=== PATIENT | male | born 1950 | race Two or more races ===

== ENCOUNTER 2022-11-14 22:21 | Emergency (ER) | payer MEDICARE, OTHER ==
[~2022-11-14] VITALS: Ht 177.8 cm; Wt 86.3 kg
[2022-11-15] MEDS ORDERED: LIDOCAINE 1% HCL (LOCAL ANESTH.) INJ 20ML MDV ONE (04:14)
[2022-11-15 04:20] VITALS: PULSE 100; RESP 16; O2SAT 97
[2022-11-15] MEDS ORDERED: MUPI2OIN2 EX (04:42)
[2022-11-15] MEDS ORDERED: CEPH500C PO (04:42)
[2022-11-15] MEDS ORDERED: NEOMYCIN-BACITRACIN-POLYM UNITDOSE PKG TOP OINT TOP ONE (04:45)
[2022-11-15] MEDS ORDERED: HYDROcodone-ACET 5/325MG TAB PO ONE (04:45)
[2022-11-15] MEDS ORDERED: ceFAZolin IM 1GM/2.5ML STERILE WATER IM ONE (04:45)
[2022-11-15] MEDS ORDERED: ceFAZolin 1GM VL ONE (04:58)
[2022-11-15 08:10] VITALS: PULSE 88; RESP 18; TEMP 98.9; O2SAT 98
[2022-11-15 08:23] VITALS: BP 156/84
== END 2022-11-15 08:22 | disposition home or self-care (01) ==
LOC: EDBD 22:21 → ER 22:21
DX: S91.115A Laceration without foreign body of left lesser toe(s) without damage to nail, initial encounter (principal); I10 Essential (primary) hypertension; E11.9 Type 2 diabetes mellitus without complications; Z79.899 Other long term (current) drug therapy; W26.8XXA Contact with other sharp object(s), not elsewhere classified, initial encounter; Y93.89 Activity, other specified; Y92.89 Other specified places as the place of occurrence of the external cause; Y99.8 Other external cause status
CPT/HCPCS: 12004; 96372; 99285; J0690; J2001

== ENCOUNTER 2024-01-06 10:53 | Inpatient (IN) | payer MEDICARE, OTHER ==
[~2024-01-06] VITALS: Ht 177.8 cm; Wt 68.3 kg
[~2024-01-06 10:53] MED LIST: CEPH500C PO; HYDR25TA4 PO; MELO15TA29 PO; MUPI2OIN2 EX; SEMA4INJ SC
[2024-01-06 11:15] VITALS: PULSE 113; RESP 25; O2SAT 97
[2024-01-06] MEDS: ONDANSETRON HCL 4 MG/2 ML VIAL IV ONE (11:30)
[2024-01-06] MEDS: SODIUM CHLORIDE 0.9% 1,000 ML IV ONE (11:30)
[2024-01-06] MEDS: SODIUM CHLORIDE 0.9% 500 ML IV ONE (11:30)
[2024-01-06] MEDS: InsuLIN REG 1unit/0.01ml Soln (100units/ml) IV ONE (11:31)
[2024-01-06 11:33] LABS: Basophils # (auto) 0 10 ^3/uL (0-0.2); Eosinophils # (auto) 0 10 ^3/uL (0-0.8); Lymphocytes # (auto) 0.6 10 ^3/uL (0.4-5.4); Mean Corpuscular Hemoglobin 36.4 pg (28.0-32.0)
[2024-01-06 11:35] LABS: Basophils % (auto) 0.2 % (0.0-2.0); Hematocrit 49.5 % (41.0-53.0); Hemoglobin 16.1 g/dL (13.5-17.5); Lymphocytes % (auto) 3.8 % (10.0-50.0); Mean Corpuscular Hgb Conc. 32.4 g/dL (32.0-36.0); Mean Corpuscular Volume 112.2 fL (80.0-100.0); Monocytes # (auto) 1.2 10 ^3/uL (0-1.3); Monocytes % (auto) 7.4 % (0.0-12.0); Neutrophils # (auto) 14.1 10 ^3/uL (1.6-8.6); Neutrophils % (auto) 88.6 % (37.0-80.0); Nucleated Red Blood Cells % 0.1 %; Platelet Count (auto) 286 10^3/uL (140-450); Red Blood Cells 4.41 10^6/uL (4.5-5.90); Red Cell Distribution Width 13.5 % (11.8-14.3); White Blood Cell 15.9 10^3/uL (4.4-10.8)
[2024-01-06 11:44] LABS: Chloride 97 mmol/L (98-107); Sodium 139 mmol/L (136-145)
[2024-01-06 11:45] LABS: Anion Gap 32.00001 (5-15); Calcium 9.5 mg/dL (8.7-10.4)
[2024-01-06 11:50] LABS: BUN/Creatinine Ratio 12.3 (10.0-20.0); Blood Urea Nitrogen 31 mg/dL (9-23)
[2024-01-06 11:56] LABS: Carbon Dioxide < 10 mmol/L (20-31); Glucose 503 mg/dL (74-106); Potassium 5.8 mmol/L (3.5-5.1)
[2024-01-06] MEDS ORDERED: DEXTROSE (50%) 50ML SYRG IV PRN (12:00)
[2024-01-06] MEDS: SODIUM BICARB 8.4% 50Meq/50ml SYR Vial IV ONE (12:09)
[2024-01-06] MEDS: ACCU-CHEK COMFORT CURVE STRIP VI SCH (12:14)
[2024-01-06] MEDS: INSULIN DRIP 100 UNIT/100ML 100 ML IV SCH (12:15)
[2024-01-06] MEDS: INSULIN LANTUS (GLARGINE) 1 /0.01ml (100units/ml) SC ONE (12:15)
[2024-01-06 13:21] LABS: Macrocytosis Moderate; Platelet Estimate Adequate
[2024-01-06] MEDS ORDERED: AMLO1TAB22 PO (15:04)
[2024-01-06] MEDS ORDERED: CARV3.1240 PO (15:04)
[2024-01-06] MEDS ORDERED: GABA-1250 PO (15:04)
[2024-01-06] MEDS ORDERED: ATOR10TA52 PO (15:04)
[2024-01-06 15:08] LABS: Urine Bacteria None Seen /hpf (None Seen)
[2024-01-06] MEDS ORDERED: ONDANSETRON HCL 4 MG/2 ML VIAL IV PRN (15:15)
[2024-01-06 15:16] LABS: Urine Blood Negative /uL (Negative); Urine Clarity Clear (Clear); Urine Color Light-Yellow (Yellow); Urine Hyaline Cast FEW /lpf (0 - 2); Urine Mucus FEW (None Seen); Urine Protein, UAD 1+ (Negative); Urine Specific Gravity 1.017 (1.001-1.035); Urine Urobilinogen Normal (Negative); Urine WBC 1 /hpf (0 - 3)
[2024-01-06] MEDS: SODIUM CHLORIDE 0.9% 1,000 ML IV SCH (15:25)
[2024-01-06 15:30] LABS: Triglycerides 198 mg/dL (< 150)
[2024-01-06] MEDS ORDERED: hydrALAZINE HCL 20 MG/ML VL IV PRN (15:30)
[2024-01-06 15:31] LABS: LDL Cholesterol 200 mg/dL (< 100)
[2024-01-06 15:32] LABS: Cholesterol 276 mg/dL (< 200); HDL Cholesterol 72 mg/dL (40-59)
[2024-01-06 15:48] LABS: Amphetamine Screen, Urine Neg (NEGATIVE); Barbiturate Scree,Urine Neg (NEGATIVE); Benzodiazephine Screen, Urine Neg (NEGATIVE); Cocaine Screen, Urine Neg (NEGATIVE); Opiate Scree,Urine Neg (NEGATIVE)
[2024-01-06 15:49] LABS: Cannabinoid Screen, Urine Neg (NEGATIVE); Phencyclidine Screen, Urine Neg (NEGATIVE)
[2024-01-06 19:46] LABS: Chloride 106 mmol/L (98-107); Potassium 4.6 mmol/L (3.5-5.1); Sodium 143 mmol/L (136-145)
[2024-01-06 19:47] LABS: Anion Gap 19 (5-15); Carbon Dioxide 18 mmol/L (20-31)
[2024-01-06 19:53] LABS: BUN/Creatinine Ratio 16.2 (10.0-20.0); Blood Urea Nitrogen 33 mg/dL (9-23)
[2024-01-06 19:54] LABS: Glucose 219 mg/dL (74-106)
[2024-01-06] MEDS: CARVEDILOL 3.125 MG TAB PO SCH (22:00)
[2024-01-06] MEDS: GABAPENTIN 300 MG CAP PO SCH (22:09)
[2024-01-07 01:23] LABS: Chloride 107 mmol/L (98-107); Potassium 4.3 mmol/L (3.5-5.1); Sodium 141 mmol/L (136-145)
[2024-01-07 01:24] LABS: Anion Gap 12 (5-15); Carbon Dioxide 22 mmol/L (20-31)
[2024-01-07 01:29] LABS: BUN/Creatinine Ratio 16.7 (10.0-20.0); Blood Urea Nitrogen 31 mg/dL (9-23); Glucose 206 mg/dL (74-106)
[2024-01-07] MEDS ORDERED: DEXTROSE (50%) 50ML SYRG IV PRN (05:15)
[2024-01-07 07:04] LABS: Basophils # (auto) 0 10 ^3/uL (0-0.2); Eosinophils # (auto) 0 10 ^3/uL (0-0.8); Mean Corpuscular Hgb Conc. 35.1 g/dL (32.0-36.0); Neutrophils # (auto) 7.3 10 ^3/uL (1.6-8.6)
[2024-01-07 07:06] LABS: Basophils % (auto) 0.2 % (0.0-2.0); Hematocrit 41.5 % (41.0-53.0); Hemoglobin 14.6 g/dL (13.5-17.5); Lymphocytes % (auto) 11.3 % (10.0-50.0); Mean Corpuscular Hemoglobin 37.3 pg (28.0-32.0); Mean Corpuscular Volume 106.3 fL (80.0-100.0); Monocytes # (auto) 0.8 10 ^3/uL (0-1.3); Monocytes % (auto) 9.1 % (0.0-12.0); Neutrophils % (auto) 79.4 % (37.0-80.0); Nucleated Red Blood Cells % 0.2 %; Platelet Count (auto) 211 10^3/uL (140-450); Red Cell Distribution Width 12.8 % (11.8-14.3); White Blood Cell 9.2 10^3/uL (4.4-10.8)
[2024-01-07 07:35] LABS: Alanine Aminotransferase 74 U/L (7-40); Albumin 4.2 g/dL (3.2-4.8); Alkaline Phosphatase 37 U/L (46-116); Anion Gap 13 (5-15); Aspartate Aminotransferase 65 U/L (13-40); BUN/Creatinine Ratio 21.8 (10.0-20.0); Bilirubin, Total 1.2 mg/dL (0.2-1.0); Blood Urea Nitrogen 36 mg/dL (9-23); Calcium 9.1 mg/dL (8.7-10.4); Carbon Dioxide 23 mmol/L (20-31); Chloride 108 mmol/L (98-107); Glucose 133 mg/dL (74-106); Potassium 4.2 mmol/L (3.5-5.1); Sodium 144 mmol/L (136-145)
[2024-01-07 07:36] LABS: Total Protein 6.5 g/dL (5.7-8.2)
[2024-01-07] MEDS: ACCU-CHEK COMFORT CURVE STRIP VI SCH ×2 (08:00→21:49)
[2024-01-07] MEDS: InsuLIN REG 1unit/0.01ml Soln (100units/ml) SC SCH (09:31)
[2024-01-07] MEDS: ENOXAPARIN SOD 30 MG/0.3 ML SYRINGE SC SCH (10:00)
[2024-01-07] MEDS: ATORVASTATIN 20 MG TAB PO SCH (10:00)
[2024-01-07] MEDS: amLODIPine BESYLATE 5 MG TAB PO SCH (10:00)
[2024-01-07] MEDS: INSULIN LANTUS (GLARGINE) 1 /0.01ml (100units/ml) SC SCH (10:00)
[2024-01-07] MEDS ORDERED: SODIUM CHLORIDE 0.9% 1,000 ML IV SCH (15:45)
[2024-01-07] MEDS: THIAMINE 100mg/ml INJ (200mg/2ml VIAL) IV ONE (16:15)
[2024-01-07] MEDS: FOLIC ACID 1 MG in D5W 5% 50 ML INJ ONE (16:15)
[2024-01-07] MEDS: LORazepam 2MG/ML-1ML VIAL IV PRN (16:51)
[2024-01-07 19:05] VITALS: RESP 23; O2SAT 95
[2024-01-07 19:40] LABS: COVID19 ANTIGEN SOFIA FIA NEGATIVE (NEGATIVE); Rapid Influenza A Negative (Negative); Rapid Influenza B Negative (Negative)
[2024-01-07 21:56] LABS: Folate (Folic Acid) 35.81 ng/mL (>5.38)
[2024-01-07 22:53] VITALS: PULSE 113; RESP 20; O2SAT 97
[2024-01-08] VITALS (10 sets, daily range): BP systolic 114–149; BP diastolic 67–80; PULSE 101–113; RESP 18–26; TEMP 81.5–98.7; O2SAT 92–98
[2024-01-08] MEDS ORDERED: ENAL5TAB22 PO (00:22)
[2024-01-08] MEDS ORDERED: METF-370 PO (00:22)
[2024-01-08] MEDS: InsuLIN REG 1unit/0.01ml Soln (100units/ml) SC SCH ×3 (06:31→22:38)
[2024-01-08 06:41] LABS: Hematocrit 42.9 % (41.0-53.0); Red Blood Cells 3.99 10^6/uL (4.5-5.90)
[2024-01-08 06:44] LABS: Hemoglobin 15.2 g/dL (13.5-17.5); Mean Corpuscular Hgb Conc. 35.4 g/dL (32.0-36.0); Mean Corpuscular Volume 107.4 fL (80.0-100.0); Platelet Count (auto) 184 10^3/uL (140-450); Red Cell Distribution Width 13.1 % (11.8-14.3); White Blood Cell 5.3 10^3/uL (4.4-10.8)
[2024-01-08 06:55] LABS: Alanine Aminotransferase 80 U/L (7-40); Albumin 4.1 g/dL (3.2-4.8); Alkaline Phosphatase 40 U/L (46-116); Anion Gap 17 (5-15); Aspartate Aminotransferase 99 U/L (13-40); BUN/Creatinine Ratio 28.1 (10.0-20.0); Blood Urea Nitrogen 41 mg/dL (9-23); Calcium 9.2 mg/dL (8.7-10.4); Carbon Dioxide 20 mmol/L (20-31); Chloride 110 mmol/L (98-107); Magnesium 2.1 mg/dL (1.6-2.6); Potassium 4.6 mmol/L (3.5-5.1); Sodium 147 mmol/L (136-145)
[2024-01-08 06:56] LABS: Phosphorus 2.5 mg/dL (2.4-5.1); Total Protein 6.6 g/dL (5.7-8.2)
[2024-01-08 06:57] LABS: Glucose 289 mg/dL (74-106)
[2024-01-08 07:19] LABS: Basophils % (manual) 0 (0.0-2.0); Blast Cells 0; Eosinophils % (manual) 0 (0-7); Metamyelocytes % 0; Myelocytes % 0; Promyelocytes % 0; Reactive Lymphocytes 0
[2024-01-08] MEDS: FOLIC ACID 1 MG in D5W 5% 50 ML INJ SCH (10:00)
[2024-01-08] MEDS: THIAMINE 100mg/ml INJ (200mg/2ml VIAL) IV SCH (10:41)
[2024-01-08] MEDS: ATORVASTATIN 20 MG TAB PO SCH ×2 (10:46→22:46)
[2024-01-08 10:54] LABS: Band Neutrophils % (manual) 20; Lymphocytes % (manual) 12 (10.0-50.0); Macrocytosis Moderate; Monocytes % (manual) 10 (0-12); Platelet Estimate Adequate
[2024-01-08] MEDS ORDERED: DEXTROSE (50%) 50ML SYRG IV PRN (11:30)
[2024-01-08] MEDS: INSULIN LANTUS (GLARGINE) 1 /0.01ml (100units/ml) SC SCH (11:30)
[2024-01-08] MEDS: ACCU-CHEK COMFORT CURVE STRIP VI SCH (11:30)
[2024-01-08] MEDS ORDERED: SODIUM CHLORIDE 0.9% 1,000 ML IV SCH (12:30)
[2024-01-08] MEDS: ASPirin 81 mg TAB PO ONE (13:00)
[2024-01-08] MEDS: SODIUM CHLORIDE 0.9% 1,000 ML IV SCH (14:45)
[2024-01-08 15:11] LABS: Hematocrit 42.9 % (41.0-53.0); Hemoglobin 14.9 g/dL (13.5-17.5); Mean Corpuscular Hemoglobin 37.3 pg (28.0-32.0); Mean Corpuscular Hgb Conc. 34.8 g/dL (32.0-36.0); Mean Corpuscular Volume 107.4 fL (80.0-100.0); Platelet Count (auto) 196 10^3/uL (140-450); Red Blood Cells 3.99 10^6/uL (4.5-5.90); Red Cell Distribution Width 13.1 % (11.8-14.3); White Blood Cell 4.5 10^3/uL (4.4-10.8)
[2024-01-08 15:24] LABS: Basophils % (manual) 0 (0.0-2.0); Blast Cells 0; Eosinophils % (manual) 0 (0-7); Metamyelocytes % 0; Myelocytes % 0; Promyelocytes % 0; Reactive Lymphocytes 0
[2024-01-08 15:30] LABS: INR 1.04 (0.9-1.15); Partial Thromboplastin Time 24.5 SEC (24.5-34.5)
[2024-01-08 16:09] LABS: Band Neutrophils % (manual) 7; Lymphocytes % (manual) 28 (10.0-50.0); Monocytes % (manual) 9 (0-12)
[2024-01-08 16:10] LABS: Macrocytosis Slight; Platelet Estimate Adequate
[2024-01-08] MEDS: IPRATROPIUM BROM 0.5 MG/2.5ML INH SOL NEB PRN (18:28)
[2024-01-08] MEDS: ALBUTEROL SULF 2.5 MG/0.5ML(0.5%) NEB SOLN NEB PRN (18:28)
[2024-01-08] MEDS: ACETYLCYSTEINE 20%(200MG/ML) SOL 4ML NEB SCH (18:29)
[2024-01-08] MEDS: HEPARIN DRIP/D5W 100UNITS/ML 250 ML IV SCH (19:09)
[2024-01-08] MEDS ORDERED: ATORVASTATIN 20 MG TAB PO SCH (22:00)
[2024-01-08] MEDS: FUROSEMIDE 20 MG/2 ML VIAL IV SCH (22:44)
[2024-01-08 23:25] LABS: INR 1.05 (0.9-1.15); Partial Thromboplastin Time 26.2 SEC (24.5-34.5); Prothrombin Time 11.1 sec (9.3-11.8)
[2024-01-09] VITALS (15 sets, daily range): BP systolic 109–133; BP diastolic 63–78; PULSE 57–114; RESP 14–22; TEMP 97.7–100.4; O2SAT 92–100
[2024-01-09] MEDS: HEPARIN DRIP/D5W 100UNITS/ML 250 ML IV SCH
[2024-01-09] MEDS: HEPARIN SODIUM (PORCINE) 5000 UNITS/ML 1ML VIAL IV ONE (00:01)
[2024-01-09 06:34] LABS: Basophils # (auto) 0 10 ^3/uL (0-0.2); Eosinophils # (auto) 0 10 ^3/uL (0-0.8); Hematocrit 43.5 % (41.0-53.0); Lymphocytes # (auto) 0.5 10 ^3/uL (0.4-5.4); Monocytes # (auto) 0.4 10 ^3/uL (0-1.3); Neutrophils # (auto) 2.3 10 ^3/uL (1.6-8.6); Platelet Count (auto) 198 10^3/uL (140-450)
[2024-01-09 06:58] LABS: Alanine Aminotransferase 69 U/L (7-40); Alkaline Phosphatase 40 U/L (46-116); Anion Gap 15 (5-15); Aspartate Aminotransferase 70 U/L (13-40); BUN/Creatinine Ratio 28.8 (10.0-20.0); Blood Urea Nitrogen 42 mg/dL (9-23); Calcium 9.2 mg/dL (8.7-10.4); Carbon Dioxide 23 mmol/L (20-31); Chloride 111 mmol/L (98-107); Glucose 197 mg/dL (74-106); Hemoglobin 15.2 g/dL (13.5-17.5); Lymphocytes % (auto) 15.4 % (10.0-50.0); Magnesium 1.9 mg/dL (1.6-2.6); Mean Corpuscular Hemoglobin 37.5 pg (28.0-32.0); Monocytes % (auto) 11.9 % (0.0-12.0); Neutrophils % (auto) 72.7 % (37.0-80.0); Nucleated Red Blood Cells % 0.1 %; Red Blood Cells 4.06 10^6/uL (4.5-5.90); Red Cell Distribution Width 13.3 % (11.8-14.3); Sodium 149 mmol/L (136-145); White Blood Cell 3.2 10^3/uL (4.4-10.8)
[2024-01-09 06:59] LABS: Bilirubin, Total 2.9 mg/dL (0.2-1.0); INR 1.09 (0.9-1.15); Partial Thromboplastin Time 46.2 SEC (24.5-34.5); Phosphorus 2.5 mg/dL (2.4-5.1); Prothrombin Time 11.5 sec (9.3-11.8); Total Protein 6.6 g/dL (5.7-8.2)
[2024-01-09] MEDS ORDERED: ASPirin 81 mg TAB PO SCH (10:00)
[2024-01-09] MEDS: ISOSORBIDE MONONITRATE ER 60 MG TAB PO ONE (12:30)
[2024-01-09 12:36] LABS: INR 1.11 (0.9-1.15); Partial Thromboplastin Time 59.9 SEC (24.5-34.5); Prothrombin Time 11.7 sec (9.3-11.8)
[2024-01-09] MEDS: hydrALAZINE HCL 25 MG TAB PO SCH (14:00)
[2024-01-09] MEDS ORDERED: Glucerna 1.2 Cal 1Liter BOTTLE GT SCH (15:45)
[2024-01-09] MEDS: FREE WATER GT SCH (18:00)
[2024-01-09] MEDS: FUROSEMIDE 20 MG/2 ML VIAL IV SCH (21:59)
[2024-01-09] MEDS: SACUBITRIL-VALSARTAN 24mg/26mg TAB PO SCH (22:00)
[2024-01-10] VITALS (17 sets, daily range): BP systolic 122–179; BP diastolic 75–101; PULSE 67–121; RESP 17–36; TEMP 97.5–98.6; O2SAT 6–99
[2024-01-10] MEDS: hydrALAZINE HCL 20 MG/ML VL IV PRN (05:22)
[2024-01-10 07:11] LABS: Basophils # (auto) 0 10 ^3/uL (0-0.2); Basophils % (auto) 0.1 % (0.0-2.0); Eosinophils # (auto) 0 10 ^3/uL (0-0.8); Hematocrit 46.5 % (41.0-53.0); Hemoglobin 16.3 g/dL (13.5-17.5); Lymphocytes % (auto) 15.1 % (10.0-50.0); Mean Corpuscular Volume 108.5 fL (80.0-100.0); Monocytes # (auto) 0.9 10 ^3/uL (0-1.3); Monocytes % (auto) 13.7 % (0.0-12.0); Neutrophils # (auto) 4.6 10 ^3/uL (1.6-8.6); Neutrophils % (auto) 71.1 % (37.0-80.0); Platelet Count (auto) 227 10^3/uL (140-450); Red Blood Cells 4.28 10^6/uL (4.5-5.90); Red Cell Distribution Width 13.1 % (11.8-14.3); White Blood Cell 6.5 10^3/uL (4.4-10.8)
[2024-01-10 07:15] LABS: Alanine Aminotransferase 58 U/L (7-40); Albumin 4.2 g/dL (3.2-4.8); Alkaline Phosphatase 52 U/L (46-116); Anion Gap 19 (5-15); Aspartate Aminotransferase 49 U/L (13-40); BUN/Creatinine Ratio 32.3 (10.0-20.0); Calcium 9.2 mg/dL (8.7-10.4); Carbon Dioxide 20 mmol/L (20-31); Chloride 113 mmol/L (98-107); Glucose 199 mg/dL (74-106); Magnesium 2.3 mg/dL (1.6-2.6); Potassium 3.9 mmol/L (3.5-5.1); Sodium 152 mmol/L (136-145)
[2024-01-10 07:16] LABS: Bilirubin, Total 2.6 mg/dL (0.2-1.0); Phosphorus 3.7 mg/dL (2.4-5.1); Total Protein 7.1 g/dL (5.7-8.2)
[2024-01-10 07:18] LABS: Blood Urea Nitrogen 65 mg/dL (9-23)
[2024-01-10] MEDS: ISOSORBIDE MONONITRATE ER 60 MG TAB PO SCH (10:00)
[2024-01-10 10:37] LABS: Free T3 1.64 pg/mL (2.3-4.2)
[2024-01-10 10:39] LABS: Base Excess -0.7 mmol/L (-2.0-3.0)
[2024-01-10 10:40] LABS: Free T4 (Free Thyroxine) 1.51 ng/dL (0.89-1.76)
[2024-01-10] MEDS ORDERED: DEXTROSE (50%) 50ML SYRG IV PRN (11:00)
[2024-01-10] MEDS: EMPAGLIFLOZIN 10 MG TAB PO SCH (11:58)
[2024-01-10] MEDS: INSULIN LANTUS (GLARGINE) 1 /0.01ml (100units/ml) SC SCH (12:01)
[2024-01-10] MEDS: InsuLIN REG 1unit/0.01ml Soln (100units/ml) SC SCH (12:03)
[2024-01-10] MEDS: ACCU-CHEK COMFORT CURVE STRIP VI SCH (12:05)
[2024-01-10] MEDS: SODIUM CHLORIDE 0.9% 1,000 ML IV ONE (15:30)
[2024-01-10] MEDS: PIPERACILLIN-TAZOB 3.375GM 100 ML IV ONE (17:52)
[2024-01-10] MEDS: SACUBITRIL-VALSARTAN 24mg/26mg TAB PO SCH (22:00)
[2024-01-10] MEDS: PIPERACILLIN-TAZOB 3.375GM 100 ML IV SCH (22:38)
[2024-01-11] VITALS (13 sets, daily range): BP systolic 109–144; BP diastolic 53–96; PULSE 67–118; RESP 20–32; TEMP 98.9–101; O2SAT 94–99
[2024-01-11 08:04] LABS: Base Excess 0.1 mmol/L (-2.0-3.0)
[2024-01-11 08:32] LABS: Basophils # (auto) 0 10 ^3/uL (0-0.2); Eosinophils # (auto) 0 10 ^3/uL (0-0.8)
[2024-01-11 08:43] LABS: Basophils % (auto) 0.1 % (0.0-2.0); Hematocrit 49.8 % (41.0-53.0); Hemoglobin 16.8 g/dL (13.5-17.5); Lymphocytes # (auto) 0.5 10 ^3/uL (0.4-5.4); Lymphocytes % (auto) 9.7 % (10.0-50.0); Mean Corpuscular Hemoglobin 38.6 pg (28.0-32.0); Mean Corpuscular Hgb Conc. 33.6 g/dL (32.0-36.0); Mean Corpuscular Volume 114.8 fL (80.0-100.0); Monocytes # (auto) 0.8 10 ^3/uL (0-1.3); Monocytes % (auto) 13.5 % (0.0-12.0); Neutrophils # (auto) 4.3 10 ^3/uL (1.6-8.6); Neutrophils % (auto) 76.7 % (37.0-80.0); Nucleated Red Blood Cells % 0.1 %; Platelet Count (auto) 126 10^3/uL (140-450); Red Blood Cells 4.34 10^6/uL (4.5-5.90); Red Cell Distribution Width 14.5 % (11.8-14.3); White Blood Cell 5.6 10^3/uL (4.4-10.8)
[2024-01-11 08:46] LABS: Alanine Aminotransferase 53 U/L (7-40); Alkaline Phosphatase 50 U/L (46-116); Anion Gap 16 (5-15); Aspartate Aminotransferase 87 U/L (13-40); BUN/Creatinine Ratio 27.2 (10.0-20.0); Blood Urea Nitrogen 61 mg/dL (9-23); Carbon Dioxide 23 mmol/L (20-31); Chloride 121 mmol/L (98-107); Glucose 138 mg/dL (74-106); Magnesium 2.6 mg/dL (1.6-2.6); Potassium 4.1 mmol/L (3.5-5.1)
[2024-01-11 08:47] LABS: Bilirubin, Total 2.2 mg/dL (0.2-1.0); Total Protein 6.9 g/dL (5.7-8.2)
[2024-01-11 08:51] LABS: Sodium 160 mmol/L (136-145)
[2024-01-11] MEDS ORDERED: FUROSEMIDE 20 MG/2 ML VIAL IV SCH (10:00)
[2024-01-11] MEDS: D5W 5% 1,000 ML IV SCH (11:30)
[2024-01-11] MEDS: ENOXAPARIN SOD 40 MG/0.4 ML SYRINGE SC SCH (12:04)
[2024-01-11 12:59] LABS: Protein, Urine 135.1 mg/dL (1-14)
[2024-01-11 13:02] LABS: Creatinine, Urine 90.19 mg/dL (30.0-125.0); Creatinine, Urine 90.38 mg/dL (30.0-125.0); Urine Protein/Creatinine Ratio 1.5
[2024-01-11 13:30] LABS: Urine Amorphous Crystal FEW /hpf (None Seen); Urine Bacteria FEW /hpf (None Seen); Urine Blood 3+ /uL (Negative); Urine Budding Yeast OCCASIONAL /hpf (None Seen); Urine Color Yellow (Yellow); Urine Hyaline Cast FEW /lpf (0 - 2); Urine Protein, UAD 1+ (Negative); Urine Specific Gravity 1.028 (1.001-1.035); Urine Urobilinogen Normal (Negative); Urine WBC 2 /hpf (0 - 3); Urine pH 5.5 (5.0-9.0)
[2024-01-11 13:44] LABS: Urine Clarity Cloudy (Clear)
[2024-01-12] VITALS (65 sets, daily range): BP systolic 86–137; BP diastolic 45–80; PULSE 85–116; RESP 15–36; TEMP 98.2–99.5; O2SAT 91–99
[2024-01-12 04:38] LABS: COVID19 ANTIGEN SOFIA FIA NEGATIVE (NEGATIVE); Rapid Influenza A Negative (Negative); Rapid Influenza B Negative (Negative)
[2024-01-12] MEDS: NOREPINEPHRINE 8 MG/250ML KIT 250 ML IV ONE (04:51)
[2024-01-12] MEDS: NOREPINEPHRINE 8 MG/250ML KIT 250 ML IV SCH (05:00)
[2024-01-12 05:06] LABS: Alanine Aminotransferase 72 U/L (7-40); Albumin 3.4 g/dL (3.2-4.8); Alkaline Phosphatase 53 U/L (46-116); Anion Gap 12 (5-15); Aspartate Aminotransferase 141 U/L (13-40); BUN/Creatinine Ratio 24.8 (10.0-20.0); Calcium 8.1 mg/dL (8.7-10.4); Carbon Dioxide 24 mmol/L (20-31); Chloride 116 mmol/L (98-107); Magnesium 2.5 mg/dL (1.6-2.6); Potassium 3.3 mmol/L (3.5-5.1)
[2024-01-12 05:07] LABS: Bilirubin, Total 1.3 mg/dL (0.2-1.0); Phosphorus 3.9 mg/dL (2.4-5.1); Total Protein 5.8 g/dL (5.7-8.2)
[2024-01-12 05:24] LABS: Basophils # (auto) 0 10 ^3/uL (0-0.2); Basophils % (auto) 0.1 % (0.0-2.0); Eosinophils # (auto) 0 10 ^3/uL (0-0.8); Lymphocytes # (auto) 0.8 10 ^3/uL (0.4-5.4); Red Cell Distribution Width 13.5 % (11.8-14.3); White Blood Cell 9.4 10^3/uL (4.4-10.8)
[2024-01-12 05:25] LABS: Blood Urea Nitrogen 78 mg/dL (9-23); Glucose 378 mg/dL (74-106); Sodium 152 mmol/L (136-145)
[2024-01-12 05:26] LABS: Hematocrit 41.1 % (41.0-53.0); Hemoglobin 14.1 g/dL (13.5-17.5); Lymphocytes % (auto) 8.7 % (10.0-50.0); Mean Corpuscular Hemoglobin 37.5 pg (28.0-32.0); Mean Corpuscular Hgb Conc. 34.3 g/dL (32.0-36.0); Mean Corpuscular Volume 109.3 fL (80.0-100.0); Monocytes # (auto) 0.8 10 ^3/uL (0-1.3); Monocytes % (auto) 8.8 % (0.0-12.0); Neutrophils # (auto) 7.8 10 ^3/uL (1.6-8.6); Neutrophils % (auto) 82.4 % (37.0-80.0); Platelet Count (auto) 197 10^3/uL (140-450); Red Blood Cells 3.76 10^6/uL (4.5-5.90)
[2024-01-12 07:07] LABS: Base Excess -3.1 mmol/L (-2.0-3.0)
[2024-01-12] MEDS: FUROSEMIDE 20 MG/2 ML VIAL IV ONE (10:40)
[2024-01-12] MEDS: IPRATROPIUM BROM 0.5 MG/2.5ML INH SOL NEB ONE (11:45)
[2024-01-12] MEDS: ALBUTEROL SULF 2.5 MG/0.5ML(0.5%) NEB SOLN NEB ONE (11:45)
[2024-01-12] MEDS ORDERED: methylPREDNISolone SOD SUCC 500 MG in SODIUM CHL 0.9% 100 ML IV ONE (11:45)
[2024-01-12] MEDS ORDERED: IPRATROPIUM BROM 0.5 MG/2.5ML INH SOL NEB SCH (12:00)
[2024-01-12] MEDS: LACTULOSE 20Gm/30ML SOLN PO ONE (12:41)
[2024-01-12] MEDS: methylPREDNISolone SOD SUCC 40 MG/ML VL IV ONE (12:42)
[2024-01-12] MEDS: PIPERACILLIN-TAZOB 3.375GM 100 ML IV ONE (12:49)
[2024-01-12] MEDS ORDERED: ALBUTEROL SULF 2.5 MG/0.5ML(0.5%) NEB SOLN NEB SCH (14:00)
[2024-01-12] MEDS: IPRATROPIUM BROM 0.5 MG/2.5ML INH SOL NEB SCH (14:08)
[2024-01-12] MEDS: ALBUTEROL SULF 2.5 MG/0.5ML(0.5%) NEB SOLN NEB SCH (14:09)
[2024-01-12] MEDS: POTASSIUM CHL 20MEQ/100ML 100 ML IV SCH (16:31)
[2024-01-12] MEDS: methylPREDNISolone SOD SUCC 40 MG/ML VL IV SCH (16:34)
[2024-01-12] MEDS: SOD CHL 0.45% 1,000 ML IV SCH (19:00)
[2024-01-12] MEDS: D5W 5% 1,000 ML IV SCH (19:00)
[2024-01-12] MEDS: LACTULOSE 20Gm/30ML SOLN PO SCH (22:00)
[2024-01-12] MEDS: PIPERACILLIN-TAZOB 3.375GM 100 ML IV SCH (22:29)
[2024-01-13] VITALS (40 sets, daily range): BP systolic 81–133; BP diastolic 51–80; PULSE 85–105; RESP 15–25; TEMP 98.1–99.7; O2SAT 87–99
[2024-01-13 04:24] LABS: Anion Gap 12 (5-15); Carbon Dioxide 22 mmol/L (20-31); Chloride 117 mmol/L (98-107); Potassium 3.7 mmol/L (3.5-5.1); Sodium 151 mmol/L (136-145)
[2024-01-13 04:25] LABS: Calcium 8.1 mg/dL (8.7-10.4)
[2024-01-13 04:29] LABS: Glucose 315 mg/dL (74-106)
[2024-01-13 04:30] LABS: BUN/Creatinine Ratio 22.7 (10.0-20.0)
[2024-01-13 04:34] LABS: Blood Urea Nitrogen 63 mg/dL (9-23)
[2024-01-13 06:38] LABS: Basophils # (auto) 0 10 ^3/uL (0-0.2); Basophils % (auto) 0.1 % (0.0-2.0); Eosinophils # (auto) 0 10 ^3/uL (0-0.8); Monocytes # (auto) 0.4 10 ^3/uL (0-1.3)
[2024-01-13 06:40] LABS: Hematocrit 41.7 % (41.0-53.0); Hemoglobin 14.3 g/dL (13.5-17.5); Lymphocytes # (auto) 0.5 10 ^3/uL (0.4-5.4); Lymphocytes % (auto) 5.7 % (10.0-50.0); Mean Corpuscular Hemoglobin 37.6 pg (28.0-32.0); Mean Corpuscular Hgb Conc. 34.2 g/dL (32.0-36.0); Mean Corpuscular Volume 109.9 fL (80.0-100.0); Monocytes % (auto) 4.4 % (0.0-12.0); Neutrophils # (auto) 8.1 10 ^3/uL (1.6-8.6); Neutrophils % (auto) 89.8 % (37.0-80.0); Platelet Count (auto) 209 10^3/uL (140-450); Red Blood Cells 3.79 10^6/uL (4.5-5.90); Red Cell Distribution Width 13.6 % (11.8-14.3)
[2024-01-13] MEDS: POTASSIUM CHL 20MEQ/100ML 100 ML IV SCH (12:36)
[2024-01-13] MEDS: PANTOPRAZOLE 40 MG/10 ML VIAL INJ IV ONE (16:31)
[2024-01-14] VITALS (24 sets, daily range): BP systolic 117–145; BP diastolic 70–90; PULSE 81–104; RESP 15–22; TEMP 97.9–99.5; O2SAT 92–98
[2024-01-14 07:11] LABS: Basophils # (auto) 0 10 ^3/uL (0-0.2); Eosinophils # (auto) 0 10 ^3/uL (0-0.8); Hemoglobin 13.3 g/dL (13.5-17.5); Lymphocytes # (auto) 0.9 10 ^3/uL (0.4-5.4); Monocytes # (auto) 0.6 10 ^3/uL (0-1.3); Red Cell Distribution Width 13.1 % (11.8-14.3)
[2024-01-14 07:13] LABS: Basophils % (auto) 0.1 % (0.0-2.0); Eosinophils % (auto) 0.1 % (0.0-7.0); Hematocrit 38.6 % (41.0-53.0); Lymphocytes % (auto) 6.3 % (10.0-50.0); Mean Corpuscular Hemoglobin 37.1 pg (28.0-32.0); Mean Corpuscular Hgb Conc. 34.6 g/dL (32.0-36.0); Mean Corpuscular Volume 107.4 fL (80.0-100.0); Neutrophils # (auto) 12.8 10 ^3/uL (1.6-8.6); Neutrophils % (auto) 89.5 % (37.0-80.0); Nucleated Red Blood Cells % 0.2 %; Platelet Count (auto) 224 10^3/uL (140-450); White Blood Cell 14.3 10^3/uL (4.4-10.8)
[2024-01-14 07:33] LABS: Alanine Aminotransferase 128 U/L (7-40); Albumin 3.4 g/dL (3.2-4.8); Alkaline Phosphatase 85 U/L (46-116); Anion Gap 10 (5-15); Aspartate Aminotransferase 297 U/L (13-40); BUN/Creatinine Ratio 26.1 (10.0-20.0); Calcium 7.7 mg/dL (8.7-10.4); Carbon Dioxide 24 mmol/L (20-31); Chloride 117 mmol/L (98-107); Potassium 3.4 mmol/L (3.5-5.1); Sodium 151 mmol/L (136-145)
[2024-01-14 07:34] LABS: Bilirubin, Total 0.8 mg/dL (0.2-1.0); Total Protein 5.9 g/dL (5.7-8.2)
[2024-01-14 07:37] LABS: Blood Urea Nitrogen 46 mg/dL (9-23); Glucose 122 mg/dL (74-106); Magnesium 2.6 mg/dL (1.6-2.6)
[2024-01-14] MEDS: PANTOPRAZOLE 40 MG/10 ML VIAL INJ IV SCH (09:46)
[2024-01-14] MEDS ORDERED: Glucerna 1.2 Cal 1Liter BOTTLE GT SCH (13:45)
[2024-01-14] MEDS: Glucerna 1.2 Cal 1Liter BOTTLE GT SCH (15:08)
[2024-01-14] MEDS: D5W 5% 1,000 ML IV SCH (16:00)
[2024-01-14] MEDS: POTASSIUM EFFERVESENT TAB 25 MEQ GT ONE (17:36)
[2024-01-14] MEDS: ALBUTEROL SULF 2.5 MG/0.5ML(0.5%) NEB SOLN NEB SCH (19:39)
[2024-01-14] MEDS: IPRATROPIUM BROM 0.5 MG/2.5ML INH SOL NEB SCH (19:40)
[2024-01-14] MEDS: ACETYLCYSTEINE 20%(200MG/ML) SOL 4ML NEB SCH (19:40)
[2024-01-15] VITALS (14 sets, daily range): BP systolic 125–155; BP diastolic 77–93; PULSE 89–110; RESP 16–22; TEMP 98.3–99.7; O2SAT 92–98
[2024-01-15 06:39] LABS: Basophils # (auto) 0 10 ^3/uL (0-0.2); Basophils % (auto) 0.1 % (0.0-2.0); Eosinophils # (auto) 0 10 ^3/uL (0-0.8); Eosinophils % (auto) 0.1 % (0.0-7.0); Lymphocytes # (auto) 0.8 10 ^3/uL (0.4-5.4); Neutrophils % (auto) 89.7 % (37.0-80.0); White Blood Cell 14.1 10^3/uL (4.4-10.8)
[2024-01-15 06:42] LABS: Alanine Aminotransferase 149 U/L (7-40); Albumin 3.4 g/dL (3.2-4.8); Alkaline Phosphatase 107 U/L (46-116); Anion Gap 9 (5-15); Aspartate Aminotransferase 256 U/L (13-40); BUN/Creatinine Ratio 22.9 (10.0-20.0); Bilirubin, Total 0.8 mg/dL (0.2-1.0); Blood Urea Nitrogen 39 mg/dL (9-23); Calcium 8.5 mg/dL (8.7-10.4); Carbon Dioxide 23 mmol/L (20-31); Chloride 120 mmol/L (98-107); Glucose 188 mg/dL (74-106); Magnesium 2.6 mg/dL (1.6-2.6); Potassium 3.9 mmol/L (3.5-5.1); Sodium 152 mmol/L (136-145); Total Protein 6.1 g/dL (5.7-8.2)
[2024-01-15 06:44] LABS: Hematocrit 41.7 % (41.0-53.0); Hemoglobin 14.5 g/dL (13.5-17.5); Lymphocytes % (auto) 5.3 % (10.0-50.0); Mean Corpuscular Hemoglobin 37.3 pg (28.0-32.0); Mean Corpuscular Hgb Conc. 34.7 g/dL (32.0-36.0); Mean Corpuscular Volume 107.4 fL (80.0-100.0); Monocytes # (auto) 0.7 10 ^3/uL (0-1.3); Monocytes % (auto) 4.8 % (0.0-12.0); Neutrophils # (auto) 12.6 10 ^3/uL (1.6-8.6); Platelet Count (auto) 227 10^3/uL (140-450); Red Blood Cells 3.88 10^6/uL (4.5-5.90); Red Cell Distribution Width 13.1 % (11.8-14.3)
[2024-01-15] MEDS: ACETAMINOPHEN 325 MG TAB PO PRN (09:21)
[2024-01-15] MEDS: FREE WATER GT SCH (18:00)
[2024-01-16] VITALS (20 sets, daily range): BP systolic 138–166; BP diastolic 84–97; PULSE 98–120; RESP 16–36; TEMP 98–99.8; O2SAT 88–98
[2024-01-16 04:57] LABS: Basophils # (auto) 0 10 ^3/uL (0-0.2); Eosinophils # (auto) 0 10 ^3/uL (0-0.8); Hematocrit 43.2 % (41.0-53.0); Monocytes # (auto) 0.5 10 ^3/uL (0-1.3)
[2024-01-16 05:00] LABS: Eosinophils % (auto) 0.3 % (0.0-7.0); Hemoglobin 14.9 g/dL (13.5-17.5); Lymphocytes # (auto) 0.8 10 ^3/uL (0.4-5.4); Lymphocytes % (auto) 6.7 % (10.0-50.0); Mean Corpuscular Hemoglobin 36.8 pg (28.0-32.0); Mean Corpuscular Hgb Conc. 34.4 g/dL (32.0-36.0); Mean Corpuscular Volume 107.1 fL (80.0-100.0); Monocytes % (auto) 4.3 % (0.0-12.0); Neutrophils # (auto) 11.1 10 ^3/uL (1.6-8.6); Neutrophils % (auto) 88.7 % (37.0-80.0); Platelet Count (auto) 269 10^3/uL (140-450); Red Blood Cells 4.04 10^6/uL (4.5-5.90); Red Cell Distribution Width 13.1 % (11.8-14.3); White Blood Cell 12.6 10^3/uL (4.4-10.8)
[2024-01-16 05:18] LABS: Alanine Aminotransferase 125 U/L (7-40); Albumin 3.4 g/dL (3.2-4.8); Alkaline Phosphatase 97 U/L (46-116); Anion Gap 11 (5-15); Aspartate Aminotransferase 133 U/L (13-40); BUN/Creatinine Ratio 23.5 (10.0-20.0); Blood Urea Nitrogen 36 mg/dL (9-23); Calcium 9.4 mg/dL (8.7-10.4); Carbon Dioxide 23 mmol/L (20-31); Chloride 118 mmol/L (98-107); Glucose 209 mg/dL (74-106); Magnesium 2.2 mg/dL (1.6-2.6); Potassium 3.5 mmol/L (3.5-5.1); Sodium 152 mmol/L (136-145); Total Protein 6.2 g/dL (5.7-8.2)
[2024-01-16] MEDS: LACTULOSE 20Gm/30ML SOLN PO SCH (11:27)
[2024-01-16] MEDS: FUROSEMIDE 20 MG/2 ML VIAL IV ONE (16:31)
[2024-01-16] MEDS: FREE WATER GT SCH (18:20)
[2024-01-16] MEDS: FUROSEMIDE 40 MG/4 ML VIAL IV ONE (21:51)
[2024-01-17] VITALS (54 sets, daily range): BP systolic 80–155; BP diastolic 52–94; PULSE 99–138; RESP 18–43; TEMP 98.1–101.1; O2SAT 86–99
[2024-01-17 07:27] LABS: Basophils # (auto) 0 10 ^3/uL (0-0.2); Basophils % (auto) 0.1 % (0.0-2.0); Eosinophils # (auto) 0 10 ^3/uL (0-0.8); Eosinophils % (auto) 0.1 % (0.0-7.0); Monocytes # (auto) 0.4 10 ^3/uL (0-1.3)
[2024-01-17 07:29] LABS: Hematocrit 44.4 % (41.0-53.0); Hemoglobin 15.2 g/dL (13.5-17.5); Lymphocytes # (auto) 1.1 10 ^3/uL (0.4-5.4); Lymphocytes % (auto) 9.5 % (10.0-50.0); Mean Corpuscular Hemoglobin 36.6 pg (28.0-32.0); Mean Corpuscular Hgb Conc. 34.1 g/dL (32.0-36.0); Mean Corpuscular Volume 107.2 fL (80.0-100.0); Monocytes % (auto) 3.4 % (0.0-12.0); Neutrophils # (auto) 10.3 10 ^3/uL (1.6-8.6); Neutrophils % (auto) 86.9 % (37.0-80.0); Platelet Count (auto) 298 10^3/uL (140-450); Red Blood Cells 4.14 10^6/uL (4.5-5.90); Red Cell Distribution Width 12.9 % (11.8-14.3); White Blood Cell 11.8 10^3/uL (4.4-10.8)
[2024-01-17 07:33] LABS: Alanine Aminotransferase 92 U/L (7-40); Albumin 3.3 g/dL (3.2-4.8); Alkaline Phosphatase 99 U/L (46-116); Anion Gap 12 (5-15); Aspartate Aminotransferase 88 U/L (13-40); BUN/Creatinine Ratio 20.8 (10.0-20.0); Blood Urea Nitrogen 42 mg/dL (9-23); Calcium 10.1 mg/dL (8.7-10.4); Carbon Dioxide 26 mmol/L (20-31); Chloride 114 mmol/L (98-107); Potassium 3.6 mmol/L (3.5-5.1); Sodium 152 mmol/L (136-145); Total Protein 6.2 g/dL (5.7-8.2)
[2024-01-17 07:35] LABS: Glucose 321 mg/dL (74-106)
[2024-01-17] MEDS ORDERED: FUROSEMIDE 20 MG/2 ML VIAL IV SCH (10:00)
[2024-01-17] MEDS: FUROSEMIDE 20 MG/2 ML VIAL IV SCH ×2 (11:23→18:53)
[2024-01-17 11:25] LABS: Hepatitis B Core Total AB Negative (Negative)
[2024-01-17] MEDS ORDERED: DOBUTamine 1000MCG/ML 250 ML IV SCH (11:45)
[2024-01-17 11:46] LABS: Hepatitis A Total Antibody Negative (Negative); Hepatitis B Surface Antibody Negative (Negative); Hepatitis B Surface Antigen Negative (Negative); Hepatitis C Antibody Negative (Negative)
[2024-01-17] MEDS ORDERED: FREE WATER GT SCH (12:00)
[2024-01-17] MEDS: ENOXAPARIN SOD 80 MG/0.8ML SYRINGE SC ONE (12:54)
[2024-01-17 12:55] LABS: Base Excess 3.9 mmol/L (-2.0-3.0)
[2024-01-17 13:33] LABS: Base Excess 0.7 mmol/L (-2.0-3.0)
[2024-01-17] MEDS: DOBUTamine 1000MCG/ML 250 ML IV SCH (14:05)
[2024-01-17 18:09] LABS: Base Excess 1.7 mmol/L (-2.0-3.0)
[2024-01-17] MEDS ORDERED: ACETAMINOPHEN 650 MG RECT SUPP PR PRN (21:30)
[2024-01-18] VITALS (90 sets, daily range): BP systolic 84–132; BP diastolic 51–78; PULSE 107–122; RESP 10–48; TEMP 97.9–100.1; O2SAT 92–99
[2024-01-18 00:04] LABS: Lactic Acid w/Reflex 2.4 mmol/L (0.4-2.0)
[2024-01-18 05:57] LABS: Hematocrit 44.9 % (41.0-53.0); Hemoglobin 14.8 g/dL (13.5-17.5); Mean Corpuscular Hemoglobin 36.8 pg (28.0-32.0); Mean Corpuscular Hgb Conc. 32.9 g/dL (32.0-36.0); Mean Corpuscular Volume 111.7 fL (80.0-100.0); Platelet Count (auto) 269 10^3/uL (140-450); Red Blood Cells 4.02 10^6/uL (4.5-5.90); Red Cell Distribution Width 13.6 % (11.8-14.3); White Blood Cell 13.1 10^3/uL (4.4-10.8)
[2024-01-18 06:01] LABS: Basophils % (manual) 0 (0.0-2.0); Blast Cells 0; Eosinophils % (manual) 0 (0-7); Promyelocytes % 0; Reactive Lymphocytes 0
[2024-01-18 07:18] LABS: Band Neutrophils % (manual) 34; Lymphocytes % (manual) 16 (10.0-50.0); Metamyelocytes % 1; Monocytes % (manual) 6 (0-12); Myelocytes % 2; Platelet Estimate Adequate
[2024-01-18 07:18] LABS: Base Excess -0.5 mmol/L (-2.0-3.0)
[2024-01-18] MEDS: ENOXAPARIN SOD 80 MG/0.8ML SYRINGE SC SCH (10:33)
[2024-01-18 10:35] LABS: Anion Gap 14 (5-15); Carbon Dioxide 24 mmol/L (20-31); Chloride 116 mmol/L (98-107); Potassium 3.9 mmol/L (3.5-5.1); Sodium 154 mmol/L (136-145)
[2024-01-18 10:36] LABS: Calcium 9.2 mg/dL (8.7-10.4)
[2024-01-18 10:41] LABS: BUN/Creatinine Ratio 19.9 (10.0-20.0); Glucose 265 mg/dL (74-106); Magnesium 2.3 mg/dL (1.6-2.6)
[2024-01-18 10:50] LABS: Blood Urea Nitrogen 72 mg/dL (9-23)
[2024-01-18] MEDS: SOD CHL 0.45% 1,000 ML IV SCH (12:45)
[2024-01-19] VITALS (103 sets, daily range): BP systolic 98–157; BP diastolic 56–99; PULSE 93–115; RESP 10–37; TEMP 97.5–98.8; O2SAT 89–100
[2024-01-19 05:06] LABS: Basophils # (auto) 0 10 ^3/uL (0-0.2); Eosinophils # (auto) 0 10 ^3/uL (0-0.8); Monocytes # (auto) 0.3 10 ^3/uL (0-1.3); Neutrophils # (auto) 10.7 10 ^3/uL (1.6-8.6); White Blood Cell 12.4 10^3/uL (4.4-10.8)
[2024-01-19 05:10] LABS: Basophils % (auto) 0.1 % (0.0-2.0); Eosinophils % (auto) 0.3 % (0.0-7.0); Hematocrit 40.1 % (41.0-53.0); Hemoglobin 13.7 g/dL (13.5-17.5); Lymphocytes # (auto) 1.3 10 ^3/uL (0.4-5.4); Lymphocytes % (auto) 10.7 % (10.0-50.0); Mean Corpuscular Hemoglobin 36.6 pg (28.0-32.0); Mean Corpuscular Hgb Conc. 34.2 g/dL (32.0-36.0); Monocytes % (auto) 2.5 % (0.0-12.0); Neutrophils % (auto) 86.4 % (37.0-80.0); Nucleated Red Blood Cells % 0.1 %; Platelet Count (auto) 277 10^3/uL (140-450); Red Blood Cells 3.75 10^6/uL (4.5-5.90); Red Cell Distribution Width 13.3 % (11.8-14.3)
[2024-01-19 05:34] LABS: Alanine Aminotransferase 54 U/L (7-40); Albumin 3.1 g/dL (3.2-4.8); Alkaline Phosphatase 89 U/L (46-116); Anion Gap 12 (5-15); Aspartate Aminotransferase 60 U/L (13-40); BUN/Creatinine Ratio 21.6 (10.0-20.0); Calcium 8.5 mg/dL (8.7-10.4); Carbon Dioxide 25 mmol/L (20-31); Chloride 117 mmol/L (98-107); Magnesium 2.4 mg/dL (1.6-2.6); Potassium 3.2 mmol/L (3.5-5.1); Sodium 154 mmol/L (136-145)
[2024-01-19 05:35] LABS: Bilirubin, Total 0.8 mg/dL (0.2-1.0); Total Protein 6.2 g/dL (5.7-8.2)
[2024-01-19 05:45] LABS: Glucose 149 mg/dL (74-106)
[2024-01-19 05:46] LABS: Blood Urea Nitrogen 83 mg/dL (9-23)
[2024-01-19] MEDS: POTASSIUM CHL 20MEQ/100ML 100 ML IV ONE (07:04)
[2024-01-19 07:10] LABS: Base Excess 0.5 mmol/L (-2.0-3.0)
[2024-01-19] MEDS ORDERED: FUROSEMIDE 40 MG/4 ML VIAL IV SCH (10:00)
[2024-01-19] MEDS: methylPREDNISolone SOD SUCC 40 MG/ML VL IV SCH (10:24)
[2024-01-19] MEDS: SOD CHL 0.45% 1,000 ML IV SCH (11:29)
[2024-01-19] MEDS: POTASSIUM CHL 20MEQ/100ML 100 ML IV SCH (11:33)
[2024-01-19] MEDS ORDERED: CLINIMIX PER PHARMACY IV SCH (16:30)
[2024-01-19] MEDS: ACCU-CHEK COMFORT CURVE STRIP VI SCH (18:00)
[2024-01-19] MEDS: InsuLIN REG 1unit/0.01ml Soln (100units/ml) SC SCH (18:00)
[2024-01-19] MEDS: AMINO ACID INFUSION IN D10W 1,000 ML IV SCH (20:09)
[2024-01-20] VITALS (83 sets, daily range): BP systolic 105–160; BP diastolic 52–93; PULSE 88–110; RESP 10–44; TEMP 97.7–98.4; O2SAT 93–100
[2024-01-20 05:14] LABS: Alanine Aminotransferase 52 U/L (7-40); Albumin 3.2 g/dL (3.2-4.8); Alkaline Phosphatase 105 U/L (46-116); Anion Gap 11 (5-15); Aspartate Aminotransferase 76 U/L (13-40); BUN/Creatinine Ratio 27.8 (10.0-20.0); Bilirubin, Total 0.7 mg/dL (0.2-1.0); Carbon Dioxide 27 mmol/L (20-31); Chloride 117 mmol/L (98-107); Magnesium 2.4 mg/dL (1.6-2.6); Phosphorus 3.4 mg/dL (2.4-5.1); Potassium 3.3 mmol/L (3.5-5.1); Sodium 155 mmol/L (136-145); Total Protein 6.5 g/dL (5.7-8.2)
[2024-01-20 05:18] LABS: Blood Urea Nitrogen 70 mg/dL (9-23); Glucose 275 mg/dL (74-106)
[2024-01-20] MEDS: POTASSIUM CHL 20MEQ/100ML 100 ML IV ONE (06:00)
[2024-01-20 09:42] LABS: INR 1.07 (0.9-1.15); Partial Thromboplastin Time 25.6 SEC (24.5-34.5); Prothrombin Time 11.3 sec (9.3-11.8)
[2024-01-20] MEDS: POTASSIUM EFFERVESENT TAB 25 MEQ GT ONE (09:44)
[2024-01-20] MEDS: FREE WATER GT SCH (10:00)
[2024-01-20] MEDS: LIDOCAINE 1% (LOCAL ANESTH.) PF 5ml SDV ID ONE (11:42)
[2024-01-20] MEDS: LORazepam 2MG/ML-1ML VIAL IM ONE (12:00)
[2024-01-20] MEDS: LORazepam 2MG/ML-1ML VIAL ONE (12:04)
[2024-01-20] MEDS: FUROSEMIDE 20 MG/2 ML VIAL IV SCH (13:33)
[2024-01-20] MEDS: metroNIDAZOLE 500MG/100ML 100 ML IV SCH (13:34)
[2024-01-20] MEDS: SODIUM CHLOR 0.9% PF (SALINE LOCK) 10ML VIAL/SYR IV SCH (21:40)
[2024-01-21] VITALS (54 sets, daily range): BP systolic 101–129; BP diastolic 51–75; PULSE 97–111; RESP 13–45; TEMP 98.3–99.9; O2SAT 89–100
[2024-01-21 05:58] LABS: Alanine Aminotransferase 36 U/L (7-40); Albumin 2.4 g/dL (3.2-4.8); Alkaline Phosphatase 75 U/L (46-116); Anion Gap 8 (5-15); Aspartate Aminotransferase 53 U/L (13-40); BUN/Creatinine Ratio 27.5 (10.0-20.0); Bilirubin, Total 0.7 mg/dL (0.2-1.0); Calcium 6.5 mg/dL (8.7-10.4); Carbon Dioxide 21 mmol/L (20-31); Chloride 109 mmol/L (98-107); Magnesium 1.8 mg/dL (1.6-2.6); Phosphorus 1.7 mg/dL (2.4-5.1); Sodium 138 mmol/L (136-145)
[2024-01-21 06:10] LABS: Basophils # (auto) 0 10 ^3/uL (0-0.2); Basophils % (auto) 0.2 % (0.0-2.0); Eosinophils # (auto) 0 10 ^3/uL (0-0.8); Hematocrit 34.2 % (41.0-53.0); Monocytes # (auto) 0.2 10 ^3/uL (0-1.3); Nucleated Red Blood Cells % 0.1 %
[2024-01-21 06:14] LABS: Eosinophils % (auto) 0.4 % (0.0-7.0); Hemoglobin 11.1 g/dL (13.5-17.5); Lymphocytes # (auto) 0.6 10 ^3/uL (0.4-5.4); Lymphocytes % (auto) 7.5 % (10.0-50.0); Mean Corpuscular Hgb Conc. 32.5 g/dL (32.0-36.0); Mean Corpuscular Volume 110.5 fL (80.0-100.0); Monocytes % (auto) 2.5 % (0.0-12.0); Neutrophils # (auto) 7.7 10 ^3/uL (1.6-8.6); Neutrophils % (auto) 89.4 % (37.0-80.0); Platelet Count (auto) 244 10^3/uL (140-450); Red Cell Distribution Width 13.6 % (11.8-14.3); White Blood Cell 8.7 10^3/uL (4.4-10.8)
[2024-01-21 06:29] LABS: Blood Urea Nitrogen 44 mg/dL (9-23)
[2024-01-21 06:30] LABS: Glucose 579 mg/dL (74-106); Potassium 2.4 mmol/L (3.5-5.1)
[2024-01-21] MEDS: POTASSIUM CHL 20MEQ/100ML 100 ML IV SCH (07:15)
[2024-01-21] MEDS: POTASSIUM PHOSPHATE 44 MEQ in D5W 5% 250 ML IV ONE (09:45)
[2024-01-21] MEDS: PIPERACILLIN-TAZOB 3.375GM 100 ML IV SCH (17:48)
[2024-01-22] VITALS (69 sets, daily range): BP systolic 95–153; BP diastolic 55–86; PULSE 92–149; RESP 12–38; TEMP 98.4–99.6; O2SAT 88–100
[2024-01-22 05:02] LABS: Basophils # (auto) 0 10 ^3/uL (0-0.2); Basophils % (auto) 0.1 % (0.0-2.0); Eosinophils # (auto) 0 10 ^3/uL (0-0.8); Eosinophils % (auto) 0.1 % (0.0-7.0); Hematocrit 40.2 % (41.0-53.0); Hemoglobin 13.7 g/dL (13.5-17.5); Lymphocytes % (auto) 10.4 % (10.0-50.0); Mean Corpuscular Hemoglobin 36.7 pg (28.0-32.0); Mean Corpuscular Hgb Conc. 34.2 g/dL (32.0-36.0); Mean Corpuscular Volume 107.2 fL (80.0-100.0); Monocytes # (auto) 0.3 10 ^3/uL (0-1.3); Monocytes % (auto) 3.4 % (0.0-12.0); Neutrophils # (auto) 8.6 10 ^3/uL (1.6-8.6); Nucleated Red Blood Cells % 0.1 %; Platelet Count (auto) 310 10^3/uL (140-450); Red Blood Cells 3.75 10^6/uL (4.5-5.90); Red Cell Distribution Width 13.2 % (11.8-14.3)
[2024-01-22 05:16] LABS: Alanine Aminotransferase 44 U/L (7-40); Albumin 3.1 g/dL (3.2-4.8); Alkaline Phosphatase 93 U/L (46-116); Anion Gap 9 (5-15); Aspartate Aminotransferase 76 U/L (13-40); BUN/Creatinine Ratio 22.5 (10.0-20.0); Bilirubin, Total 1.1 mg/dL (0.2-1.0); Blood Urea Nitrogen 40 mg/dL (9-23); Calcium 8.3 mg/dL (8.7-10.4); Carbon Dioxide 26 mmol/L (20-31); Magnesium 2.1 mg/dL (1.6-2.6); Phosphorus 2.8 mg/dL (2.4-5.1); Potassium 3.1 mmol/L (3.5-5.1); Total Protein 6.3 g/dL (5.7-8.2)
[2024-01-22 05:27] LABS: Chloride 121 mmol/L (98-107); Glucose 108 mg/dL (74-106); Sodium 156 mmol/L (136-145)
[2024-01-22] MEDS: POTASSIUM CHL 20MEQ/100ML 100 ML IV ONE ×3 (06:20→13:15)
[2024-01-22 08:06] LABS: Cancer Antigen (CA) 125 65.2 U/mL (Not Estab.); Carbohydrate Antigen 19-9 64 U/mL (0-35); Immunoglobulin A 312 mg/dL (61-437); Immunoglobulin G, Serum 1143 mg/dL (603-1613); Immunoglobulin M 70 mg/dL (15-143)
[2024-01-22 08:18] LABS: Base Excess 0.1 mmol/L (-2.0-3.0)
[2024-01-22] MEDS: D5W 5% 1,000 ML IV SCH ×2 (13:16→17:15)
[2024-01-22] MEDS: SULFAMETH TRIMETH IV SCH (14:10)
[2024-01-22] MEDS: D5W 5% IV SCH (14:10)
[2024-01-23] VITALS (56 sets, daily range): BP systolic 104–139; BP diastolic 49–82; PULSE 87–105; RESP 11–27; TEMP 98–98.9; O2SAT 94–100
[2024-01-23 04:06] LABS: CA 27.29 21.1 U/mL (0.0-38.6)
[2024-01-23 05:08] LABS: Albumin 1.8 g/dL (2.9-4.4); Alpha-1-Globulin 0.5 g/dL (0.0-0.4); Alpha-2-Globulin 1.2 g/dL (0.4-1.0); Gamma Globulin 1.1 g/dL (0.4-1.8); Globulin Total 3.8 g/dL (2.2-3.9); Protein Total Serum 5.6 g/dL (6.0-8.5)
[2024-01-23 05:12] LABS: Basophils # (auto) 0 10 ^3/uL (0-0.2); Basophils % (auto) 0.3 % (0.0-2.0); Eosinophils # (auto) 0 10 ^3/uL (0-0.8); Eosinophils % (auto) 0.2 % (0.0-7.0); Hematocrit 38.8 % (41.0-53.0); Hemoglobin 13.3 g/dL (13.5-17.5); Lymphocytes # (auto) 0.7 10 ^3/uL (0.4-5.4); Lymphocytes % (auto) 7.4 % (10.0-50.0); Mean Corpuscular Hemoglobin 36.8 pg (28.0-32.0); Mean Corpuscular Hgb Conc. 34.3 g/dL (32.0-36.0); Mean Corpuscular Volume 107.2 fL (80.0-100.0); Monocytes # (auto) 0.3 10 ^3/uL (0-1.3); Monocytes % (auto) 3.2 % (0.0-12.0); Neutrophils # (auto) 8.7 10 ^3/uL (1.6-8.6); Neutrophils % (auto) 88.9 % (37.0-80.0); Platelet Count (auto) 299 10^3/uL (140-450); Red Blood Cells 3.62 10^6/uL (4.5-5.90); Red Cell Distribution Width 13.2 % (11.8-14.3); White Blood Cell 9.8 10^3/uL (4.4-10.8)
[2024-01-23 05:29] LABS: Alanine Aminotransferase 42 U/L (7-40); Albumin 2.9 g/dL (3.2-4.8); Alkaline Phosphatase 89 U/L (46-116); Anion Gap 10 (5-15); Aspartate Aminotransferase 73 U/L (13-40); BUN/Creatinine Ratio 18.5 (10.0-20.0); Bilirubin, Total 0.6 mg/dL (0.2-1.0); Blood Urea Nitrogen 32 mg/dL (9-23); Calcium 8.4 mg/dL (8.7-10.4); Carbon Dioxide 25 mmol/L (20-31); Chloride 119 mmol/L (98-107); Magnesium 1.9 mg/dL (1.6-2.6); Potassium 3.3 mmol/L (3.5-5.1); Sodium 154 mmol/L (136-145); Total Protein 5.9 g/dL (5.7-8.2)
[2024-01-23 05:31] LABS: Glucose 264 mg/dL (74-106)
[2024-01-23] MEDS: POTASSIUM CHL 20MEQ/100ML 100 ML IV ONE (08:13)
[2024-01-23] MEDS: D5W 5% 1,000 ML IV SCH (14:25)
[2024-01-24] VITALS (71 sets, daily range): BP systolic 93–133; BP diastolic 45–92; PULSE 88–111; RESP 11–40; TEMP 97.3–98.8; O2SAT 22–100
[2024-01-24 05:17] LABS: Basophils # (auto) 0 10 ^3/uL (0-0.2); Eosinophils # (auto) 0.1 10 ^3/uL (0-0.8); Lymphocytes % (auto) 6.8 % (10.0-50.0); Monocytes # (auto) 0.3 10 ^3/uL (0-1.3); Neutrophils % (auto) 89.1 % (37.0-80.0); Nucleated Red Blood Cells % 0.1 %
[2024-01-24 05:20] LABS: Basophils % (auto) 0.2 % (0.0-2.0); Hematocrit 34.8 % (41.0-53.0); Hemoglobin 12.1 g/dL (13.5-17.5); Lymphocytes # (auto) 0.7 10 ^3/uL (0.4-5.4); Mean Corpuscular Hgb Conc. 34.7 g/dL (32.0-36.0); Mean Corpuscular Volume 106.6 fL (80.0-100.0); Monocytes % (auto) 2.9 % (0.0-12.0); Neutrophils # (auto) 8.6 10 ^3/uL (1.6-8.6); Platelet Count (auto) 273 10^3/uL (140-450); Red Blood Cells 3.26 10^6/uL (4.5-5.90); Red Cell Distribution Width 12.8 % (11.8-14.3); White Blood Cell 9.6 10^3/uL (4.4-10.8)
[2024-01-24 05:30] LABS: Alanine Aminotransferase 35 U/L (7-40); Albumin 2.7 g/dL (3.2-4.8); Alkaline Phosphatase 83 U/L (46-116); Anion Gap 6 (5-15); Aspartate Aminotransferase 55 U/L (13-40); BUN/Creatinine Ratio 15.4 (10.0-20.0); Blood Urea Nitrogen 24 mg/dL (9-23); Calcium 8.3 mg/dL (8.7-10.4); Carbon Dioxide 24 mmol/L (20-31); Chloride 112 mmol/L (98-107); Glucose 253 mg/dL (74-106); Magnesium 1.7 mg/dL (1.6-2.6); Potassium 3.4 mmol/L (3.5-5.1); Sodium 142 mmol/L (136-145)
[2024-01-24 05:31] LABS: Bilirubin, Total 0.3 mg/dL (0.2-1.0); Total Protein 5.5 g/dL (5.7-8.2)
[2024-01-24] MEDS: POTASSIUM CHL 20MEQ/100ML 100 ML IV ONE (11:14)
[2024-01-25] VITALS (40 sets, daily range): BP systolic 100–128; BP diastolic 51–105; PULSE 85–109; RESP 12–29; TEMP 98–99; O2SAT 87–100
[2024-01-25 05:10] LABS: Basophils # (auto) 0 10 ^3/uL (0-0.2); Basophils % (auto) 0.1 % (0.0-2.0); Eosinophils # (auto) 0.1 10 ^3/uL (0-0.8); Eosinophils % (auto) 0.8 % (0.0-7.0); Lymphocytes # (auto) 0.9 10 ^3/uL (0.4-5.4); Lymphocytes % (auto) 9.6 % (10.0-50.0); Monocytes # (auto) 0.4 10 ^3/uL (0-1.3); Monocytes % (auto) 4.4 % (0.0-12.0); Neutrophils % (auto) 85.1 % (37.0-80.0); White Blood Cell 9.4 10^3/uL (4.4-10.8)
[2024-01-25 05:14] LABS: Hematocrit 33.1 % (41.0-53.0); Hemoglobin 11.6 g/dL (13.5-17.5); Mean Corpuscular Hemoglobin 36.9 pg (28.0-32.0); Mean Corpuscular Volume 105.5 fL (80.0-100.0); Platelet Count (auto) 246 10^3/uL (140-450); Red Blood Cells 3.14 10^6/uL (4.5-5.90); Red Cell Distribution Width 13.2 % (11.8-14.3)
[2024-01-25 05:33] LABS: Alanine Aminotransferase 33 U/L (7-40); Albumin 2.6 g/dL (3.2-4.8); Alkaline Phosphatase 76 U/L (46-116); Anion Gap 8 (5-15); Aspartate Aminotransferase 56 U/L (13-40); Blood Urea Nitrogen 21 mg/dL (9-23); Calcium 7.9 mg/dL (8.7-10.4); Carbon Dioxide 24 mmol/L (20-31); Chloride 110 mmol/L (98-107); Magnesium 1.7 mg/dL (1.6-2.6); Potassium 3.6 mmol/L (3.5-5.1); Sodium 142 mmol/L (136-145)
[2024-01-25 05:34] LABS: Bilirubin, Total 0.4 mg/dL (0.2-1.0); Glucose 150 mg/dL (74-106); Phosphorus 3.7 mg/dL (2.4-5.1); Total Protein 5.4 g/dL (5.7-8.2)
[2024-01-25] MEDS ORDERED: Glucerna 1.2 Cal 1Liter BOTTLE GT SCH (11:00)
[2024-01-26] VITALS (19 sets, daily range): BP systolic 101–131; BP diastolic 52–78; PULSE 88–107; RESP 17–24; TEMP 97.4–99.3; O2SAT 90–98
[2024-01-26 05:21] LABS: Basophils # (auto) 0 10 ^3/uL (0-0.2); Hemoglobin 11.8 g/dL (13.5-17.5); Monocytes # (auto) 0.6 10 ^3/uL (0-1.3); Neutrophils # (auto) 9.5 10 ^3/uL (1.6-8.6); White Blood Cell 11.1 10^3/uL (4.4-10.8)
[2024-01-26 05:23] LABS: Basophils % (auto) 0.2 % (0.0-2.0); Eosinophils # (auto) 0.1 10 ^3/uL (0-0.8); Eosinophils % (auto) 0.5 % (0.0-7.0); Hematocrit 33.7 % (41.0-53.0); Lymphocytes # (auto) 0.9 10 ^3/uL (0.4-5.4); Lymphocytes % (auto) 8.4 % (10.0-50.0); Mean Corpuscular Hemoglobin 36.8 pg (28.0-32.0); Mean Corpuscular Hgb Conc. 34.9 g/dL (32.0-36.0); Mean Corpuscular Volume 105.5 fL (80.0-100.0); Monocytes % (auto) 5.1 % (0.0-12.0); Neutrophils % (auto) 85.8 % (37.0-80.0); Platelet Count (auto) 287 10^3/uL (140-450); Red Blood Cells 3.19 10^6/uL (4.5-5.90); Red Cell Distribution Width 13.2 % (11.8-14.3)
[2024-01-26 05:41] LABS: Alanine Aminotransferase 34 U/L (7-40); Albumin 2.7 g/dL (3.2-4.8); Alkaline Phosphatase 84 U/L (46-116); Anion Gap 6 (5-15); Aspartate Aminotransferase 53 U/L (13-40); BUN/Creatinine Ratio 14.2 (10.0-20.0); Blood Urea Nitrogen 22 mg/dL (9-23); Calcium 8.2 mg/dL (8.7-10.4); Carbon Dioxide 26 mmol/L (20-31); Chloride 108 mmol/L (98-107); Glucose 164 mg/dL (74-106); Magnesium 1.7 mg/dL (1.6-2.6); Potassium 3.7 mmol/L (3.5-5.1); Sodium 140 mmol/L (136-145)
[2024-01-26 05:42] LABS: Bilirubin, Total 0.4 mg/dL (0.2-1.0); Phosphorus 3.9 mg/dL (2.4-5.1); Total Protein 5.7 g/dL (5.7-8.2)
[2024-01-26] MEDS: ENOXAPARIN SOD 80 MG/0.8ML SYRINGE SC SCH (22:24)
[2024-01-27] VITALS (19 sets, daily range): BP systolic 110–131; BP diastolic 55–76; PULSE 95–115; RESP 16–30; TEMP 97.9–98.7; O2SAT 90–99
[2024-01-27] MEDS: predniSONE 5 MG TAB PO SCH (08:44)
[2024-01-27] MEDS: FUROSEMIDE 40 MG/4 ML VIAL IV ONE (13:58)
[2024-01-28] VITALS (13 sets, daily range): BP systolic 113–133; BP diastolic 64–74; PULSE 99–109; RESP 18–21; TEMP 98.1–99.8; O2SAT 91–98
[2024-01-28 06:39] LABS: Anion Gap 3 (5-15); Calcium 8.2 mg/dL (8.7-10.4); Carbon Dioxide 28 mmol/L (20-31); Chloride 107 mmol/L (98-107); Potassium 4.1 mmol/L (3.5-5.1); Sodium 138 mmol/L (136-145)
[2024-01-28 06:44] LABS: Glucose 195 mg/dL (74-106)
[2024-01-28 06:45] LABS: BUN/Creatinine Ratio 13.2 (10.0-20.0); Blood Urea Nitrogen 20 mg/dL (9-23)
[2024-01-28] MEDS: FUROSEMIDE 40 MG/4 ML VIAL IV SCH (09:56)
[2024-01-29] VITALS (16 sets, daily range): BP systolic 115–130; BP diastolic 62–79; PULSE 94–102; RESP 17–21; TEMP 97–98.8; O2SAT 92–100
[2024-01-29] MEDS: DEXTROSE (50%) 50ML SYRG IV SCH (18:41)
[2024-01-30] VITALS (17 sets, daily range): BP systolic 116–127; BP diastolic 57–77; PULSE 91–107; RESP 16–20; TEMP 98–98.6; O2SAT 91–100
[2024-01-30 07:01] LABS: Basophils # (auto) 0 10 ^3/uL (0-0.2); Eosinophils # (auto) 0.2 10 ^3/uL (0-0.8); Hemoglobin 11.5 g/dL (13.5-17.5); Monocytes # (auto) 0.5 10 ^3/uL (0-1.3); Neutrophils # (auto) 5.7 10 ^3/uL (1.6-8.6); Platelet Count (auto) 364 10^3/uL (140-450); Red Cell Distribution Width 13.3 % (11.8-14.3)
[2024-01-30 07:03] LABS: Chloride 103 mmol/L (98-107); Potassium 4.3 mmol/L (3.5-5.1); Sodium 136 mmol/L (136-145)
[2024-01-30 07:04] LABS: Anion Gap 3 (5-15); Basophils % (auto) 0.3 % (0.0-2.0); Calcium 8.3 mg/dL (8.7-10.4); Carbon Dioxide 30 mmol/L (20-31); Eosinophils % (auto) 2.1 % (0.0-7.0); Hematocrit 33.8 % (41.0-53.0); Lymphocytes # (auto) 1.3 10 ^3/uL (0.4-5.4); Lymphocytes % (auto) 16.5 % (10.0-50.0); Monocytes % (auto) 6.5 % (0.0-12.0); Neutrophils % (auto) 74.6 % (37.0-80.0); Nucleated Red Blood Cells % 0.1 %; Red Blood Cells 3.19 10^6/uL (4.5-5.90); White Blood Cell 7.6 10^3/uL (4.4-10.8)
[2024-01-30 07:09] LABS: Glucose 139 mg/dL (74-106)
[2024-01-30 07:10] LABS: BUN/Creatinine Ratio 11.8 (10.0-20.0); Blood Urea Nitrogen 16 mg/dL (9-23)
[2024-01-31] VITALS (17 sets, daily range): BP systolic 112–124; BP diastolic 55–95; PULSE 94–105; RESP 16–20; TEMP 97.3–98.8; O2SAT 92–100
[2024-01-31 07:43] LABS: Alanine Aminotransferase 21 U/L (7-40); Albumin 3.2 g/dL (3.2-4.8); Alkaline Phosphatase 81 U/L (46-116); Anion Gap 5 (5-15); Aspartate Aminotransferase 25 U/L (13-40); BUN/Creatinine Ratio 12.2 (10.0-20.0); Bilirubin, Total 0.4 mg/dL (0.2-1.0); Blood Urea Nitrogen 18 mg/dL (9-23); Calcium 8.4 mg/dL (8.7-10.4); Carbon Dioxide 31 mmol/L (20-31); Chloride 97 mmol/L (98-107); Glucose 238 mg/dL (74-106); Potassium 4.3 mmol/L (3.5-5.1); Sodium 133 mmol/L (136-145)
[2024-01-31 07:44] LABS: Total Protein 6.5 g/dL (5.7-8.2)
[2024-01-31] MEDS ORDERED: SULFAMETHOX W/TRIMETH(800/160MG) DS TAB PO SCH (22:00)
[2024-02-01] MEDS ORDERED: PANTOPRAZOLE 40 MG TAB PO SCH (06:00)
[2024-02-01] MEDS ORDERED: FUROSEMIDE 20 MG TAB PO SCH (10:00)
== END 2024-01-31 19:00 | DRG 720 ==
LOC: ER 10:53 → EDBD 10:53 → TELE 15:08 → TELE-WESTW 01-07 20:45 → ICU WEST 01-12 06:55 → TELE-WESTW 01-13 22:35 → DOU IN ICU 01-17 15:17 → TELE-EAST 01-25 21:00 → TELE-CENTR 01-27 20:32
PROVIDERS: ADMIT Internal Medicine; ATTEND Internal Medicine
PROC: 5A09457 Assistance with Respiratory Ventilation, 24-96 Consecutive Hours, Continuous Positive Airway Pressure (ICD-10-PCS; 2024-01-17)
PROC: 5A09357 Assistance with Respiratory Ventilation, Less than 24 Consecutive Hours, Continuous Positive Airway Pressure (ICD-10-PCS; 2024-01-18)
PROC: 5A09357 Assistance with Respiratory Ventilation, Less than 24 Consecutive Hours, Continuous Positive Airway Pressure (ICD-10-PCS; 2024-01-19)
PROC: 5A0935A Assistance with Respiratory Ventilation, Less than 24 Consecutive Hours, High Flow/Velocity Cannula (ICD-10-PCS; 2024-01-19)
PROC: 02HV33Z Insertion of Infusion Device into Superior Vena Cava, Percutaneous Approach (ICD-10-PCS; principal; 2024-01-20)
PROC: B548ZZA Ultrasonography of Superior Vena Cava, Guidance (ICD-10-PCS; 2024-01-20)
PROC: 5A09357 Assistance with Respiratory Ventilation, Less than 24 Consecutive Hours, Continuous Positive Airway Pressure (ICD-10-PCS; 2024-01-20)
DX: A41.9 Sepsis, unspecified organism (principal); J96.01 Acute respiratory failure with hypoxia; N17.0 Acute kidney failure with tubular necrosis; J69.0 Pneumonitis due to inhalation of food and vomit; G92.8 Other toxic encephalopathy; I50.43 Acute on chronic combined systolic (congestive) and diastolic (congestive) heart failure; I21.A1 Myocardial infarction type 2; E11.10 Type 2 diabetes mellitus with ketoacidosis without coma; Z66 Do not resuscitate; Z20.822 Contact with and (suspected) exposure to COVID-19; I11.0 Hypertensive heart disease with heart failure; E11.42 Type 2 diabetes mellitus with diabetic polyneuropathy; E87.0 Hyperosmolality and hypernatremia; E78.00 Pure hypercholesterolemia, unspecified; E86.9 Volume depletion, unspecified; E87.4 Mixed disorder of acid-base balance; E87.6 Hypokalemia; I49.1 Atrial premature depolarization; N40.0 Benign prostatic hyperplasia without lower urinary tract symptoms; F03.90 Unspecified dementia, unspecified severity, without behavioral disturbance, psychotic disturbance, mood disturbance, and anxiety; F10.20 Alcohol dependence, uncomplicated; I48.91 Unspecified atrial fibrillation; R74.01 Elevation of levels of liver transaminase levels; J18.9 Pneumonia, unspecified organism; E83.39 Other disorders of phosphorus metabolism; F12.90 Cannabis use, unspecified, uncomplicated; N18.32 Chronic kidney disease, stage 3b; I47.19 Other supraventricular tachycardia; R13.10 Dysphagia, unspecified; Z85.46 Personal history of malignant neoplasm of prostate; Z79.4 Long term (current) use of insulin; Z79.84 Long term (current) use of oral hypoglycemic drugs; Z83.3 Family history of diabetes mellitus; Z79.899 Other long term (current) drug therapy; Y90.9 Presence of alcohol in blood, level not specified
CPT/HCPCS: 31720; 36415; 36569; 36600; 70450; 71045; 74018; 74176; 76705; 76775; 76937; 80048; 80053; 80061; 80307; 81001; 82140; 82270; 82570; 82607; 82728; 82746; 82784; 82805; 82947; 82962; 83036; 83521; 83605; 83735; 83880; 83935; 84100; 84132; 84155; 84156; 84165; 84300; 84439; 84443; 84481; 84484; 85007; 85025; 85027; 85379; 85610; 85730; 86038; 86300; 86301; 86304; 86334; 86704; 86706; 86708; 86803; 87040; 87070; 87077; 87081; 87086; 87186; 87205; 87340; 87426; 87804; 92507; 92610; 93005; 93306; 93970; 94640; 94660; 94667; 94668; 97110; 97163; 97530; 99291; G0378; J1815; J2405; J2470; J2543; J3480; J3490; J7060

== ENCOUNTER 2024-02-12 14:18 | Inpatient (IN) | payer MEDICARE, OTHER ==
[~2024-02-12] VITALS: Ht 177.8 cm; Wt 67.4 kg
[~2024-02-12 14:18] MED LIST changes: +ATOR80TA PO; +AZIT-43 PO; +CARV3.1240 PO; -CEPH500C PO; +ENAL5TAB22 PO; +FURO20TA3 PO; +GABA-1250 PO; +INSREG3 SC; +INSUINJ37 SC; +IPRA0.00 IN; +LORA-655 PO; +METF-370 PO; -MUPI2OIN2 EX; +PANT40PA PO
--- NOTE | 2024-02-12 14:55 | ED.PDOC ---
SOB-HPI HPI Comments HPI: Poor Historian. pt sent from [facility], had recent blood draw, which showed K+ of 5.3, blood draw yesterday, pt having shortness of breath, patient was placed on 4 L nasal cannula by EMS. Vitals: Temp:98.7 F Heart rate: 107 RR: 16 BP:127/78 02 sat: 98% on 4 L via nc PMH: CHF, DM 2, AFIB, HLD, sepsis, hypernatremia, deep tissue sacral wound, 02 dependent, dementia, etoh use, peripheral neuropathy, anxiety, [place], kidney stones, BPH, DKA, , history of alcohol abuse, marijuana abuse, PSH: prostate, cataracts social history: denies tobacco use, medications: insulin, albuterol, allergies: NKDA REVIEW OF SYSTEMS: CONSTITUTIONAL: Denies acute: fever, diaphoresis, chills, HEAD: Denies acute: headache, photophobia Eyes: Denies acute: Double vision, vision loss, eye pain, eye discharge. EARS: Denies acute: tinnitus, hearing loss, ear discharge, ear pain, THROAT: Denies acute: sore throat, swelling, difficulty swallowing , pain with swallowing, change in voice. NECK: Denies acute: neck pain, neck swelling, stiff neck. HEART: Denies acute : chest pain, palpitations, LUNGS: Denies acute: wheezing, cough, hemoptysis ABDOMEN: Denies acute: abdominal pain, Nausea, Vomiting, diarrhea, melena , hematemesis, hematochezia SKIN: Denies acute: rash, redness, lesions, itchiness. EXTREMITIES: Denies acute: calf pain, numbness, tingling, weakness, denies pain in extremity. Denies acute: Low back pain. Neuro: Denies acute: focal neurological deficit, motor or sensory focal neurological deficit, tremors, seizure like activity, confusion, dizziness, change in mental status, loss of bowel or bladder function, cauda equina like symptoms. : Denies acute: dysuria, hematuria, flank pain, increase in urinary frequency. PSYCH: Denies acute: hallucination, suicidal ideation, homicidal ideation. PHYSICAL EXAM: General: no acute distress, awake and alert. Head: normocephalic, atraumatic. Neck: supple, trachea is midline, no swelling. Throat: Normal phonation. Eyes:, no erythema, no purulent discharge, no proptosis, no icterus. Heart: regular rate, regular rhythm, no significant murmur appreciated. Lungs: no apparent respiratory distress, No wheezing, no rhonchi, no crackles. No stridors Clear to auscultation bilaterally. Abdomen: non tender to palpation, non distended, soft, no guarding, no rebound, + bowel sounds. Patient has indwelling Cheng catheter. Neuro: Awake, Alert, , follows commands Skin: no petechia, no purpura, no cyanosis, non-pale, not jaundice. Lower extremities: --no - Pitting edema no deformity, no focal swelling, no calf TTP. Makes eye contact. moves all four extremities. Face: no apparent facial droop. Chief Complaint: Abnormal LAB's Time Seen by MD: 15:00 Primary Care Provider: UNKNOWN Reviewed notes: Medications, Allergies Information Source: Patient, Emergency Med Personnel Mode of Arrival: EMS Brought in by: EMS Past Medical History PAST MEDICAL HISTORY: DM, HTN Past Medical History (Other): see HPI Surgical History (Other): cataracts, prostate Family History Family History: Reviewed,noncontributory to illness, No family hx of Cancer, No family hx of Heart pepe, No family hx of HTN, No family hx ofKidney pepe, No family hx of Liver pepe, No family hx of Lung pepe, No family hx of Stroke, Family hx of DM Social History Smoker: Non-Smoker Alcohol: Occasionally Drugs: Marijuana Lives In: Home Was a procedure done? Was a procedure done?: No Differential Dx Differential Diagnosis: Other (DDx include ACS, unstable angina, anxiety, PE, pneumothroax, neoplasm, cardiac ischemia, COPD, asthma, CHF, pleural effusion, tobacco abuse, pneumonia, hypoxia, hypercapnia, anemia., infection/sepsis., pulmonary edema. Asthma, Cardiac tamponade, infection.) X-Ray, Labs, Meds, VS Vital Signs Date Time Temp Pulse Resp B/P (MAP) Pulse Ox O2 Delivery O2 Flow Rate FiO2 02/12/24 19:45 98.5 93 19 129/83 (98) 99 98.5 02/12/24 19:45 93 18 99 Nasal Cannula* 2 28 02/12/24 18:00 99 20 129/79 (96) 98 02/12/24 16:16 98.1 100 20 133/88 (103) 98 98.1 02/12/24 16:16 100 20 98 Nasal Cannula* 4 36 02/12/24 15:36 100 02/12/24 14:51 98.7 107 16 127/78 (94) 98 Lab Test 02/12/24 18:37 02/12/24 17:23 02/12/24 16:00 02/12/24 15:12 Range/Units Troponin I High Sensitivity 15 16 14 </=54 ng/L Blood Gas Specimen Type Arterial Blood Gas Sample Site Left radial Blood Gas Patient Temperature 37.0 Arterial Blood Date Drawn [id number] Arterial Blood pH 7.474 H 7.350-7.450 Arterial Blood Partial Pressure CO2 35.9 35.0-48.0 mmHg Arterial Blood Partial Pressure O2 163.8 H 83.0-108.0 mmHg Arterial Blood HCO3 25.8 21.0-28.0 mmol/L Arterial Blood Oxygen Saturation 99.3 H 94.0-98.0 % Arterial Blood Base Excess 2.4 -2.0-3.0 mmol/L Arterial Blood Oxyhemoglobin 98.4 H 94.0-98.0 % Arterial Blood Carboxyhemoglobin 0.3 L 0.5-1.5 % Arterial Blood Methemoglobin 0.6 0.0-1.5 % Anthony Test Yes Blood Gas Total Hemoglobin 12.60 L 13.5-17.5 g/dL Blood Gas Liter Flow 5.00 Blood Gas Modality Mask - simple Blood Gas Spontaneous Rate 20 FiO2 % 40.0 White Blood Count 6.7 4.4-10.8 10^3/uL Red Blood Count 3.60 L 4.5-5.90 10^6/uL Hemoglobin 12.7 L 13.5-17.5 g/dL Hematocrit 37.4 L 41.0-53.0 % Mean Corpuscular Volume 104.0 H 80.0-100.0 fL Mean Corpuscular Hemoglobin 35.3 H 28.0-32.0 pg Mean Corpuscular Hemoglobin Concent 33.9 32.0-36.0 g/dL Red Cell Distribution Width 13.7 11.8-14.3 % Platelet Count 359 140-450 10^3/uL Mean Platelet Volume 6.8 L 6.9-10.8 fL Neutrophils (%) (Auto) 78.5 37.0-80.0 % Lymphocytes (%) (Auto) 15.0 10.0-50.0 % Monocytes (%) (Auto) 6.2 0.0-12.0 % Eosinophils (%) (Auto) 0.1 0.0-7.0 % Basophils (%) (Auto) 0.2 0.0-2.0 % Neutrophils # (Auto) 5.3 1.6-8.6 10 ^3/uL Lymphocytes # (Auto) 1.0 0.4-5.4 10 ^3/uL Monocytes # (Auto) 0.4 0-1.3 10 ^3/uL Eosinophils # (Auto) 0 0-0.8 10 ^3/uL Basophils # (Auto) 0 0-0.2 10 ^3/uL Nucleated Red Blood Cells 0.1 % Sodium Level 132 L 136-145 mmol/L Potassium Level 4.6 3.5-5.1 mmol/L Chloride Level 100 98-107 mmol/L Carbon Dioxide Level 29 20-31 mmol/L Anion Gap 3 L 5-15 Blood Urea Nitrogen 27 H 9-23 mg/dL Creatinine 1.26 0.700-1.30 mg/dL Glomerular Filtration Rate Calc 60 >90 mL/min BUN/Creatinine Ratio 21.4 H 10.0-20.0 Serum Glucose 300 H 74-106 mg/dL Lactic Acid Level 1.2 0.4-2.0 mmol/L Calcium Level 8.5 L 8.7-10.4 mg/dL Magnesium Level 1.8 1.6-2.6 mg/dL Total Bilirubin 0.4 0.2-1.0 mg/dL Aspartate Amino Transferase (AST) 53 H 13-40 U/L Alanine Aminotransferase (ALT) 38 7-40 U/L Alkaline Phosphatase 90 46-116 U/L B-Type Natriuretic Peptide 39.91 0-100 pg/mL Total Protein 6.8 5.7-8.2 g/dL Albumin 3.2 3.2-4.8 g/dL Current Medications Medications (Trade) Dose Ordered Sig/Jessica Route Start Time Stop Time Status Last Admin Ceftriaxone Sodium 50 ml @ 100 mls/hr ONCE ONCE IV 02/12/24 17:15 02/12/24 17:44 DC 02/12/24 17:33 [facility] [id number] [place] [address] Ph: [phone] DIAGNOSTIC IMAGING Diagnostic Imaging Report : [id number] Signed PATIENT: HASEEB GOLDEN ACCT: [id number] UNIT: [id number] : 1950 LOC: ER ROOM / BED: / AGE / SEX: 73 / M ADM STATUS: REG ER SERVICE [id number] ORDERING PHYSICIAN: NANCY TORREZ DO PROCEDURE(s): CXRP - CHEST PORTABLE REASON: sob ORDER NUMBER(s): [id number], ACCESSION NUMBER(s): [id number] CHEST RADIOGRAPH Indication:sob Technique: Single frontal view of the chest was obtained Comparison: XY CHEST PORTABLE on DOS: 01/27/24, XY CHEST XRAY 1 VIEW on DOS: 01/26/24, XY CHEST XRAY 1 VIEW on DOS: 01/25/24 FINDINGS: Lines and Tubes: None Lungs: Interstitial prominence of bilateral lower lung zones. Pleura: No effusion. No pneumothorax. Cardiomediastinal contours: Unremarkable Bones: No acute osseous abnormality. IMPRESSION: Interstitial prominence bilateral lower lung zones which may be from fibrotic changes with underlying pneumonia / atelectasis not excluded. ATED BY: VIOLET HOLLOWAY DO DICTATED DATE/TIME: 02/12/24 1606 SIGNED BY: VIOLET HOLLOWAY DO SIGNED DATE/TIME: 02/12/24 160 CC: Time of 1ST Reevaluation: 21:22 Reevaluation 1ST: Improved Patient Education/Counseling: Diagnosis, Treatment Family Education/Counseling: No Family Present Comments Patient presented with the above HPI.----dyspnea--workup was initiated. patient was found with the above mentioned diagnosis. Patient was given: Patient ED course and VS have been stabilized. Patient has been reassessed in the ED and remained in a stable condition. Patient has been observed in the ED adequate length of time to insure improvement/stability. patient was admitted to the medicine team for further evaluation and treatment of their presentation. X-ray suggested possible pneumonia. Patient was given Rocephin. Patient was placed on 4 L supplemental nasal cannula. All the reports of any imaging studies that were ordered by myself were reviewed by myself. Departure 1 Departure Time of Disposition: 16:01 Impression: Primary Impression: Dyspnea Disposition: 09 ADMITTED INPATIENT Admit to: Tele Condition: Guarded Discharged With: Self Critical Care Note Critical Care Time?: No Heart Score Heart Score: Heart Score Response (Comments) Value History Moderate Suspicious 1 EKG Normal 0 Age >65 2 Risk Factors >3 or Hx ASHD 2 Troponin Normal limit 0 Total 5 I personally scribed for NANCY TORREZ DO ([email or web address]) on 02/12/24 at 14:55. Electronically submitted by Serafin Lee ([facility] [place] I personally scribed for NANCY TORREZ DO ([email or web address]) on 02/12/24 at 15:02. Electronically submitted by Serafin Lee ([facility]). I personally scribed for NANCY TORREZ DO ([email or web address]) on 02/12/24 at 16:21. Electronically submitted by Serafin Lee ([email or web address]). NANCY TORREZ DO Feb 12, 2024 14:55
--- NOTE | 2024-02-12 15:37 | ECG ---
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
[2024-02-12 15:40] LABS: Basophils # (auto) 0 10 ^3/uL (0-0.2); Basophils % (auto) 0.2 % (0.0-2.0); Eosinophils # (auto) 0 10 ^3/uL (0-0.8); Eosinophils % (auto) 0.1 % (0.0-7.0); Hematocrit 37.4 % (41.0-53.0); Hemoglobin 12.7 g/dL (13.5-17.5); Mean Corpuscular Hemoglobin 35.3 pg (28.0-32.0); Mean Corpuscular Hgb Conc. 33.9 g/dL (32.0-36.0); Monocytes # (auto) 0.4 10 ^3/uL (0-1.3); Monocytes % (auto) 6.2 % (0.0-12.0); Neutrophils # (auto) 5.3 10 ^3/uL (1.6-8.6); Neutrophils % (auto) 78.5 % (37.0-80.0); Nucleated Red Blood Cells % 0.1 %; Platelet Count (auto) 359 10^3/uL (140-450); Red Cell Distribution Width 13.7 % (11.8-14.3); White Blood Cell 6.7 10^3/uL (4.4-10.8)
[2024-02-12 15:57] LABS: Alanine Aminotransferase 38 U/L (7-40); Albumin 3.2 g/dL (3.2-4.8); Alkaline Phosphatase 90 U/L (46-116); Anion Gap 3 (5-15); Aspartate Aminotransferase 53 U/L (13-40); BUN/Creatinine Ratio 21.4 (10.0-20.0); Bilirubin, Total 0.4 mg/dL (0.2-1.0); Blood Urea Nitrogen 27 mg/dL (9-23); Calcium 8.5 mg/dL (8.7-10.4); Carbon Dioxide 29 mmol/L (20-31); Chloride 100 mmol/L (98-107); Glucose 300 mg/dL (74-106); Magnesium 1.8 mg/dL (1.6-2.6); Potassium 4.6 mmol/L (3.5-5.1); Sodium 132 mmol/L (136-145)
[2024-02-12 15:58] LABS: Total Protein 6.8 g/dL (5.7-8.2)
--- NOTE | 2024-02-12 16:08 | DVH ---
CHEST RADIOGRAPH Indication:sob Technique: Single frontal view of the chest was obtained Comparison: XY CHEST PORTABLE on DOS: 01/27/24, XY CHEST XRAY 1 VIEW on DOS: 01/26/24, XY CHEST XRAY 1 VIEW on DOS: 01/25/24 FINDINGS: Lines and Tubes: None Lungs: Interstitial prominence of bilateral lower lung zones. Pleura: No effusion. No pneumothorax. Cardiomediastinal contours: Unremarkable Bones: No acute osseous abnormality. IMPRESSION: Interstitial prominence bilateral lower lung zones which may be from fibrotic changes with underlying pneumonia / atelectasis not excluded.
[2024-02-12 16:16] VITALS: PULSE 100; RESP 20; O2SAT 98
[2024-02-12] MEDS: cefTRIAXone 1GM/50ML D5W 50 ML IV ONE (17:33)
[2024-02-12 17:45] LABS: Base Excess 2.4 mmol/L (-2.0-3.0)
[2024-02-12 19:45] VITALS: PULSE 93; RESP 18; O2SAT 99
--- NOTE | 2024-02-12 22:11 | DVHHPRES ---
History of Present Illness Resident Creating Document: ERINN MAYS RESIDENT History of Present Illness This is a 73-year-old male with PMH of CHF, diabetes mellitus, DKA, AFib, hypertension, hyperlipidemia, advanced dementia, peripheral neuropathy, anxiety, CAD, BPH and polysubstance abuse disorder presented to the ED with altered level of consciousness since morning prior to this admission. Patient came from [facility] due to abnormal level of potassium 5.3. On admission patient was on A&O times 1-2. Patient was discharged from the [facility] on 01/31/2024. Past Medical History CHF, diabetes mellitus, DKA, AFib, hypertension, hyperlipidemia, advanced dementia, peripheral neuropathy, anxiety, CAD, BPH and polysubstance abuse disorder Past Surgical History: None Family History: None Past Social History Nonsmoker, nonalcoholic and polysubstance use disorder Review of Systems Review of Systems Review of system could not be assessed as patient is not fully oriented Allergies: Coded Allergies: NO KNOWN ALLERGIES (Unverified , 11/14/22) Exam Vital Signs Vital Signs Date Time Temp Pulse Resp B/P (MAP) Pulse Ox O2 Delivery O2 Flow Rate FiO2 02/12/24 19:45 98.5 93 19 129/83 (98) 99 98.5 02/12/24 19:45 Nasal Cannula* 2 28 Exam Physical examination: General Appearance: Alert, Oriented X1, mildly distress on 4 L oxygen through nasal cannula. HEENT: Atraumatic, PERRLA, EOMI, Mucous membrane moist/pink Respiratory: Decreased breath sound bilaterally. Cardiovascular: Regular rate, Normal S1, Normal S2, No murmurs, no chest wall tenderness Abdominal: Normal bowel sounds, Soft, No tenderness, No hepatospenomegaly, No masses Extremities: No clubbing, No cyanosis, No edema, Normal pulses, No tenderness/swelling Skin: No rashes, No breakdown, No significant lesion Neuro: Normal speech, Strength at 5/5 X4 ext, Normal tone, Sensation intact. Psych/Mental Status: Mental status NL, Mood NL Labs/Xrays Labs Test 02/12/24 18:37 02/12/24 17:23 02/12/24 15:12 Range/Units Troponin I High Sensitivity 15 </=54 ng/L Blood Gas Specimen Type Arterial Blood Gas Sample Site Left radial Blood Gas Patient Temperature 37.0 Arterial Blood Date Drawn [id number] Arterial Blood pH 7.474 H 7.350-7.450 Arterial Blood Partial Pressure CO2 35.9 35.0-48.0 mmHg Arterial Blood Partial Pressure O2 163.8 H 83.0-108.0 mmHg Arterial Blood HCO3 25.8 21.0-28.0 mmol/L Arterial Blood Oxygen Saturation 99.3 H 94.0-98.0 % Arterial Blood Base Excess 2.4 -2.0-3.0 mmol/L Arterial Blood Oxyhemoglobin 98.4 H 94.0-98.0 % Arterial Blood Carboxyhemoglobin 0.3 L 0.5-1.5 % Arterial Blood Methemoglobin 0.6 0.0-1.5 % Anthony Test Yes Blood Gas Total Hemoglobin 12.60 L 13.5-17.5 g/dL Blood Gas Liter Flow 5.00 Blood Gas Modality Mask - simple Blood Gas Spontaneous Rate 20 FiO2 % 40.0 White Blood Count 6.7 4.4-10.8 10^3/uL Red Blood Count 3.60 L 4.5-5.90 10^6/uL Hemoglobin 12.7 L 13.5-17.5 g/dL Hematocrit 37.4 L 41.0-53.0 % Mean Corpuscular Volume 104.0 H 80.0-100.0 fL Mean Corpuscular Hemoglobin 35.3 H 28.0-32.0 pg Mean Corpuscular Hemoglobin Concent 33.9 32.0-36.0 g/dL Red Cell Distribution Width 13.7 11.8-14.3 % Platelet Count 359 140-450 10^3/uL Mean Platelet Volume 6.8 L 6.9-10.8 fL Neutrophils (%) (Auto) 78.5 37.0-80.0 % Lymphocytes (%) (Auto) 15.0 10.0-50.0 % Monocytes (%) (Auto) 6.2 0.0-12.0 % Eosinophils (%) (Auto) 0.1 0.0-7.0 % Basophils (%) (Auto) 0.2 0.0-2.0 % Neutrophils # (Auto) 5.3 1.6-8.6 10 ^3/uL Lymphocytes # (Auto) 1.0 0.4-5.4 10 ^3/uL Monocytes # (Auto) 0.4 0-1.3 10 ^3/uL Eosinophils # (Auto) 0 0-0.8 10 ^3/uL Basophils # (Auto) 0 0-0.2 10 ^3/uL Nucleated Red Blood Cells 0.1 % Sodium Level 132 L 136-145 mmol/L Potassium Level 4.6 3.5-5.1 mmol/L Chloride Level 100 98-107 mmol/L Carbon Dioxide Level 29 20-31 mmol/L Anion Gap 3 L 5-15 Blood Urea Nitrogen 27 H 9-23 mg/dL Creatinine 1.26 0.700-1.30 mg/dL Glomerular Filtration Rate Calc 60 >90 mL/min BUN/Creatinine Ratio 21.4 H 10.0-20.0 Serum Glucose 300 H 74-106 mg/dL Lactic Acid Level 1.2 0.4-2.0 mmol/L Calcium Level 8.5 L 8.7-10.4 mg/dL Magnesium Level 1.8 1.6-2.6 mg/dL Total Bilirubin 0.4 0.2-1.0 mg/dL Aspartate Amino Transferase (AST) 53 H 13-40 U/L Alanine Aminotransferase (ALT) 38 7-40 U/L Alkaline Phosphatase 90 46-116 U/L B-Type Natriuretic Peptide 39.91 0-100 pg/mL Total Protein 6.8 5.7-8.2 g/dL Albumin 3.2 3.2-4.8 g/dL Assessment/Plan Assessment/Plan Assessment and plan: # Acute metabolic encephalopathy likely secondary to Gram-positive/Gram-positive negative or viral pneumonia - Chest x-ray revealed interstitial prominence with underlying possible pneumonia/adnexal 6 atelectatic atelectasis could not be lower ruled out - Rapid COVID test is positive - IV ceftriaxone 1 g daily and IV azithromycin 500 mg daily - Ordered CT head without contrast to rule out intracranial pathology - Ordered swallow evaluation # Acute respiratory failure likely due to Gram-positive/Gram-negative or viral pneumonia - Patient is on 4 L oxygen with saturation 94% # Type 2 diabetes mellitus - Moderate sliding scale of insulin # Chronic systolic heart failure - Echo on 01/08/2024 revealed ejection fraction 20% - BNP is not elevated - Continue carvedilol 3.125 mg bid # Advanced dementia # Possible fungal cystitis - U/A revealed loaded budding yeast. # DVT prophylaxis - Lovenox 40 mg sc daily Goal of care could not be discussed as patient is not fully oriented Plan of treatment discussed with Dr. Plummer Plan discussed with: Patient, Other My Orders Orders - ERINN MAYS RESIDENT Procedure Category Date Status Time Admit ADMIT 02/12/24 Verified 22:07 Allergies [facility] 02/12/24 Verified 22:07 Code Status CODE 02/12/24 Verified 22:07 Sodium Chloride Lock PHA 02/13/24 Verified (Saline Lock Ns) 06:00 Oxygen Per Hour RT 02/12/24 Verified 22:07 Acetaminophen Tablet PHA 02/12/24 Verified (Tylenol Tablet) 22:15 Hydrocodone-Acet PHA 02/12/24 Verified 5/325mg Tab ([place] 22:15 Ondansetron Hcl PHA 02/12/24 Verified (Zofran) 22:15 Enoxaparin Sodium PHA 02/13/24 Verified (Lovenox) 10:00 Fall Risk Precautions [facility] 02/12/[address] 22:07 Complete Blood Count LAB 02/13/24 Verified 04:00 Comprehensive LAB 02/13/24 Verified Metabolic Panel 04:00 Pt Request For Service PT 02/12/24 Verified 22:07 Nitroglycerin [facility] 02/12/24 Verified Sublingual (Ntrostat 22:15 Morphine Sulfate PHA 02/12/24 Verified Injection 22:15 Oxygen By Nasal RT 02/12/24 Verified Cannula 22:07 Stat Ekg For Chest [facility] 02/12/24 Verified Pain 22:07 Notify Of Changes [facility] 02/12/24 Verified From Base 22:07 Securities Research Analyst For [facility] 02/12/24 Verified 24 Hours 22:07 Emergency Dysrhythmia [facility] 02/12/24 Verified Protocol 22:07 Rhythm Strips Once [facility] 02/12/24 Verified Every Shift 22:07 ERINN MAYS Feb 12, 2024 22:11
[2024-02-12] MEDS ORDERED: ONDANSETRON HCL 4 MG/2 ML VIAL IV PRN (22:15)
[2024-02-12] MEDS ORDERED: HYDROcodone-ACET 5/325MG TAB PO PRN (22:15)
[2024-02-12] MEDS ORDERED: NITROGLYCERIN 0.4 MG SL TAB SL PRN (22:15)
[2024-02-12] MEDS ORDERED: MORPHINE SULFATE INJ 2 MG/ml SYRG IV PRN (22:15)
[2024-02-12] MEDS ORDERED: DEXTROSE (50%) 50ML SYRG IV PRN (22:30)
[2024-02-12] MEDS: SODIUM CHLORIDE 0.9% 1,000 ML IV ONE (23:16)
[2024-02-13 01:47] LABS: COVID19 ANTIGEN SOFIA FIA POSITIVE (NEGATIVE); Rapid Influenza A Negative (Negative); Rapid Influenza B Negative (Negative)
[2024-02-13 02:48] LABS: Urine Bacteria FEW /hpf (None Seen); Urine Blood 3+ /uL (Negative); Urine Budding Yeast LOADED /hpf (None Seen); Urine Clarity Ex.Turbid (Clear); Urine Color Yellow (Yellow); Urine Mucus FEW (None Seen); Urine Protein, UAD 1+ (Negative); Urine Specific Gravity 1.018 (1.001-1.035); Urine Urobilinogen Normal (Negative); Urine WBC <1 /hpf (0 - 3); Urine pH 5.5 (5.0-9.0)
[2024-02-13 03:20] VITALS: PULSE 97; RESP 26; O2SAT 95
[2024-02-13] MEDS: SODIUM CHLORIDE 0.9% 1,000 ML IV SCH ×2 (03:30→09:00)
--- NOTE | 2024-02-13 04:03 | DVH ---
EXAM: CT HEAD WITHOUT CONTRAST INDICATION: Altered level of consciousness TECHNIQUE: CT of the head without intravenous contrast. Radiation Dose Information: CT Dose: CTDI volume is 60.63 mGy. Dose-length product is 971.84 mGy*cm The dose indicators for CT are the volume Computed Tomography (CT) Dose Index (CTDIvol) and the Dose Length Product (DLP), and are measured in units of mGy and mGy-cm, respectively. These indicators are not patient dose, but values generated from the CT scanner acquisition factors. The report includes radiation exposure data for exposures received during this examination. COMPARISON: CT HEAD WITHOUT CONTRAST on DOS: 01/08/24 FINDINGS: There is no evidence of acute intracranial hemorrhage, extra-axial collection, mass effect, midline s hift, herniation or hydrocephalus. The ventricles, sulci and cisterns are age appropriate. The german-white differentiation is intact. Patchy periventricular and subcortical white matter hypoattenuation is nonspecific but may be related to small vessel ischemic disease. The visualized paranasal sinuses and mastoid air cells are clear. The surrounding soft tissues and osseous structures are unremarkable. IMPRESSION: No acute intracranial abnormality.
[2024-02-13 05:14] LABS: Eosinophils # (auto) 0 10 ^3/uL (0-0.8); Eosinophils % (auto) 0.2 % (0.0-7.0); Hemoglobin 12.2 g/dL (13.5-17.5); Neutrophils # (auto) 6.7 10 ^3/uL (1.6-8.6); White Blood Cell 8.4 10^3/uL (4.4-10.8)
[2024-02-13 05:18] LABS: Basophils # (auto) 0 10 ^3/uL (0-0.2); Basophils % (auto) 0.2 % (0.0-2.0); Lymphocytes # (auto) 1.2 10 ^3/uL (0.4-5.4); Lymphocytes % (auto) 14.1 % (10.0-50.0); Mean Corpuscular Hemoglobin 34.9 pg (28.0-32.0); Mean Corpuscular Hgb Conc. 33.9 g/dL (32.0-36.0); Mean Corpuscular Volume 102.9 fL (80.0-100.0); Monocytes # (auto) 0.5 10 ^3/uL (0-1.3); Monocytes % (auto) 6.3 % (0.0-12.0); Neutrophils % (auto) 79.2 % (37.0-80.0); Nucleated Red Blood Cells % 0.1 %; Platelet Count (auto) 407 10^3/uL (140-450); Red Cell Distribution Width 13.5 % (11.8-14.3)
[2024-02-13 05:31] LABS: Alanine Aminotransferase 32 U/L (7-40); Albumin 3.4 g/dL (3.2-4.8); Alkaline Phosphatase 87 U/L (46-116); Anion Gap 4 (5-15); Aspartate Aminotransferase 44 U/L (13-40); BUN/Creatinine Ratio 20.5 (10.0-20.0); Bilirubin, Total 0.4 mg/dL (0.2-1.0); Blood Urea Nitrogen 24 mg/dL (9-23); Calcium 8.7 mg/dL (8.7-10.4); Carbon Dioxide 28 mmol/L (20-31); Chloride 101 mmol/L (98-107); Glucose 234 mg/dL (74-106); Potassium 4.5 mmol/L (3.5-5.1); Sodium 133 mmol/L (136-145); Total Protein 6.7 g/dL (5.7-8.2)
[2024-02-13] MEDS: SODIUM CHLOR 0.9% PF (SALINE LOCK) 10ML VIAL/SYR IV SCH (06:22)
[2024-02-13] MEDS: InsuLIN REG 1unit/0.01ml Soln (100units/ml) SC SCH ×2 (06:32→22:00)
[2024-02-13] MEDS: ACCU-CHEK COMFORT CURVE STRIP VI SCH (06:32)
[2024-02-13 08:33] VITALS: PULSE 102; RESP 34; O2SAT 91
[2024-02-13] MEDS ORDERED: VANCOMYCIN PER PHARMACY 0 MG IV SCH (08:45)
[2024-02-13] MEDS: CEFEPIME 1GM/ 50ML 50 ML IV ONE (09:19)
[2024-02-13] MEDS ORDERED: cefTRIAXone 1GM/50ML D5W 50 ML IV SCH (10:00)
[2024-02-13] MEDS ORDERED: hydroCHLOROthiazide 25 MG TAB PO SCH (10:00)
[2024-02-13] MEDS ORDERED: AZITHROMYCIN 500MG/ 250ML 250 ML IV SCH (10:00)
[2024-02-13] MEDS: ENOXAPARIN SOD 40 MG/0.4 ML SYRINGE SC SCH (10:33)
[2024-02-13] MEDS: VANCOMYCIN 1.5GM/300ML 300 ML IV ONE (10:33)
[2024-02-13] MEDS: CARVEDILOL 3.125 MG TAB PO SCH (10:34)
[2024-02-13] MEDS: GABAPENTIN 300 MG CAP PO SCH (10:34)
--- NOTE | 2024-02-13 11:52 | DVHPNRES ---
Progress Note Date Seen: Feb 13, 2024 Resident Creating Document: DAVID TEMPLE RESIDENT Has the PT tested + for MRSA If YES, has PT been informed?: No Medical Necessity Reason Pt with a Central, PICC or Fol: No Subjective Review of Systems This is a 73-year-old male with PMH of CHF, diabetes mellitus, DKA, AFib, hypertension, hyperlipidemia, advanced dementia, peripheral neuropathy, anxiety, CAD, BPH and polysubstance abuse disorder presented to the ED with altered level of consciousness since morning prior to this admission. Patient came from [facility] acute care due to abnormal level of potassium 5.3. On admission patient was on alert and oriented x2, patient [facility] ([facility] facility[facility] The patient was discharged on 01/31/2024. At that time the patient was treated for acute on chronic systolic heart failure and aspiration pneumonia for which the patient received IV Zosyn and then was switched to IV Bactrim due to sputum culture growing Burkholderia cepacia. At this time, the patient came due to ALOC with mild SOB. Initial chest x-ray was showing possible vascular congestion with bibasilar patchy infiltrates. A CT scan of the head without contrast was performed which came back unremarkable. Patient was admitted for further assessment and management. Patient seen and examined at bedside. Patient is lying in bed, alert and oriented in person and place but not on time. Patient seems weak, fatigued with generalized weakness. Since the patient was recently discharged from the hospital less than one month ago and was residing in a SNF facility, patient has increased risk of MRSA/Pseudomonas infection for which IV antibiotics were changed from azithromycin and ceftriaxone to vancomycin and cefepime. Normal saline also was decreased from 75 cc/hour to 50 cc/hour taking into consideration that the patient has LVEF of approximately 20%. Patient also tested positive for COVID-19 and is requiring simple mask at 3 L of oxygen saturating 96%. Blood pressure and rest of vital signs are grossly unremarkable. We ordered sputum culture and MRSA nares screen. BNP was unremarkable and trops came back negative. ROS Constitutional: Denies weight loss, fever and chills. HEENT: Denies changes in vision and hearing. Respiratory: Reports mild shortness of breath with productive cough. Cardiovascular: Denies chest discomfort or palpitations GI: Denies abdominal pain, nausea, vomiting and diarrhea. : Denies dysuria and urinary frequency. Musculoskeletal: Denies myalgias and joint pain Skin: Denies rash and pruritus. Neurological: Denies dizziness, headache, vision or hearing problems Objective vital signs Vital Sign Date Time Temp Pulse Resp B/P (MAP) Pulse Ox O2 Delivery O2 Flow Rate FiO2 02/13/24 09:00 97 30 123/82 (96) 93 02/13/24 08:33 Room Air* 0 21 02/13/24 03:20 98.7 98.7 Total Intake and Output 02/12/24 02/12/24 02/13/24 15:00 23:00 07:00 Intake Total 50 ml 450 ml Balance 50 ml 450 ml medications Current Medications Medications Dose Ordered Sig/Jessica Route Start Time Stop Time Status Last Admin Dose Admin Sodium Chloride 10 ml Q8HR IV 02/13/24 06:00 02/13/24 06:22 10 ML Acetaminophen 325 mg Q4HP PRN PO 02/12/24 22:15 Acetaminophen/ Hydrocodone Bitart 1 tab Q4HP PRN PO 02/12/24 22:15 Ondansetron HCl 4 mg Q4HP PRN IV 02/12/24 22:15 Enoxaparin Sodium 40 mg DAILY SC 02/13/24 10:00 02/13/24 10:33 40 MG Nitroglycerin 0.4 mg Q5MINP PRN SL 02/12/24 22:15 Morphine Sulfate 2 mg Q30M PRN IV 02/12/24 22:15 Diagnostic Test (Pha) 1 strip ACHS 02/13/24 07:00 02/13/24 06:32 1 STRIP Insulin Human Regular HS SC 02/13/24 22:00 Insulin Human Regular AC SC 02/13/24 07:00 02/13/24 06:32 9 UNITS Dextrose 50 ml UD PRN IV 02/12/24 22:30 Carvedilol 3.125 mg BID PO 02/13/24 10:00 Gabapentin 300 mg BID PO 02/13/24 10:00 Vancomycin HCl 0 ml @ 0 mls/hr UD IV 02/13/24 08:45 Cefepime HCl 50 ml @ 12.5 mls/hr Q12HR IV 02/13/24 22:00 Sodium Chloride 1,000 ml @ 50 mls/hr Q20H IV 02/13/24 08:45 02/13/24 09:00 50 MLS/HR Examination Physical Examination General: Patient alert and oriented in person and place but not time. Patient looks fatigue and weak, has underlying advanced dementia but is following commands. HEENT: Normocephalic, atraumatic, moist mucous membranes Respiratory/pulmonary: There are bilateral coarse sounds with a associated secretions present on both lung paulino. No wheezes at this time Cardiovascular: Normal heart sounds S1 and S2 with no associated murmurs Abdomen: Abdomen nondistended, there is no pain to palpation in any of the abdominal quadrants, no palpable masses. Extremities: There is no peripheral edema present at the lower extremities. Peripheral Pulses: 3+ Radial (R). 3+ Radial (L). 3+ Dorsalis pedis (R). 3+ Dorsalis pedis(L) Skin: No rashes or pruritus, there is no sacral edema present at this time. Neurological: Patient has underlying dementia, alert and oriented x2. Cranial nerves unable to be evaluated independently due to gen weakness. laboratory and microbiology Laboratory Tests 02/13/24 05:00 Test 02/13/24 05:00 Range/Units Serum Glucose 234 H 74-106 mg/dL Problem List/Assessment/Plan Problem List/Assessment/Plan Assessment/Plan Altered level of consciousness likely due to acute metabolic encephalopathy -ordered ammonia levels -CT scan of the head without contrast came back showing no acute intracranial abnormalities Acute hypoxic respiratory failure likely due to Covid 19 pneumonia, R/O gram +/- pneumonia -patient was recently hospitalized for aspiration pneumonia less than one month ago and is residing in a [facility] facility, which increases the risk for MRSA/Pseudomonas colonization -initial chest x-ray showed possible vascular congestion with bibasilar patchy infiltrates -start IV vancomycin -start IV cefepime -ordered sputum cultures -tested positive for COVID-19 -Monitor saturation closely SHELIL on CKD stage II -creatinine is 1.17 and BUN 24 -continue IV fluids at 50 cc/hour -monitor kidney function Acute on chronic systolic heart failure (HFrEF 20%) -currently no signs/symptoms of vascular congestion, no peripheral edema -continue carvedilol 3.125 mg b.i.d. -blood pressure has been on normal range, monitor closely -BNP is 39.91 -troponins came back negative Dyslipidemia -ordered lipid panel -start atorvastatin 40 mg q.d. Primary hypertension -currently on carvedilol 3.125 b.i.d. -monitor blood pressure closely Type 2 diabetes mellitus -last hemoglobin A1c on last visit on 12/31 was 6.5% -currently on moderate sliding scale insulin -monitor blood glucose closely BPH -start tamsulosin 0.4 mg q.d. History of advanced dementia -monitor History of coronary artery disease -currently on aspirin 81 mg q.d. -atorvastatin 40 mg q.d. DVT prophylaxis -enoxaparin 40 mg q.d. SC Goals of care discussed with the patient at bedside for >23min, FULL CODE Plan discussed with Dr. Tijerina Plan discussed with: Patient My Orders My Orders Orders - DAVID TEMPLE Procedure Category Date Status Time Vancomycin Per PHA 02/13/24 In Process Pharmacy 08:45 Cefepime 1gm/ 50ml PHA 02/13/24 In Process (Maxipime 1gm/50ml) 22:00 Sodium Chloride 0.9% PHA 02/13/24 In Process 08:45 Respiratory Culture GAYLA 02/13/24 Logged W/ Gs 08:42 Mrsa Screen GAYLA 02/13/24 Logged 08:42 Date of Service: Feb 13, 2024 Billing Provider: HÉCTOR TIJERINA MD Common Visit Codes: [id number] INP/OBS CARE(HIGH) Secondary Visit Codes: [id number] CARE PLAN 30 MINUTES DAVID TEMPLE Feb 13, 2024 11:52 HÉCTOR TIJERINA MD Feb 13, 2024 22:16
[2024-02-13 13:31] LABS: Triglycerides 106 mg/dL (< 150)
[2024-02-13 13:32] LABS: LDL Cholesterol 62 mg/dL (< 100)
[2024-02-13 13:33] LABS: Cholesterol 119 mg/dL (< 200); HDL Cholesterol 29 mg/dL (40-59)
[2024-02-13] MEDS: TAMSULOSIN HYDROCHLORIDE 0.4 MG CAP PO SCH (17:16)
[2024-02-13 21:20] VITALS: PULSE 99; RESP 24; O2SAT 96
[2024-02-13 21:45] VITALS: BP 111/78; PULSE 95; RESP 16; TEMP 98.3; O2SAT 98
[2024-02-13 21:49] VITALS: PULSE 95; RESP 16; O2SAT 98
[2024-02-13] MEDS: ATORVASTATIN 20 MG TAB PO SCH (22:00)
[2024-02-13] MEDS ORDERED: AML5T PO (22:56)
[2024-02-13] MEDS: VANCOMYCIN 750mg/150ml 150 ML IV SCH (23:11)
[2024-02-14] VITALS (8 sets, daily range): BP systolic 107–143; BP diastolic 71–96; PULSE 90–101; RESP 17–20; TEMP 97.8–99.3; O2SAT 93–98
[2024-02-14] MEDS: CEFEPIME 1GM/ 50ML 50 ML IV SCH ×2 (00:31→18:34)
[2024-02-14 07:13] LABS: Chloride 105 mmol/L (98-107); Potassium 3.9 mmol/L (3.5-5.1); Sodium 139 mmol/L (136-145)
[2024-02-14 07:14] LABS: Anion Gap 11 (5-15); Basophils # (auto) 0 10 ^3/uL (0-0.2); Basophils % (auto) 0.5 % (0.0-2.0); Carbon Dioxide 23 mmol/L (20-31); Eosinophils # (auto) 0 10 ^3/uL (0-0.8); Eosinophils % (auto) 0.1 % (0.0-7.0); Hematocrit 36.2 % (41.0-53.0); Hemoglobin 12.3 g/dL (13.5-17.5); Lymphocytes # (auto) 1.5 10 ^3/uL (0.4-5.4); Lymphocytes % (auto) 16.4 % (10.0-50.0); Mean Corpuscular Hemoglobin 34.9 pg (28.0-32.0); Mean Corpuscular Hgb Conc. 33.9 g/dL (32.0-36.0); Mean Corpuscular Volume 103.1 fL (80.0-100.0); Monocytes # (auto) 0.7 10 ^3/uL (0-1.3); Monocytes % (auto) 7.3 % (0.0-12.0); Neutrophils # (auto) 6.8 10 ^3/uL (1.6-8.6); Neutrophils % (auto) 75.7 % (37.0-80.0); Platelet Count (auto) 418 10^3/uL (140-450); Red Blood Cells 3.52 10^6/uL (4.5-5.90); Red Cell Distribution Width 13.4 % (11.8-14.3)
[2024-02-14 07:15] LABS: Calcium 8.6 mg/dL (8.7-10.4)
[2024-02-14 07:19] LABS: BUN/Creatinine Ratio 26.2 (10.0-20.0); Blood Urea Nitrogen 28 mg/dL (9-23); Glucose 155 mg/dL (74-106)
[2024-02-14] MEDS: VANCOMYCIN 750mg/150ml 150 ML IV SCH ×2 (08:53→16:30)
[2024-02-14] MEDS: ASPirin 81 mg TAB PO SCH (09:33)
[2024-02-14] MEDS ORDERED: Glucerna 1.2 Cal 1Liter BOTTLE GT SCH (10:15)
--- NOTE | 2024-02-14 10:16 | DVHPNRES ---
Progress Note Date Seen: Feb 14, 2024 Resident Creating Document: DAVID TEMPLE RESIDENT Has the PT tested + for MRSA If YES, has PT been informed?: No Medical Necessity Reason Pt with a Central, PICC or Fol: No Subjective Review of Systems This is a 73-year-old male with PMH of CHF, diabetes mellitus, DKA, AFib, hypertension, hyperlipidemia, advanced dementia, peripheral neuropathy, anxiety, CAD, BPH and polysubstance abuse disorder presented to the ED with altered level of consciousness since morning prior to this admission. Patient came from [facility] acute care due to abnormal level of potassium 5.3. On admission patient was on alert and oriented x2, patient came from [facility] acute ([facility] facility). The patient was discharged on 01/31/2024. At that time the patient was treated for acute on chronic systolic heart failure and aspiration pneumonia for which the patient received IV Zosyn and then was switched to IV Bactrim due to sputum culture growing Burkholderia cepacia. At this time, the patient came due to ALOC with mild SOB. Initial chest x-ray was showing possible vascular congestion with bibasilar patchy infiltrates. A CT scan of the head without contrast was performed which came back unremarkable. Patient was admitted for further assessment and management. Patient seen and examined at bedside. Patient is currently on 3 L of oxygen through simple mask saturating 95%. Patient failed swallow evaluation yesterday for which is currently NPO. We will consider the possibility of starting Clinimix or nasogastric tube placement for enteral nutrition. Patient has no complaints at this time, on auscultation they are still bilateral coarse sounds due to a lot of secretions on bilateral lungs. We upgraded the patient to telemetry to history of atrial ectopic tachycardia and to monitor saturations constantly. ROS Constitutional: Denies weight loss, fever and chills. HEENT: Denies changes in vision and hearing. Respiratory: Denies shortness of breath and cough Cardiovascular: Denies chest discomfort or palpitations GI: Denies abdominal pain, nausea, vomiting and diarrhea. : Denies dysuria and urinary frequency. Musculoskeletal: Denies myalgias and joint pain Skin: Denies rash and pruritus. Neurological: Denies dizziness, headache, vision or hearing problems Objective vital signs Vital Sign Date Time Temp Pulse Resp B/P (MAP) Pulse Ox O2 Delivery O2 Flow Rate FiO2 02/14/24 09:00 97.8 93 17 125/87 (100) 94 97.8 02/13/24 21:49 Nasal Cannula* 2 28 Total Intake and Output 02/13/24 02/13/24 02/14/24 15:00 23:00 07:00 Intake Total 150 ml Output Total 800 ml 250 ml Balance -800 ml -100 ml medications Current Medications Medications Dose Ordered Sig/Jessica Route Start Time Stop Time Status Last Admin Dose Admin Sodium Chloride 10 ml Q8HR IV 02/13/24 06:00 02/14/24 05:20 10 ML Acetaminophen 325 mg Q4HP PRN PO 02/12/24 22:15 Acetaminophen/ Hydrocodone Bitart 1 tab Q4HP PRN PO 02/12/24 22:15 Ondansetron HCl 4 mg Q4HP PRN IV 02/12/24 22:15 Enoxaparin Sodium 40 mg DAILY SC 02/13/24 10:00 02/13/24 10:33 40 MG Nitroglycerin 0.4 mg Q5MINP PRN SL 02/12/24 22:15 Morphine Sulfate 2 mg Q30M PRN IV 02/12/24 22:15 Diagnostic Test (Pha) 1 strip ACHS 02/13/24 07:00 02/14/24 05:42 1 STRIP Insulin Human Regular HS SC 02/13/24 22:00 Insulin Human Regular AC SC 02/13/24 07:00 02/14/24 05:43 3 UNITS Dextrose 50 ml UD PRN IV 02/12/24 22:30 Carvedilol 3.125 mg BID PO 02/13/24 10:00 Gabapentin 300 mg BID PO 02/13/24 10:00 Vancomycin HCl 0 ml @ 0 mls/hr UD IV 02/13/24 08:45 Cefepime HCl 50 ml @ 12.5 mls/hr Q12HR IV 02/13/24 22:00 02/14/24 02:40 12.5 MLS/HR Sodium Chloride 1,000 ml @ 50 mls/hr Q20H IV 02/13/24 08:45 02/13/24 09:00 50 MLS/HR Atorvastatin Calcium 40 mg HS PO 02/13/24 22:00 Tamsulosin HCl 0.4 mg QPM PO 02/13/24 18:00 Aspirin 81 mg DAILY PO 02/14/24 10:00 Vancomycin HCl 150 ml @ 150 mls/hr Q8H IV 02/14/24 17:00 Examination Physical Examination General: Patient alert and oriented in person and place but not time. Patient looks fatigue and weak, has underlying advanced dementia but is following commands. HEENT: Normocephalic, atraumatic, moist mucous membranes Respiratory/pulmonary: There are still bilateral coarse sounds with a associated secretions present on both lung paulino. No wheezes at this time Cardiovascular: Normal heart sounds S1 and S2 with no associated murmurs Abdomen: Abdomen nondistended, there is no pain to palpation in any of the abdominal quadrants, no palpable masses. Extremities: There is no peripheral edema present at the lower extremities. Peripheral Pulses: 3+ Radial (R). 3+ Radial (L). 3+ Dorsalis pedis (R). 3+ Dorsalis pedis(L) Skin: No rashes or pruritus, there is no sacral edema present at this time. Neurological: Patient has underlying dementia, alert and oriented x2. Cranial nerves unable to be evaluated independently due to gen weakness. laboratory and microbiology Laboratory Tests 02/14/24 04:40 Test 02/14/24 04:40 Range/Units Serum Glucose 155 H 74-106 mg/dL Problem List/Assessment/Plan Problem List/Assessment/Plan Assessment/Plan Altered level of consciousness likely due to acute metabolic encephalopathy -ordered ammonia levels -CT scan of the head without contrast came back showing no acute intracranial abnormalities Acute hypoxic respiratory failure likely due to Covid 19 pneumonia, R/O gram +/- pneumonia -patient was recently hospitalized for aspiration pneumonia less than one month ago and is residing in a senior care facility, which increases the risk for MRSA/Pseudomonas colonization -initial chest x-ray showed possible vascular congestion with bibasilar patchy infiltrates -continue IV vancomycin -continue IV cefepime -ordered sputum cultures -tested positive for COVID-19 -Monitor saturation closely SHELLI on CKD stage II -creatinine is 1.07 and BUN 28 -Stop IV fluids -monitor kidney function Acute on chronic systolic heart failure (HFrEF 20%) -currently no signs/symptoms of vascular congestion, no peripheral edema -continue carvedilol 3.125 mg b.i.d. -blood pressure has been on normal range, monitor closely -BNP is 39.91 -troponins came back negative Dyslipidemia -Lipid panel unremarkable -continue atorvastatin 40 mg q.d. Primary hypertension -currently on carvedilol 3.125 b.i.d. -monitor blood pressure closely Type 2 diabetes mellitus -last hemoglobin A1c on last visit on 12/31 was 6.5% -currently on moderate sliding scale insulin -monitor blood glucose closely BPH -continue tamsulosin 0.4 mg q.d. History of advanced dementia -monitor History of coronary artery disease -currently on aspirin 81 mg q.d. -atorvastatin 40 mg q.d. Nutrition -Place NG tube -Start EN glucerna at 20cc/hr and progress to 30cc/hr DVT prophylaxis -enoxaparin 40 mg q.d. SC Goals of care discussed with the patient at bedside for >23min, FULL CODE Plan discussed with Dr. Tijerina Plan discussed with: Patient My Orders My Orders Orders - DAVID TEMPLE Procedure Category Date Status Time Atorvastatin (Lipitor) PHA 02/13/24 In Process 22:00 Tamsulosin PHA 02/13/24 In Process Hydrochloride (Flomax) 18:00 Aspirin Tablet PHA 02/14/24 In Process 10:00 * Wound Consult CONS 02/14/24 Transmitted Mis Specialist ORDERS 02/14/24 Transmitted 06:40 Vancomycin PHA 02/14/24 In Process 750mg/150ml 17:00 Vancomycin,Trough LAB 02/14/24 Logged 16:00 Vancomycin Per MARBIN 02/14/24 In Process Pharmacy Protoc 17:00 Date of Service: Feb 14, 2024 Billing Provider: HÉCTOR TIJERINA MD Common Visit Codes: [id number] INP/OBS CARE(HIGH) DAVID TEMPLE RESIDENT Feb 14, 2024 10:16 HÉCTOR TIJERINA MD Feb 14, 2024 21:27
--- NOTE | 2024-02-14 12:11 | DVH ---
EXAM: XY CHEST PORTABLE CLINICAL HISTORY: NGT PLACEMENT TECHNIQUE: Single AP view of the chest WID: COMPARISON: XY CHEST PORTABLE on DOS: 02/12/24 FINDINGS: Lines and tubes: NG tube in place which descends beneath the level of the diaphragm and tip not visua lized in field of view. Chest: The heart size and pulmonary vasculature is within normal limits. No pleural effusion or pneumothorax. There are reticular opacities in the bilateral lung bases, great er on the left. The osseous structures are grossly intact. Multilevel thoracic spondylosis. IMPRESSION: NG tube in place which descends beneath the level of the diaphragm and tip not visualized in field of view.
[2024-02-14] MEDS ORDERED: CLINIMIX PER PHARMACY 0 ML IV SCH (16:00)
[2024-02-14] MEDS: InsuLIN REG 1unit/0.01ml Soln (100units/ml) SC SCH (17:55)
[2024-02-14] MEDS: ACCU-CHEK COMFORT CURVE STRIP VI SCH (17:55)
[2024-02-14] MEDS ORDERED: DEXTROSE (50%) 50ML SYRG IV SCH (18:00)
[2024-02-14] MEDS: AMINO ACID INFUSION IN D10W 1,000 ML IV SCH (21:13)
[2024-02-15] VITALS (9 sets, daily range): BP systolic 121–149; BP diastolic 68–94; PULSE 69–106; RESP 14–19; TEMP 94.4–99.1; O2SAT 94–96
[2024-02-15 06:47] LABS: Alanine Aminotransferase 34 U/L (7-40); Alkaline Phosphatase 101 U/L (46-116); Anion Gap 8 (5-15); Aspartate Aminotransferase 36 U/L (13-40); Blood Urea Nitrogen 35 mg/dL (9-23); Calcium 8.6 mg/dL (8.7-10.4); Carbon Dioxide 27 mmol/L (20-31); Chloride 105 mmol/L (98-107); Glucose 217 mg/dL (74-106); Magnesium 1.8 mg/dL (1.6-2.6); Potassium 4.1 mmol/L (3.5-5.1); Sodium 140 mmol/L (136-145)
[2024-02-15 06:48] LABS: Albumin 3.1 g/dL (3.2-4.8); Bilirubin, Total 0.5 mg/dL (0.2-1.0); Phosphorus 3.1 mg/dL (2.4-5.1); Total Protein 6.6 g/dL (5.7-8.2)
[2024-02-15 06:58] LABS: Basophils # (auto) 0 10 ^3/uL (0-0.2); Basophils % (auto) 0.3 % (0.0-2.0); Eosinophils # (auto) 0 10 ^3/uL (0-0.8); Eosinophils % (auto) 0.1 % (0.0-7.0); Hematocrit 38.6 % (41.0-53.0); Hemoglobin 13.1 g/dL (13.5-17.5); Lymphocytes # (auto) 1.4 10 ^3/uL (0.4-5.4); Lymphocytes % (auto) 15.9 % (10.0-50.0); Mean Corpuscular Hemoglobin 34.8 pg (28.0-32.0); Mean Corpuscular Hgb Conc. 33.9 g/dL (32.0-36.0); Mean Corpuscular Volume 102.7 fL (80.0-100.0); Monocytes # (auto) 0.8 10 ^3/uL (0-1.3); Monocytes % (auto) 9.5 % (0.0-12.0); Neutrophils # (auto) 6.6 10 ^3/uL (1.6-8.6); Neutrophils % (auto) 74.2 % (37.0-80.0); Platelet Count (auto) 501 10^3/uL (140-450); Red Blood Cells 3.76 10^6/uL (4.5-5.90); Red Cell Distribution Width 13.7 % (11.8-14.3); White Blood Cell 8.9 10^3/uL (4.4-10.8)
--- NOTE | 2024-02-15 10:40 | DVHPNRES ---
Progress Note Date Seen: Feb 15, 2024 Resident Creating Document: DAVID TEMPLE RESIDENT Has the PT tested + for MRSA If YES, has PT been informed?: No Medical Necessity Reason Pt with a Central, PICC or Fol: No Subjective Review of Systems This is a 73-year-old male with PMH of CHF, diabetes mellitus, DKA, AFib, hypertension, hyperlipidemia, advanced dementia, peripheral neuropathy, anxiety, CAD, BPH and polysubstance abuse disorder presented to the ED with altered level of consciousness since morning prior to this admission. Patient came from [facility] acute care due to abnormal level of potassium 5.3. On admission patient was on alert and oriented x2, patient came from [facility] (SNF facility). The patient was discharged on 01/31/2024. At that time the patient was treated for acute on chronic systolic heart failure and aspiration pneumonia for which the patient received IV Zosyn and then was switched to IV Bactrim due to sputum culture growing Burkholderia cepacia. At this time, the patient came due to ALOC with mild SOB. Initial chest x-ray was showing possible vascular congestion with bibasilar patchy infiltrates. A CT scan of the head without contrast was performed which came back unremarkable. Patient was admitted for further assessment and management. Patient seen and examined at bedside. Patient is alert and oriented in person and place but not time. The patient is currently saturating 95% on 2 L of oxygen on nasal cannula which he takes out constantly and goes to 93% on room air. Yesterday patient failed swallow evaluation and nasogastric tube was placed with the aim to start enteral nutrition and continue oral medications but the patient got slightly agitated and took it out and stated that he did not want to get it place it back. We started on IV Clinimix for nutritional purposes, we will discontinue IV fluids at this time since the patient has a history of heart failure with reduced ejection fraction. Last echocardiogram showed an LVEF of 20%. We will continue IV vancomycin and cefepime at this time, we are still pending for sputum cultures. I spoke with the sister demond via phone and explained current patient status and plan of care, the sister stated that she is the decision taker and she is willing to have PEG tube placed since her daughter is a foam machine operator and explained her how it works. GI was consulted for possible PEG tube placement, for now we will start TPN since patient is refusing NGtube. ROS Constitutional: Denies weight loss, fever and chills. HEENT: Denies changes in vision and hearing. Respiratory: Denies shortness of breath and cough Cardiovascular: Denies chest discomfort or palpitations GI: Denies abdominal pain, nausea, vomiting and diarrhea. : Denies dysuria and urinary frequency. Musculoskeletal: Denies myalgias and joint pain Skin: Denies rash and pruritus. Neurological: Denies dizziness, headache, vision or hearing problems Objective vital signs Vital Sign Date Time Temp Pulse Resp B/P (MAP) Pulse Ox O2 Delivery O2 Flow Rate FiO2 02/15/24 08:40 97.5 101 18 149/94 (112) 95 97.5 02/15/24 07:58 Nasal Cannula* 2 28 Total Intake and Output 02/14/24 02/14/24 02/15/24 15:00 23:00 07:00 Intake Total 50 ml Output Total 300 ml 550 ml Balance -250 ml -550 ml medications Current Medications Medications Dose Ordered Sig/Jessica Route Start Time Stop Time Status Last Admin Dose Admin Sodium Chloride 10 ml Q8HR IV 02/13/24 06:00 02/15/24 06:33 10 ML Acetaminophen 325 mg Q4HP PRN PO 02/12/24 22:15 Acetaminophen/ Hydrocodone Bitart 1 tab Q4HP PRN PO 02/12/24 22:15 Ondansetron HCl 4 mg Q4HP PRN IV 02/12/24 22:15 Enoxaparin Sodium 40 mg DAILY SC 02/13/24 10:00 02/14/24 12:12 40 MG Nitroglycerin 0.4 mg Q5MINP PRN SL 02/12/24 22:15 Morphine Sulfate 2 mg Q30M PRN IV 02/12/24 22:15 Carvedilol 3.125 mg BID PO 02/13/24 10:00 Gabapentin 300 mg BID PO 02/13/24 10:00 Vancomycin HCl 0 ml @ 0 mls/hr UD IV 02/13/24 08:45 Atorvastatin Calcium 40 mg HS PO 02/13/24 22:00 Tamsulosin HCl 0.4 mg QPM PO 02/13/24 18:00 Aspirin 81 mg DAILY PO 02/14/24 10:00 Enteral Nutritional Formula 1,000 ml 30ML/HR GT 02/14/24 10:15 Amino Acids 0 ml @ 0 mls/hr PER PHARMACY IV 02/14/24 16:00 Diagnostic Test (Pha) 1 strip Q6HR 02/14/24 18:00 02/15/24 06:33 1 STRIP Insulin Human Regular FOLLOW SLIDING SCALE Q6HR SC 02/14/24 18:00 02/15/24 06:32 8 UNITS Dextrose 50 ml UD IV 02/14/24 18:00 Amino Acids/ Electrolytes/ Dextrose 1,000 ml @ 41 mls/hr DAILY@2200 IV 02/14/24 22:00 02/14/24 21:13 41 MLS/HR Cefepime HCl 50 ml @ 12.5 mls/hr Q18H IV 02/14/24 18:00 02/14/24 18:34 12.5 MLS/HR Examination Physical Examination General: Patient alert and oriented in person and place but not time. Patient looks fatigue and weak, has underlying advanced dementia but is following commands. HEENT: Normocephalic, atraumatic, moist mucous membranes Respiratory/pulmonary: There are still bilateral coarse sounds with a associated secretions present on both lung paulino. No wheezes at this time Cardiovascular: Normal heart sounds S1 and S2 with no associated murmurs Abdomen: Abdomen nondistended, there is no pain to palpation in any of the abdominal quadrants, no palpable masses. Extremities: Left upper extremity is bigger in size compared to right upper extremity. There is no peripheral edema present at the lower extremities. Peripheral Pulses: 3+ Radial (R). 3+ Radial (L). 3+ Dorsalis pedis (R). 3+ Dorsalis pedis(L) Skin: No rashes or pruritus, there is no sacral edema present at this time. Neurological: Patient has underlying dementia, alert and oriented x2. Cranial nerves unable to be evaluated independently due to gen weakness. laboratory and microbiology Laboratory Tests 02/15/24 05:58 Test 02/15/24 05:58 Range/Units Serum Glucose 217 H 74-106 mg/dL Microbiology Date/Time Source Procedure Growth Status 02/14/24 05:17 Nose MRSA Screen - Final Complete Problem List/Assessment/Plan Problem List/Assessment/Plan Assessment/Plan Altered level of consciousness likely due to acute metabolic encephalopathy -ordered ammonia levels which came back on normal range -CT scan of the head without contrast came back showing no acute intracranial abnormalities Acute hypoxic respiratory failure likely due to Covid 19 pneumonia, R/O gram +/- pneumonia -patient was recently hospitalized for aspiration pneumonia less than one month ago and is residing in a snf facility, which increases the risk for MRSA/Pseudomonas colonization -initial chest x-ray showed possible vascular congestion with bibasilar patchy infiltrates -continue IV vancomycin -continue IV cefepime -ordered sputum cultures -tested positive for COVID-19 -Monitor saturation closely SHELLI on CKD stage II -creatinine is 1.25 and BUN 35 -Stop IV fluids -monitor kidney function Acute on chronic systolic heart failure (HFrEF 20%) -currently no signs/symptoms of vascular congestion, no peripheral edema -continue carvedilol 3.125 mg b.i.d. -blood pressure has been on normal range, monitor closely -BNP is 39.91 -troponins came back negative Dyslipidemia -Lipid panel unremarkable -continue atorvastatin 40 mg q.d. Primary hypertension -currently on carvedilol 3.125 b.i.d. -monitor blood pressure closely Type 2 diabetes mellitus -last hemoglobin A1c on last visit on 12/31 was 6.5% -currently on moderate sliding scale insulin -monitor blood glucose closely BPH -continue tamsulosin 0.4 mg q.d. History of advanced dementia -monitor History of coronary artery disease -currently on aspirin 81 mg q.d. -atorvastatin 40 mg q.d. Nutrition -Place NG tube but patient took it out and is refusing placing it back -Continue clinimix today -Start TPN tomorrow and waiting for possible PEG tube placement -GI on board, consulted for poss PEG ube placement DVT prophylaxis -enoxaparin 40 mg q.d. SC Most of PO medications are being hold due to patient unable to swallow and refusing NGtube. Talked with Sister involved with the decision taking and care stated that will like to get PEG tube done Goals of care discussed with the patient at bedside for >23min, FULL CODE Plan discussed with Dr. Thomas Plan discussed with: Patient, Other (spoke with sister demond via phone and explainet current patient status and plan of care, she agreed and understood) My Orders My Orders Orders - DAVID TEMPLE RESIDENT Procedure Category Date Status Time Chest Portable XY 02/14/24 Resulted 10:42 Order Specialty MARBIN 02/14/24 In Process Mattress 12:41 Cleanse Wound With MARBIN 02/14/24 In Process Wound Clean 11:47 * Dietary Consult CONS 02/14/24 Transmitted 12:48 Clinimix Per Pharmacy PHA 02/14/24 In Process 16:00 * Swallow Request ST 02/14/24 Transmitted 15:49 * Gi Dvh Verification Clerk CONS 02/14/24 Transmitted 15:49 Clinimix Per Pharmacy MARBIN 02/14/24 In Process 22:00 Glucose Blood PHA 02/14/24 In Process (Accu-Chek Comfort 18:00 Insulin R (Human) PHA 02/14/24 In Process (Insulin R) 18:00 Dextrose 50% Syringe PHA 02/14/24 In Process 18:00 Amino Acid Infusion PHA 02/14/24 In Process In D10w (Clinimix 4. 22:00 Cefepime 1gm/ 50ml PHA 02/14/24 In Process (Maxipime 1gm/50ml) 18:00 Date of Service: Feb 15, 2024 Billing Provider: ESVIN THOMAS MD Common Visit Codes: [id number] INP/OBS CARE(HIGH) DAVID TEMPLE RESIDENT Feb 15, 2024 10:40 ESVIN THOMAS MD Feb 20, 2024 07:04
--- NOTE | 2024-02-15 12:56 | DVHINCON2 ---
GI Consult Consult Note GI consult note Date of Consultation: 02/15/2024 Chief Complaint: Possible PEG tube Referring Physician: Dr. Biswas H&P: 73-year-old male admitted with shortness of breath and potassium of 5.3. Transferred from [facility] acute care Patient is COVID positive Patient is a poor historian, speaks very softly. History from chart, RN and patient No abdominal pain. No nausea or vomiting. Patient has difficulty swallowing. And has failed swallow eval, and reporting slight decrease in weight Past Medical History: CHF, DM 2, AFIB, HLD, sepsis, hypernatremia, deep tissue sacral wound, 02 dependent, dementia, etoh use, peripheral neuropathy, anxiety, [place], kidney stones, BPH, DKA, , history of alcohol abuse, marijuana abuse, Past Surgical History: prostate, cataracts Social History: NO smoking, drinking ETOH and use of illegal drugs. Family History: Noncontributory Review of Systems: Constitutional: no fever, chill, weight loss HEENT: no eye pain, no hearing loss, no oral lesion, no scleral icterus Heart: no chest pain, no chest pressure Lung: no cough, no dyspnea with exertion Abdomen: see HPI Physical exam: General: NAD, AAOX3 Chest: lung paulino clear to auscultation Heart: RRR, no murmur Abdomen: non-distended, no tenderness to palpation, +BS Labs: Test 02/15/24 05:58 Range/Units Serum Glucose 217 H 74-106 mg/dL Microbiology Date/Time Source Procedure Growth Status 02/14/24 05:17 Nose MRSA Screen - Final Complete Imaging: Assessment: Altered level of consciousness possible metabolic encephalopathy Failure to thrive CKD COVID positive Plan: Discussed with Dr. Burrows We will continue to monitor Patient is agreeing for PEG tube, waiting to discuss with family members Dr. Burrows we will continue to monitor Continue Clinimix Discussed plan with patient and RN Thank you for this consult Date of Service: Feb 15, 2024 Billing Provider: WILLIAM ESQUIVEL Common Visit Codes: CONSULT ONLY Consultation Codes: [id number] CONSULT <60MIN WILLIAM ESQUIVEL Feb 15, 2024 12:56
[2024-02-15] MEDS ORDERED: TPN PER PHARMACY 0 ML IV SCH (14:15)
[2024-02-15 15:17] LABS: INR 1.13 (0.9-1.15); Partial Thromboplastin Time 29.7 SEC (24.5-34.5); Prothrombin Time 11.9 sec (9.3-11.8)
[2024-02-15] MEDS: LIDOCAINE 1% (LOCAL ANESTH.) PF 5ml SDV ID ONE (18:05)
[2024-02-15] MEDS: SODIUM CHLOR 0.9% PF (SALINE LOCK) 10ML VIAL/SYR IV SCH (22:00)
[2024-02-16] VITALS (9 sets, daily range): BP systolic 100–145; BP diastolic 70–90; PULSE 76–97; RESP 14–18; TEMP 97.7–98.7; O2SAT 93–98
[2024-02-16 05:11] LABS: Basophils # (auto) 0 10 ^3/uL (0-0.2); Basophils % (auto) 0.3 % (0.0-2.0); Eosinophils # (auto) 0 10 ^3/uL (0-0.8); Eosinophils % (auto) 0.2 % (0.0-7.0); Hemoglobin 12.6 g/dL (13.5-17.5); Lymphocytes # (auto) 1.4 10 ^3/uL (0.4-5.4); Lymphocytes % (auto) 15.7 % (10.0-50.0); Mean Corpuscular Hemoglobin 34.4 pg (28.0-32.0); Mean Corpuscular Hgb Conc. 33.2 g/dL (32.0-36.0); Mean Corpuscular Volume 103.5 fL (80.0-100.0); Monocytes # (auto) 0.8 10 ^3/uL (0-1.3); Monocytes % (auto) 8.4 % (0.0-12.0); Neutrophils # (auto) 6.8 10 ^3/uL (1.6-8.6); Neutrophils % (auto) 75.4 % (37.0-80.0); Nucleated Red Blood Cells % 0.1 %; Platelet Count (auto) 451 10^3/uL (140-450); Red Blood Cells 3.67 10^6/uL (4.5-5.90); Red Cell Distribution Width 13.9 % (11.8-14.3); White Blood Cell 9.1 10^3/uL (4.4-10.8)
[2024-02-16 05:37] LABS: Alanine Aminotransferase 22 U/L (7-40); Albumin 3.3 g/dL (3.2-4.8); Alkaline Phosphatase 87 U/L (46-116); Anion Gap 8 (5-15); Aspartate Aminotransferase 26 U/L (13-40); BUN/Creatinine Ratio 27.5 (10.0-20.0); Bilirubin, Total 0.4 mg/dL (0.2-1.0); Blood Urea Nitrogen 30 mg/dL (9-23); Calcium 8.6 mg/dL (8.7-10.4); Carbon Dioxide 21 mmol/L (20-31); Chloride 106 mmol/L (98-107); Glucose 295 mg/dL (74-106); Magnesium 1.8 mg/dL (1.6-2.6); Phosphorus 1.7 mg/dL (2.4-5.1); Potassium 3.4 mmol/L (3.5-5.1); Sodium 135 mmol/L (136-145); Total Protein 6.8 g/dL (5.7-8.2)
[2024-02-16 05:49] LABS: Triglycerides 132 mg/dL (< 150)
[2024-02-16] MEDS: VANCOMYCIN 750mg/150ml 150 ML IV ONE (11:43)
--- NOTE | 2024-02-16 11:47 | DVHPNRES ---
Progress Note Date Seen: Feb 16, 2024 Resident Creating Document: DAVID TEMPLE RESIDENT Has the PT tested + for MRSA If YES, has PT been informed?: No Medical Necessity Reason Pt with a Central, PICC or Fol: No Subjective Review of Systems This is a 73-year-old male with PMH of CHF, diabetes mellitus, DKA, AFib, hypertension, hyperlipidemia, advanced dementia, peripheral neuropathy, anxiety, CAD, BPH and polysubstance abuse disorder presented to the ED with altered level of consciousness since morning prior to this admission. Patient came from [facility] acute care due to abnormal level of potassium 5.3. On admission patient was on alert and oriented x2, patient came from [facility] acute (SNF facility). The patient was discharged on 01/31/2024. At that time the patient was treated for acute on chronic systolic heart failure and aspiration pneumonia for which the patient received IV Zosyn and then was switched to IV Bactrim due to sputum culture growing Burkholderia cepacia. At this time, the patient came due to ALOC with mild SOB. Initial chest x-ray was showing possible vascular congestion with bibasilar patchy infiltrates. A CT scan of the head without contrast was performed which came back unremarkable. Patient was admitted for further assessment and management. Patient seen and examined at bedside. Per nurse, this morning the patient was able to swallow applesauce for which she started trying to pass oral medications with the applesauce. Yesterday swallow evaluation was performed and patient failed to past liquids and even thick liquids but was clear to pass pureed diet. Patient is still at high risk of aspiration despite has been able to swallow applesauce and since this is not going to be able to provide enough caloric nutrition, we will keep the patient on TPN until GI evaluates the possibility of PEG tube placement. Otherwise patient is hemodynamically stable with coarse sounds on bilateral lung paulino saturating 92-93% on room air. Morning labs were grossly unremarkable. ROS Constitutional: Denies weight loss, fever and chills. HEENT: Denies changes in vision and hearing. Respiratory: Denies shortness of breath and cough Cardiovascular: Denies chest discomfort or palpitations GI: Denies abdominal pain, nausea, vomiting and diarrhea. : Denies dysuria and urinary frequency. Musculoskeletal: Denies myalgias and joint pain Skin: Denies rash and pruritus. Neurological: Denies dizziness, headache, vision or hearing problems Objective vital signs Vital Sign Date Time Temp Pulse Resp B/P (MAP) Pulse Ox O2 Delivery O2 Flow Rate FiO2 02/16/24 09:49 78 145/85 02/16/24 08:55 98.5 18 97 98.5 02/16/24 07:54 Nasal Cannula* 2 28 Total Intake and Output 02/15/24 02/15/24 02/16/24 15:00 23:00 07:00 Intake Total 0 ml 0 ml 420 ml Output Total 250 ml 500 ml Balance 0 ml -250 ml -80 ml medications Current Medications Medications Dose Ordered Sig/Jessica Route Start Time Stop Time Status Last Admin Dose Admin Sodium Chloride 10 ml Q8HR IV 02/13/24 06:00 02/16/24 05:32 10 ML Acetaminophen 325 mg Q4HP PRN PO 02/12/24 22:15 Acetaminophen/ Hydrocodone Bitart 1 tab Q4HP PRN PO 02/12/24 22:15 Ondansetron HCl 4 mg Q4HP PRN IV 02/12/24 22:15 Enoxaparin Sodium 40 mg DAILY SC 02/13/24 10:00 02/16/24 09:49 40 MG Nitroglycerin 0.4 mg Q5MINP PRN SL 02/12/24 22:15 Morphine Sulfate 2 mg Q30M PRN IV 02/12/24 22:15 Carvedilol 3.125 mg BID PO 02/13/24 10:00 02/16/24 09:49 3.125 MG Gabapentin 300 mg BID PO 02/13/24 10:00 02/16/24 09:49 300 MG Vancomycin HCl 0 ml @ 0 mls/hr UD IV 02/13/24 08:45 Atorvastatin Calcium 40 mg HS PO 02/13/24 22:00 Tamsulosin HCl 0.4 mg QPM PO 02/13/24 18:00 Aspirin 81 mg DAILY PO 02/14/24 10:00 02/16/24 09:50 81 MG Enteral Nutritional Formula 1,000 ml 30ML/HR GT 02/14/24 10:15 Diagnostic Test (Pha) 1 strip Q6HR 02/14/24 18:00 02/16/24 05:32 1 STRIP Insulin Human Regular FOLLOW SLIDING SCALE Q6HR SC 02/14/24 18:00 02/16/24 05:32 12 UNITS Dextrose 50 ml UD IV 02/14/24 18:00 Amino Acids/ Electrolytes/ Dextrose 1,000 ml @ 41 mls/hr DAILY@2200 IV 02/14/24 22:00 02/16/24 21:59 02/15/24 22:00 41 MLS/HR Cefepime HCl 50 ml @ 12.5 mls/hr Q18H IV 02/14/24 18:00 02/16/24 05:32 12.5 MLS/HR Amino Acids 0 ml @ 0 mls/hr PER PHARMACY IV 02/15/24 14:15 Sodium Chloride 10 ml QSHIFT@10,22 IV 02/15/24 22:00 02/16/24 09:46 10 ML Examination Physical Examination General: Patient alert and oriented in person and place but not time. Patient has underlying advanced dementia but is following commands. HEENT: Normocephalic, atraumatic, moist mucous membranes Respiratory/pulmonary: There are still bilateral coarse sounds with a associated secretions present on both lung paulino. No wheezes at this time Cardiovascular: Normal heart sounds S1 and S2 with no associated murmurs Abdomen: Abdomen nondistended, there is no pain to palpation in any of the abdominal quadrants, no palpable masses. Extremities: Left upper extremity is bigger in size compared to right upper extremity. There is no peripheral edema present at the lower extremities. Peripheral Pulses: 3+ Radial (R). 3+ Radial (L). 3+ Dorsalis pedis (R). 3+ Dorsalis pedis(L) Skin: No rashes or pruritus, there is no sacral edema present at this time. Neurological: Patient has underlying dementia, alert and oriented x2. Cranial nerves unable to be evaluated independently due to gen weakness. laboratory and microbiology Laboratory Tests 02/16/24 04:36 Test 02/16/24 04:36 Range/Units Serum Glucose 295 H 74-106 mg/dL Microbiology Date/Time Source Procedure Growth Status 02/14/24 05:17 Nose MRSA Screen - Final Complete Problem List/Assessment/Plan Problem List/Assessment/Plan Assessment/Plan Altered level of consciousness likely due to acute metabolic encephalopathy -ordered ammonia levels which came back on normal range -CT scan of the head without contrast came back showing no acute intracranial abnormalities Acute hypoxic respiratory failure likely due to Covid 19 pneumonia, R/O gram +/- pneumonia -patient was recently hospitalized for aspiration pneumonia less than one month ago and is residing in a intermediate facility, which increases the risk for MRSA/Pseudomonas colonization -initial chest x-ray showed possible vascular congestion with bibasilar patchy infiltrates -continue IV vancomycin -continue IV cefepime -ordered sputum cultures, still pending -tested positive for COVID-19 -Monitor saturation closely SHELLI on CKD stage II -creatinine is 1.09 and BUN 30, Improving -monitor kidney function Acute on chronic systolic heart failure (HFrEF 20%) -currently no signs/symptoms of vascular congestion, no peripheral edema -continue carvedilol 3.125 mg b.i.d. -blood pressure has been on normal range, monitor closely -BNP is 39.91 -troponins came back negative Dyslipidemia -Lipid panel unremarkable -continue atorvastatin 40 mg q.d. Primary hypertension -currently on carvedilol 3.125 b.i.d. -monitor blood pressure closely Type 2 diabetes mellitus -last hemoglobin A1c on last visit on 12/31 was 6.5% -currently on moderate sliding scale insulin -monitor blood glucose closely BPH -continue tamsulosin 0.4 mg q.d. History of advanced dementia -monitor History of coronary artery disease -currently on aspirin 81 mg q.d. -atorvastatin 40 mg q.d. Nutrition -Place NG tube but patient took it out and is refusing placing it back -Switch from clinimix to TPN -Start TPN while possible PEG tube placement is considered -GI on board, consulted for poss PEG ube placement DVT prophylaxis -enoxaparin 40 mg q.d. SC Patient was able to swallow apple sauce and some po meds are going to be given with apple sauce, Will start TPN while we consider the possibility of PEG tube placement Goals of care discussed with the patient at bedside for >23min, FULL CODE Plan discussed with Dr. Thomas Plan discussed with: Patient My Orders My Orders Orders - DAVID TEMPLE RESIDENT Procedure Category Date Status Time * Dietary Consult CONS 02/15/24 Transmitted 11:47 Clinimix Per Pharmacy MARBIN 02/15/24 In Process 22:00 PICC BD 02/15/24 Transmitted 13:50 Tpn Per Pharmacy MARBIN 02/15/24 In Process 13:51 Tpn Per Pharmacy PHA 02/15/24 In Process 14:15 Tpn Per Pharmacy MARBIN 02/15/24 In Process 22:00 Pureed DIET 02/15/24 Transmitted Dinner Nursing Protocol Picc MARBIN 02/15/24 In Process 17:43 Change Dressing Prn MARBIN 02/15/24 In Process 17:43 PICC BD 02/15/24 Transmitted 17:43 Sodium Chloride Lock PHA 02/15/24 In Process (Saline Lock Ns) 22:00 Do Not Use Picc For MARBIN 02/15/24 In Process Blood Cult 17:43 May Draw Blood From MARBIN 02/15/24 In Process Picc 17:43 Ok To Use Picc MARBIN 02/15/24 In Process 17:43 Change Picc Dressing MARBIN 02/15/24 In Process Q7 Days 17:43 Respiratory Culture GAYLA 02/16/24 Uncollected W/ Gs 06:53 Vancomycin PHA 02/16/24 In Process 750mg/150ml 11:00 Complete Blood Count LAB 02/17/24 Verified 04:00 Creatinine LAB 02/17/24 Verified 04:00 Vancomycin,Random LAB 02/17/24 Verified 04:00 Dietary Evaluation Review Comments: 1) Consider 1 pkt STACEY BIDWM for wound 2) If GI is accessible consider Glucerna 1.2 @ 60ml/hr x24 hrs to meet estimated needs 3) Advance pt diet when medically feasible to a CCHO 60g/Cardiac diet 4) Continue current plan of care Expected Outcomes/Goals: 1) Pt to receive adequate nutrition within 7 days of NPO status 2) Pt diet to advance 3) F/U in 2-3 days Date of Service: Feb 16, 2024 Billing Provider: ESVIN THOMAS MD Common Visit Codes: [id number] INP/OBS CARE(HIGH) DAVID TEMPLE RESIDENT Feb 16, 2024 11:47 ESVIN THOMAS MD Feb 20, 2024 07:04
[2024-02-16] MEDS ORDERED: POTASSIUM CHLORIDE 40 MEQ, LIDOCAINE 1% (LOCAL ANESTH.) 4 ML in SODIUM CHL 0.9% 250 ML IV ONE (12:00)
[2024-02-16] MEDS: CEFEPIME 1GM/ 50ML 50 ML IV SCH (14:06)
[2024-02-16] MEDS: POTASSIUM CHL 20MEQ/100ML 100 ML IV ONE (15:28)
[2024-02-16] MEDS: SODIUM PHOSPHATES 40 MEQ in D5W 5% 250 ML IV ONE (17:23)
--- NOTE | 2024-02-16 19:56 | DVHPN2 ---
Progress Note - Dictate Date Seen: Feb 16, 2024 Has the PT tested + for MRSA If YES, has PT been informed?: No Medical Necessity Reason Pt with a Central, PICC or Fol: No Subjective Patient was started on IV Clinimix He was able to eat some applesauce with his medications and pureed food this morning Pt is COVID positive vital signs Vital Sign Date Time Temp Pulse Resp B/P (MAP) Pulse Ox O2 Delivery O2 Flow Rate FiO2 02/16/24 17:00 98.7 76 14 100/70 (80) 98 98.7 02/16/24 07:54 Nasal Cannula* 2 28 Total Intake and Output 02/15/24 02/15/24 02/16/24 15:00 23:00 07:00 Intake Total 0 ml 0 ml 420 ml Output Total 250 ml 500 ml Balance 0 ml -250 ml -80 ml medications Current Medications Medications Dose Ordered Sig/Jessica Route Start Time Stop Time Status Last Admin Dose Admin Sodium Chloride 10 ml Q8HR IV 02/13/24 06:00 02/16/24 14:04 10 ML Acetaminophen 325 mg Q4HP PRN PO 02/12/24 22:15 Acetaminophen/ Hydrocodone Bitart 1 tab Q4HP PRN PO 02/12/24 22:15 Ondansetron HCl 4 mg Q4HP PRN IV 02/12/24 22:15 Enoxaparin Sodium 40 mg DAILY SC 02/13/24 10:00 02/16/24 09:49 40 MG Nitroglycerin 0.4 mg Q5MINP PRN SL 02/12/24 22:15 Morphine Sulfate 2 mg Q30M PRN IV 02/12/24 22:15 Carvedilol 3.125 mg BID PO 02/13/24 10:00 02/16/24 09:49 3.125 MG Gabapentin 300 mg BID PO 02/13/24 10:00 02/16/24 09:49 300 MG Vancomycin HCl 0 ml @ 0 mls/hr UD IV 02/13/24 08:45 Atorvastatin Calcium 40 mg HS PO 02/13/24 22:00 Tamsulosin HCl 0.4 mg QPM PO 02/13/24 18:00 02/16/24 18:21 0.4 MG Aspirin 81 mg DAILY PO 02/14/24 10:00 02/16/24 09:50 81 MG Enteral Nutritional Formula 1,000 ml 30ML/HR GT 02/14/24 10:15 Diagnostic Test (Pha) 1 strip Q6HR 02/14/24 18:00 02/16/24 18:21 1 STRIP Insulin Human Regular FOLLOW SLIDING SCALE Q6HR SC 02/14/24 18:00 02/16/24 11:41 12 UNITS Dextrose 50 ml UD IV 02/14/24 18:00 Amino Acids/ Electrolytes/ Dextrose 1,000 ml @ 41 mls/hr DAILY@2200 IV 02/14/24 22:00 02/16/24 21:59 02/15/24 22:00 41 MLS/HR Amino Acids 0 ml @ 0 mls/hr PER PHARMACY IV 02/15/24 14:15 Sodium Chloride 10 ml QSHIFT@10,22 IV 02/15/24 22:00 02/16/24 09:46 10 ML Fat Emulsion Intravenous 50 ml/ Sodium Acetate 20 meq/Sodium Phosphate 20 meq/ Potassium Acetate 20 meq/Potassium Phosphate 22 meq/ Magnesium Sulfate 8 meq/ Multivitamins 10 ml/Chromium/ Copper/Manganese/ Zinc 1 ml/Insulin Human Regular 12 units/Amino Acids/ Dextrose/Purified Water 943.12 ml @ 39 mls/hr [id number] IV 02/16/24 22:00 02/17/24 22:10 Cefepime HCl 50 ml @ 12.5 mls/hr Q8H IV 02/16/24 14:00 02/16/24 14:06 12.5 MLS/HR objective General: NAD, AAOX3 Chest: lung paulino clear to auscultation Heart: RRR, no murmur Abdomen: non-distended, no tenderness to palpation, +BS laboratory and microbiology Laboratory Tests 02/16/24 04:36 Test 02/16/24 04:36 Range/Units Serum Glucose 295 H 74-106 mg/dL Problems(with codes): (1) Dyspnea (2) Pneumonia (3) Elevated liver enzymes (4) Respiratory failure (5) CHF (congestive heart failure) (6) Hypernatremia Prognosis Plan I discussed the option of a feeding tube with the patient yesterday but he refused at that time I will continue to monitor this patient daily and if his overall medical condition and swallowing does not improve then I will rediscuss the possibility of a PEG tube placement Continue IV Clinimix and supportive care and repeat swallow eval next week Dietary Evaluation Review Comments: 1) Consider 1 pkt STACEY BIDWM for wound 2) If GI is accessible consider Glucerna 1.2 @ 60ml/hr x24 hrs to meet estimated needs 3) Advance pt diet when medically feasible to a CCHO 60g/Cardiac diet 4) Continue current plan of care Expected Outcomes/Goals: 1) Pt to receive adequate nutrition within 7 days of NPO status 2) Pt diet to advance 3) F/U in 2-3 days Plan discussed with: Patient, Other (Thuy Duncan) BRODERICK DAMIAN MD Feb 16, 2024 19:56
[2024-02-17] VITALS (8 sets, daily range): BP systolic 108–137; BP diastolic 68–79; PULSE 81–101; RESP 17–19; TEMP 97.4–97.8; O2SAT 94–99
[2024-02-17] MEDS: TPN PER PHARMACY IV NR ×2 (00:29→21:51)
[2024-02-17 06:12] LABS: Alanine Aminotransferase 18 U/L (7-40); Alkaline Phosphatase 75 U/L (46-116); Anion Gap 8 (5-15); Aspartate Aminotransferase 23 U/L (13-40); BUN/Creatinine Ratio 24.2 (10.0-20.0); Blood Urea Nitrogen 22 mg/dL (9-23); Calcium 8.5 mg/dL (8.7-10.4); Carbon Dioxide 21 mmol/L (20-31); Chloride 108 mmol/L (98-107); Glucose 331 mg/dL (74-106); Magnesium 1.8 mg/dL (1.6-2.6); Potassium 3.3 mmol/L (3.5-5.1); Sodium 137 mmol/L (136-145)
[2024-02-17 06:13] LABS: Bilirubin, Total 0.4 mg/dL (0.2-1.0); Phosphorus 3.7 mg/dL (2.4-5.1); Total Protein 6.3 g/dL (5.7-8.2)
[2024-02-17 06:16] LABS: Basophils # (auto) 0 10 ^3/uL (0-0.2); Eosinophils # (auto) 0 10 ^3/uL (0-0.8)
[2024-02-17 06:19] LABS: Basophils % (auto) 0.5 % (0.0-2.0); Eosinophils % (auto) 0.4 % (0.0-7.0); Hematocrit 34.9 % (41.0-53.0); Hemoglobin 11.8 g/dL (13.5-17.5); Lymphocytes # (auto) 1.2 10 ^3/uL (0.4-5.4); Lymphocytes % (auto) 13.8 % (10.0-50.0); Mean Corpuscular Hemoglobin 35.2 pg (28.0-32.0); Mean Corpuscular Hgb Conc. 33.7 g/dL (32.0-36.0); Mean Corpuscular Volume 104.3 fL (80.0-100.0); Monocytes # (auto) 0.7 10 ^3/uL (0-1.3); Monocytes % (auto) 8.3 % (0.0-12.0); Neutrophils # (auto) 6.9 10 ^3/uL (1.6-8.6); Nucleated Red Blood Cells % 0.1 %; Platelet Count (auto) 406 10^3/uL (140-450); Red Blood Cells 3.35 10^6/uL (4.5-5.90); Red Cell Distribution Width 13.9 % (11.8-14.3)
[2024-02-17] MEDS ORDERED: VANCOMYCIN PER PHARMACY 0 MG IV SCH (08:15)
[2024-02-17] MEDS: POTASSIUM CHL 20 Meq TABLET PO ONE (09:15)
[2024-02-17] MEDS: VANCOMYCIN 750mg/150ml 150 ML IV SCH (10:00)
[2024-02-17] MEDS: POTASSIUM PHOSPHATE 26.4 MEQ in SODIUM CHL 0.9% 100 ML IV ONE (11:00)
--- NOTE | 2024-02-17 11:55 | DVHPNRES ---
Progress Note Date Seen: Feb 17, 2024 Resident Creating Document: RAJ JETT RESIDENT Has the PT tested + for MRSA If YES, has PT been informed?: No Medical Necessity Reason Pt with a Central, PICC or Fol: No Subjective Review of Systems This is a 73-year-old male with PMH of CHF, diabetes mellitus, DKA, AFib, hypertension, hyperlipidemia, advanced dementia, peripheral neuropathy, anxiety, CAD, BPH and polysubstance abuse disorder presented to the ED with altered level of consciousness since morning prior to this admission. Patient came from [facility] acute care due to abnormal level of potassium 5.3. On admission patient was on alert and oriented x2, patient came from [facility] acute (SNF facility). The patient was discharged on 01/31/2024. At that time the patient was treated for acute on chronic systolic heart failure and aspiration pneumonia for which the patient received IV Zosyn and then was switched to IV Bactrim due to sputum culture growing Burkholderia cepacia. At this time, the patient came due to ALOC with mild SOB. Initial chest x-ray was showing possible vascular congestion with bibasilar patchy infiltrates. A CT scan of the head without contrast was performed which came back unremarkable. Patient was admitted for further assessment and management. Patient was seen today for clinical evaluation. Labs and chart reviewed. Patient hypokalemia, potassium 3.3, ordered potassium supplement. Patient has bilateral lung crackles on auscultation. Patient is due for PEG tube tomorrow on Sunday or Sunday. MRSA negative. Patient on pureed diet. Discontinued Clinimix, on TPN. Patient on antibiotic iv cefepime, tolerating well. Discontinued vancomycin as nares MRSA negative. ROS Patient was seen today at the bedside. Patient reports feeling better today Cardiovascular- deny acute chest pain or palpitation Respiratory- denies cough or short of breath or wheezing Gastrointestinal- denies any rectal bleeding, nausea or vomiting Musculoskeletal-denies acute joint swelling or tenderness or redness Neurological- denies acute dysarthria, dysphagia, change in vision Psychiatry- denies depression or SI or HI Skin- denies acute rash or purpura Objective vital signs Vital Sign Date Time Temp Pulse Resp B/P (MAP) Pulse Ox O2 Delivery O2 Flow Rate FiO2 02/17/24 09:14 81 125/72 02/17/24 09:00 97.6 18 96 97.6 02/16/24 20:00 Room Air* 0 21 Total Intake and Output 02/16/24 02/16/24 02/17/24 15:00 23:00 07:00 Intake Total 480 ml 100 ml Output Total 800 ml 600 ml Balance -320 ml -500 ml medications Current Medications Medications Dose Ordered Sig/Jessica Route Start Time Stop Time Status Last Admin Dose Admin Acetaminophen 325 mg Q4HP PRN PO 02/12/24 22:15 Acetaminophen/ Hydrocodone Bitart 1 tab Q4HP PRN PO 02/12/24 22:15 Ondansetron HCl 4 mg Q4HP PRN IV 02/12/24 22:15 Enoxaparin Sodium 40 mg DAILY SC 02/13/24 10:00 02/17/24 09:15 40 MG Nitroglycerin 0.4 mg Q5MINP PRN SL 02/12/24 22:15 Morphine Sulfate 2 mg Q30M PRN IV 02/12/24 22:15 Carvedilol 3.125 mg BID PO 02/13/24 10:00 02/17/24 09:14 3.125 MG Gabapentin 300 mg BID PO 02/13/24 10:00 02/17/24 09:14 300 MG Atorvastatin Calcium 40 mg HS PO 02/13/24 22:00 02/16/24 22:00 40 MG Tamsulosin HCl 0.4 mg QPM PO 02/13/24 18:00 02/16/24 18:21 0.4 MG Aspirin 81 mg DAILY PO 02/14/24 10:00 02/17/24 09:15 81 MG Enteral Nutritional Formula 1,000 ml 30ML/HR GT 02/14/24 10:15 Diagnostic Test (Pha) 1 strip Q6HR 02/14/24 18:00 02/17/24 06:01 1 STRIP Insulin Human Regular FOLLOW SLIDING SCALE Q6HR SC 02/14/24 18:00 02/17/24 06:27 12 UNITS Dextrose 50 ml UD IV 02/14/24 18:00 Amino Acids 0 ml @ 0 mls/hr PER PHARMACY IV 02/15/24 14:15 Sodium Chloride 10 ml QSHIFT@, IV 02/15/24 22:00 02/17/24 09:29 10 ML Cefepime HCl 50 ml @ 12.5 mls/hr Q8H IV 02/16/24 14:00 02/17/24 06:09 12.5 MLS/HR Vancomycin HCl 0 ml @ 0 mls/hr UD IV 02/17/24 08:15 Vancomycin HCl 150 ml @ 150 mls/hr Q12H IV 02/17/24 10:00 Fat Emulsion Intravenous 100 ml/Sodium Acetate 60 meq/Potassium Acetate 40 meq/ Potassium Phosphate 22 meq/ Magnesium Sulfate 12 meq/ Multivitamins 10 ml/Chromium/ Copper/Manganese/ Zinc 1 ml/Insulin Human Regular 20 units/Amino Acids/ Dextrose 1,119.2 ml @ 47 mls/hr [id number] IV 02/17/24 22:00 02/18/24 21:59 Examination General: Patient alert and oriented in person and place but not time. Patient has underlying advanced dementia but is following commands. HEENT: Normocephalic, atraumatic, moist mucous membranes Respiratory/pulmonary: There are still bilateral coarse sounds with a associated secretions present on both lung paulino. No wheezes at this time Cardiovascular: Normal heart sounds S1 and S2 with no associated murmurs Abdomen: Abdomen nondistended, there is no pain to palpation in any of the abdominal quadrants, no palpable masses. Extremities: Left upper extremity is bigger in size compared to right upper extremity. There is no peripheral edema present at the lower extremities. Peripheral Pulses: 3+ Radial (R). 3+ Radial (L). 3+ Dorsalis pedis (R). 3+ Dorsalis pedis(L) Skin: No rashes or pruritus, there is no sacral edema present at this time. Neurological: Patient has underlying dementia, alert and oriented x2. Cranial nerves unable to be evaluated independently due to gen weakness. laboratory and microbiology Laboratory Tests 02/17/24 04:56 Test 02/17/24 04:56 Range/Units Serum Glucose 331 H 74-106 mg/dL Microbiology Date/Time Source Procedure Growth Status 02/14/24 05:17 Nose MRSA Screen - Final Complete Problem List/Assessment/Plan Problem List/Assessment/Plan Altered level of consciousness likely due to acute metabolic encephalopathy -ordered ammonia levels which came back on normal range -CT scan of the head without contrast came back showing no acute intracranial abnormalities Acute hypoxic respiratory failure likely due to Covid 19 pneumonia, R/O gram +/- pneumonia -patient was recently hospitalized for aspiration pneumonia less than one month ago and is residing in a [facility], which increases the risk for MRSA/Pseudomonas colonization -initial chest x-ray showed possible vascular congestion with bibasilar patchy infiltrates -discontinued IV vancomycin as nares MRSA is negative -continue IV cefepime -ordered sputum cultures, still pending -tested positive for COVID-19 -Monitor saturation closely # hypokalemia, potassium 3.3 -replenished Monitor BMP SHELLI on CKD stage II -creatinine is .91>1.09 and BUN 30, Improving -monitor kidney function Acute on chronic systolic heart failure (HFrEF 20%) -currently no signs/symptoms of vascular congestion, no peripheral edema -continue carvedilol 3.125 mg b.i.d. -blood pressure has been on normal range, monitor closely -BNP is 39.91 -troponins came back negative Dyslipidemia -Lipid panel unremarkable -continue atorvastatin 40 mg q.d. Primary hypertension -currently on carvedilol 3.125 b.i.d. -monitor blood pressure closely Type 2 diabetes mellitus -last hemoglobin A1c on last visit on 12/31 was 6.5% -currently on moderate sliding scale insulin -monitor blood glucose closely BPH -continue tamsulosin 0.4 mg q.d. History of advanced dementia -monitor History of coronary artery disease -currently on aspirin 81 mg q.d. -atorvastatin 40 mg q.d. Nutrition -Place NG tube but patient took it out and is refusing placing it back -Switch from clinimix to TPN, discontinued Clinimix -continue TPN while possible PEG tube placement is considered -GI on board, consulted for poss PEG ube placement -GI recommended-will continue to monitor this patient daily and if his overall medical condition and swallowing does not improve then I will rediscuss the possibility of a PEG tube placement DVT prophylaxis -enoxaparin 40 mg q.d. SC Patient was able to swallow apple sauce and some po meds are going to be given with apple sauce, Will start TPN while we consider the possibility of PEG tube placement Goals of care discussed with the patient at bedside for >23min, FULL CODE Plan discussed with Dr. Thomas Plan discussed with: Patient Plan discussed with: Patient, Other (RN) My Orders My Orders Orders - RAJ JETT RESIDENT Procedure Category Date Status Time Vancomycin Per PHA 02/17/24 In Process Pharmacy 08:15 Vancomycin PHA 02/17/24 In Process 750mg/150ml 10:00 Complete Blood Count LAB 02/18/24 Verified 04:00 Creatinine LAB 02/18/24 Verified 04:00 Vancomycin,Trough LAB 02/18/24 Verified 21:00 Vancomycin Per MARBIN 02/17/24 In Process Pharmacy Protoc 09:03 Dietary Evaluation Review Comments: 1) Consider 1 pkt STACEY BIDWM for wound 2) If GI is accessible consider Glucerna 1.2 @ 60ml/hr x24 hrs to meet estimated needs 3) Advance pt diet when medically feasible to a CCHO 60g/Cardiac diet 4) Continue current plan of care Expected Outcomes/Goals: 1) Pt to receive adequate nutrition within 7 days of NPO status 2) Pt diet to advance 3) F/U in 2-3 days Date of Service: Feb 17, 2024 Billing Provider: ESVIN THOMAS MD Common Visit Codes: [id number] INP/OBS CARE(HIGH) RAJ JETT RESIDENT Feb 17, 2024 11:55 ESVIN THOMAS MD Feb 20, 2024 07:05
--- NOTE | 2024-02-17 16:26 | DVHPN2 ---
Progress Note - Dictate Date Seen: Feb 17, 2024 Has the PT tested + for MRSA If YES, has PT been informed?: No Medical Necessity Reason Pt with a Central, PICC or Fol: No Subjective Patient is able to tolerate pureed diet with the assistance and he takes his medications with applesauce Patient does not do well with liquids even nectar thickened liquids As you started on IV fluids and IV Clinimix Pt is COVID positive vital signs Vital Sign Date Time Temp Pulse Resp B/P (MAP) Pulse Ox O2 Delivery O2 Flow Rate FiO2 02/17/24 09:14 81 125/72 02/17/24 09:00 97.6 18 96 97.6 02/17/24 08:00 Nasal Cannula* 2 28 Total Intake and Output 02/16/24 02/16/24 02/17/24 15:00 23:00 07:00 Intake Total 480 ml 100 ml Output Total 800 ml 600 ml Balance -320 ml -500 ml medications Current Medications Medications Dose Ordered Sig/Jessica Route Start Time Stop Time Status Last Admin Dose Admin Acetaminophen 325 mg Q4HP PRN PO 02/12/24 22:15 Acetaminophen/ Hydrocodone Bitart 1 tab Q4HP PRN PO 02/12/24 22:15 Ondansetron HCl 4 mg Q4HP PRN IV 02/12/24 22:15 Enoxaparin Sodium 40 mg DAILY SC 02/13/24 10:00 02/17/24 09:15 40 MG Nitroglycerin 0.4 mg Q5MINP PRN SL 02/12/24 22:15 Morphine Sulfate 2 mg Q30M PRN IV 02/12/24 22:15 Carvedilol 3.125 mg BID PO 02/13/24 10:00 02/17/24 09:14 3.125 MG Gabapentin 300 mg BID PO 02/13/24 10:00 02/17/24 09:14 300 MG Atorvastatin Calcium 40 mg HS PO 02/13/24 22:00 02/16/24 22:00 40 MG Tamsulosin HCl 0.4 mg QPM PO 02/13/24 18:00 02/16/24 18:21 0.4 MG Aspirin 81 mg DAILY PO 02/14/24 10:00 02/17/24 09:15 81 MG Enteral Nutritional Formula 1,000 ml 30ML/HR GT 02/14/24 10:15 Diagnostic Test (Pha) 1 strip Q6HR 02/14/24 18:00 02/17/24 12:00 1 STRIP Insulin Human Regular FOLLOW SLIDING SCALE Q6HR SC 02/14/24 18:00 02/17/24 13:00 12 UNITS Dextrose 50 ml UD IV 02/14/24 18:00 Amino Acids 0 ml @ 0 mls/hr PER PHARMACY IV 02/15/24 14:15 Sodium Chloride 10 ml QSHIFT@10,22 IV 02/15/24 22:00 02/17/24 09:29 10 ML Cefepime HCl 50 ml @ 12.5 mls/hr Q8H IV 02/16/24 14:00 02/17/24 06:09 12.5 MLS/HR Fat Emulsion Intravenous 100 ml/Sodium Acetate 60 meq/Potassium Acetate 40 meq/ Potassium Phosphate 22 meq/ Magnesium Sulfate 12 meq/ Multivitamins 10 ml/Chromium/ Copper/Manganese/ Zinc 1 ml/Insulin Human Regular 20 units/Amino Acids/ Dextrose 1,119.2 ml @ 47 mls/hr [id number] IV 02/17/24 22:00 02/18/24 21:59 objective General: NAD, AAOX3 Chest: lung paulino clear to auscultation Heart: RRR, no murmur Abdomen: non-distended, no tenderness to palpation, +BS laboratory and microbiology Laboratory Tests 02/17/24 04:56 Test 02/17/24 04:56 Range/Units Serum Glucose 331 H 74-106 mg/dL Problems(with codes): (1) COVID-19 (2) Elevated liver enzymes (3) Pneumonia (4) Respiratory failure (5) Hypernatremia (6) CHF (congestive heart failure) (7) Dyspnea Prognosis Plan I discussed the option of a feeding tube with the patient but he refused I will continue to monitor this patient daily and if his overall medical condition and swallowing does not improve then I will rediscuss the possibility of a PEG tube placement Continue IV Clinimix and supportive care and repeat swallow eval next week Dietary Evaluation Review Comments: 1) Consider 1 pkt STACEY BIDWM for wound 2) If GI is accessible consider Glucerna 1.2 @ 60ml/hr x24 hrs to meet estimated needs 3) Advance pt diet when medically feasible to a CCHO 60g/Cardiac diet 4) Continue current plan of care Expected Outcomes/Goals: 1) Pt to receive adequate nutrition within 7 days of NPO status 2) Pt diet to advance 3) F/U in 2-3 days Plan discussed with: Patient, Other (Nurse) BRODERICK DAMIAN MD Feb 17, 2024 16:26
[2024-02-17] MEDS: ACETAMINOPHEN 325 MG TAB PO PRN (22:01)
[2024-02-18] VITALS (8 sets, daily range): BP systolic 92–125; BP diastolic 62–72; PULSE 85–107; RESP 16–22; TEMP 97.2–98.7; O2SAT 94–97
[2024-02-18 09:22] LABS: Basophils # (auto) 0.1 10 ^3/uL (0-0.2); Basophils % (auto) 0.6 % (0.0-2.0); Eosinophils # (auto) 0.1 10 ^3/uL (0-0.8); Eosinophils % (auto) 0.6 % (0.0-7.0); Hematocrit 34.1 % (41.0-53.0); Hemoglobin 11.4 g/dL (13.5-17.5); Lymphocytes # (auto) 1.8 10 ^3/uL (0.4-5.4); Lymphocytes % (auto) 16.9 % (10.0-50.0); Mean Corpuscular Hemoglobin 34.3 pg (28.0-32.0); Mean Corpuscular Hgb Conc. 33.6 g/dL (32.0-36.0); Monocytes # (auto) 0.6 10 ^3/uL (0-1.3); Neutrophils # (auto) 7.9 10 ^3/uL (1.6-8.6); Neutrophils % (auto) 75.9 % (37.0-80.0); Nucleated Red Blood Cells % 0.1 %; Platelet Count (auto) 428 10^3/uL (140-450); Red Blood Cells 3.34 10^6/uL (4.5-5.90); Red Cell Distribution Width 13.7 % (11.8-14.3); White Blood Cell 10.5 10^3/uL (4.4-10.8)
[2024-02-18 09:35] LABS: Alanine Aminotransferase 18 U/L (7-40); Albumin 2.8 g/dL (3.2-4.8); Alkaline Phosphatase 68 U/L (46-116); Anion Gap 3 (5-15); Aspartate Aminotransferase 23 U/L (13-40); BUN/Creatinine Ratio 25.4 (10.0-20.0); Bilirubin, Total 0.4 mg/dL (0.2-1.0); Blood Urea Nitrogen 18 mg/dL (9-23); Calcium 8.1 mg/dL (8.7-10.4); Carbon Dioxide 25 mmol/L (20-31); Chloride 105 mmol/L (98-107); Glucose 267 mg/dL (74-106); Magnesium 1.6 mg/dL (1.6-2.6); Phosphorus 1.8 mg/dL (2.4-5.1); Potassium 3.7 mmol/L (3.5-5.1); Sodium 133 mmol/L (136-145); Total Protein 5.9 g/dL (5.7-8.2)
[2024-02-18] MEDS: MAGNESIUM SULFATE 1GM/100ML 100 ML IV ONE (13:45)
[2024-02-18] MEDS: SODIUM PHOSPHATES 20 MEQ in SODIUM CHL 0.9% 100 ML IV ONE (15:39)
--- NOTE | 2024-02-18 16:12 | DVHPNRES ---
Progress Note Date Seen: Feb 18, 2024 Resident Creating Document: DAVID TEMPLE RESIDENT Has the PT tested + for MRSA If YES, has PT been informed?: No Medical Necessity Reason Pt with a Central, PICC or Fol: No Subjective Review of Systems This is a 73-year-old male with PMH of CHF, diabetes mellitus, DKA, AFib, hypertension, hyperlipidemia, advanced dementia, peripheral neuropathy, anxiety, CAD, BPH and polysubstance abuse disorder presented to the ED with altered level of consciousness since morning prior to this admission. Patient came from [facility] acute care due to abnormal level of potassium 5.3. On admission patient was on alert and oriented x2, patient came from [facility] acute (SNF facility). The patient was discharged on 01/31/2024. At that time the patient was treated for acute on chronic systolic heart failure and aspiration pneumonia for which the patient received IV Zosyn and then was switched to IV Bactrim due to sputum culture growing Burkholderia cepacia. At this time, the patient came due to ALOC with mild SOB. Initial chest x-ray was showing possible vascular congestion with bibasilar patchy infiltrates. A CT scan of the head without contrast was performed which came back unremarkable. Patient was admitted for further assessment and management. Patient seen and examined at bedside. Patient looks weak and fatigued, patient is tolerating pureed diet and apple sauce with his PO meds. The patient is currently saturating 97% on room air, morning labs were grossly unremarkable. We will continue monitor patient nutrition, patient passed swallow evaluation for pureed diet once again today. We will place a social service consult on discharge planning. ROS Constitutional: Denies weight loss, fever and chills. HEENT: Denies changes in vision and hearing. Respiratory: Denies shortness of breath and cough Cardiovascular: Denies chest discomfort or palpitations GI: Denies abdominal pain, nausea, vomiting and diarrhea. : Denies dysuria and urinary frequency. Musculoskeletal: Denies myalgias and joint pain Skin: Denies rash and pruritus. Neurological: Denies dizziness, headache, vision or hearing problems Objective vital signs Vital Sign Date Time Temp Pulse Resp B/P (MAP) Pulse Ox O2 Delivery O2 Flow Rate FiO2 02/18/24 13:00 97.7 97 22 125/72 (89) 96 97.7 02/18/24 08:00 Room Air* 0 21 Total Intake and Output 02/17/24 02/17/24 02/18/24 14:59 22:59 06:59 Intake Total 1550 ml 150 ml Output Total 500 ml 800 ml Balance 1050 ml -650 ml medications Current Medications Medications Dose Ordered Sig/Jessica Route Start Time Stop Time Status Last Admin Dose Admin Acetaminophen 325 mg Q4HP PRN PO 02/12/24 22:15 02/17/24 22:01 325 MG Acetaminophen/ Hydrocodone Bitart 1 tab Q4HP PRN PO 02/12/24 22:15 Ondansetron HCl 4 mg Q4HP PRN IV 02/12/24 22:15 Enoxaparin Sodium 40 mg DAILY SC 02/13/24 10:00 02/18/24 11:10 40 MG Nitroglycerin 0.4 mg Q5MINP PRN SL 02/12/24 22:15 Morphine Sulfate 2 mg Q30M PRN IV 02/12/24 22:15 Carvedilol 3.125 mg BID PO 02/13/24 10:00 02/18/24 11:09 3.125 MG Gabapentin 300 mg BID PO 02/13/24 10:00 02/18/24 11:09 300 MG Atorvastatin Calcium 40 mg HS PO 02/13/24 22:00 02/17/24 22:02 40 MG Tamsulosin HCl 0.4 mg QPM PO 02/13/24 18:00 02/17/24 17:14 0.4 MG Aspirin 81 mg DAILY PO 02/14/24 10:00 02/18/24 11:09 81 MG Enteral Nutritional Formula 1,000 ml 30ML/HR GT 02/14/24 10:15 Diagnostic Test (Pha) 1 strip Q6HR 02/14/24 18:00 02/18/24 11:25 1 STRIP Insulin Human Regular FOLLOW SLIDING SCALE Q6HR SC 02/14/24 18:00 02/18/24 11:29 16 UNITS Dextrose 50 ml UD IV 02/14/24 18:00 Amino Acids 0 ml @ 0 mls/hr PER PHARMACY IV 02/15/24 14:15 Sodium Chloride 10 ml QSHIFT@10,22 IV 02/15/24 22:00 02/18/24 11:10 10 ML Cefepime HCl 50 ml @ 12.5 mls/hr Q8H IV 02/16/24 14:00 02/18/24 05:41 12.5 MLS/HR Fat Emulsion Intravenous 100 ml/Sodium Acetate 60 meq/Potassium Acetate 40 meq/ Potassium Phosphate 22 meq/ Magnesium Sulfate 12 meq/ Multivitamins 10 ml/Chromium/ Copper/Manganese/ Zinc 1 ml/Insulin Human Regular 20 units/Amino Acids/ Dextrose 1,119.2 ml @ 47 mls/hr [id number] IV 02/17/24 22:00 02/18/24 21:59 02/17/24 21:51 47 MLS/HR Fat Emulsion Intravenous 100 ml/Sodium Acetate 30 meq/Sodium Phosphate 40 meq/ Potassium Chloride 20 meq/ Potassium Acetate 40 meq/Magnesium Sulfate 18 meq/ Multivitamins 10 ml/Chromium/ Copper/Manganese/ Zinc 1 ml/Insulin Human Regular 18 units/Amino Acids/ Dextrose/Purified Water 1,270.68 ml @ 53 mls/hr [id number] IV 02/18/24 22:00 02/19/24 21:59 Examination Physical Examination General: Patient alert and oriented in person and place but not time. Patient has underlying advanced dementia but is following commands. HEENT: Normocephalic, atraumatic, moist mucous membranes Respiratory/pulmonary: There are still bilateral coarse sounds with a associated secretions present but otherwise bilat lungs sounds grossly clear. No wheezes at this time Cardiovascular: Normal heart sounds S1 and S2 with no associated murmurs Abdomen: Abdomen nondistended, there is no pain to palpation in any of the abdominal quadrants, no palpable masses. Extremities: Left upper extremity is bigger in size compared to right upper extremity. There is no peripheral edema present at the lower extremities. Peripheral Pulses: 3+ Radial (R). 3+ Radial (L). 3+ Dorsalis pedis (R). 3+ Dorsalis pedis(L) Skin: No rashes or pruritus, there is no sacral edema present at this time. Neurological: Patient has underlying dementia, alert and oriented x2. Cranial nerves unable to be evaluated independently due to gen weakness. laboratory and microbiology Laboratory Tests 02/18/24 09:06 Test 02/18/24 09:06 Range/Units Serum Glucose 267 H 74-106 mg/dL Microbiology Date/Time Source Procedure Growth Status 02/14/24 05:17 Nose MRSA Screen - Final Complete Problem List/Assessment/Plan Problem List/Assessment/Plan Assessment/Plan Altered level of consciousness likely due to acute metabolic encephalopathy -ordered ammonia levels which came back on normal range -CT scan of the head without contrast came back showing no acute intracranial abnormalities Acute hypoxic respiratory failure likely due to Covid 19 pneumonia, R/O gram +/- pneumonia -Patient currently saturating 96% on room air -patient was recently hospitalized for aspiration pneumonia less than one month ago and is residing in a shelter facility, which increases the risk for MRSA/Pseudomonas colonization -initial chest x-ray showed possible vascular congestion with bibasilar patchy infiltrates -continue IV vancomycin -continue IV cefepime -ordered sputum cultures, still pending -tested positive for COVID-19 -Monitor saturation closely SHELLI on CKD stage II -creatinine is 0.71 and BUN 18, Improving -monitor kidney function Acute on chronic systolic heart failure (HFrEF 20%) -currently no signs/symptoms of vascular congestion, no peripheral edema -continue carvedilol 3.125 mg b.i.d. -blood pressure has been on normal range, monitor closely -BNP is 39.91 -troponins came back negative Dyslipidemia -Lipid panel unremarkable -continue atorvastatin 40 mg q.d. Primary hypertension -currently on carvedilol 3.125 b.i.d. -monitor blood pressure closely Type 2 diabetes mellitus -last hemoglobin A1c on last visit on 12/31 was 6.5% -currently on moderate sliding scale insulin -monitor blood glucose closely BPH -continue tamsulosin 0.4 mg q.d. History of advanced dementia -monitor History of coronary artery disease -currently on aspirin 81 mg q.d. -atorvastatin 40 mg q.d. Nutrition -Place NG tube but patient took it out and is refusing placing it back -Continue TPN while possible PEG tube placement is considered -GI on board, consulted for poss PEG tube placement, will wait since the patient is tolerating puree diet. DVT prophylaxis -enoxaparin 40 mg q.d. SC Goals of care discussed with the patient at bedside for >23min, FULL CODE Plan discussed with Dr. Tijerina Plan discussed with: Patient My Orders My Orders Orders - DAVID TEMPLE Procedure Category Date Status Time Amino Acid PHA 02/18/24 In Process Infusion... W/Fat 22:00 Sodium Phosphates PHA 02/18/24 In Process 12:45 Renal Function Test LAB 02/19/24 Verified 06:00 Magnesium LAB 02/19/24 Verified 06:00 Tpn Per Pharmacy MARBIN 02/18/24 In Process 22:00 * Swallow Request ST 02/18/24 Transmitted 13:37 Dietary Evaluation Review Comments: 1) Consider 1 pkt STACEY BIDWM for wound 2) If GI is accessible consider Glucerna 1.2 @ 60ml/hr x24 hrs to meet estimated needs 3) Advance pt diet when medically feasible to a CCHO 60g/Cardiac diet 4) Continue current plan of care Expected Outcomes/Goals: 1) Pt to receive adequate nutrition within 7 days of NPO status 2) Pt diet to advance 3) F/U in 2-3 days Date of Service: Feb 18, 2024 Billing Provider: HÉCTOR TIJERINA MD Common Visit Codes: 78634-[id number] INP/OBS CARE(HIGH) DAVID TEMPLE RESIDENT Feb 18, 2024 16:12 HÉCTOR TIJERINA MD Feb 18, 2024 20:45
--- NOTE | 2024-02-18 19:20 | DVHPN2 ---
Progress Note - Dictate Date Seen: Feb 18, 2024 Has the PT tested + for MRSA If YES, has PT been informed?: No Medical Necessity Reason Pt with a Central, PICC or Fol: No Subjective Patient is able to tolerate pureed diet with the assistance and he takes his medications with applesauce Patient does not do well with liquids even nectar thickened liquids As you started on IV fluids and IV Clinimix Pt is COVID positive vital signs Vital Sign Date Time Temp Pulse Resp B/P (MAP) Pulse Ox O2 Delivery O2 Flow Rate FiO2 02/18/24 16:59 98.7 85 22 104/62 (76) 94 98.7 02/18/24 08:00 Room Air* 0 21 Total Intake and Output 02/17/24 02/17/24 02/18/24 15:00 23:00 07:00 Intake Total 1550 ml 150 ml Output Total 500 ml 800 ml Balance 1050 ml -650 ml medications Current Medications Medications Dose Ordered Sig/Jessica Route Start Time Stop Time Status Last Admin Dose Admin Acetaminophen 325 mg Q4HP PRN PO 02/12/24 22:15 02/17/24 22:01 325 MG Acetaminophen/ Hydrocodone Bitart 1 tab Q4HP PRN PO 02/12/24 22:15 Ondansetron HCl 4 mg Q4HP PRN IV 02/12/24 22:15 Enoxaparin Sodium 40 mg DAILY SC 02/13/24 10:00 02/18/24 11:10 40 MG Nitroglycerin 0.4 mg Q5MINP PRN SL 02/12/24 22:15 Morphine Sulfate 2 mg Q30M PRN IV 02/12/24 22:15 Carvedilol 3.125 mg BID PO 02/13/24 10:00 02/18/24 11:09 3.125 MG Gabapentin 300 mg BID PO 02/13/24 10:00 02/18/24 11:09 300 MG Atorvastatin Calcium 40 mg HS PO 02/13/24 22:00 02/17/24 22:02 40 MG Tamsulosin HCl 0.4 mg QPM PO 02/13/24 18:00 02/18/24 18:15 0.4 MG Aspirin 81 mg DAILY PO 02/14/24 10:00 02/18/24 11:09 81 MG Enteral Nutritional Formula 1,000 ml 30ML/HR GT 02/14/24 10:15 Diagnostic Test (Pha) 1 strip Q6HR 02/14/24 18:00 02/18/24 18:15 1 STRIP Insulin Human Regular FOLLOW SLIDING SCALE Q6HR SC 02/14/24 18:00 02/18/24 18:16 2 UNITS Dextrose 50 ml UD IV 02/14/24 18:00 Amino Acids 0 ml @ 0 mls/hr PER PHARMACY IV 02/15/24 14:15 Sodium Chloride 10 ml QSHIFT@10,22 IV 02/15/24 22:00 02/18/24 11:10 10 ML Cefepime HCl 50 ml @ 12.5 mls/hr Q8H IV 02/16/24 14:00 02/18/24 15:39 12.5 MLS/HR Fat Emulsion Intravenous 100 ml/Sodium Acetate 60 meq/Potassium Acetate 40 meq/ Potassium Phosphate 22 meq/ Magnesium Sulfate 12 meq/ Multivitamins 10 ml/Chromium/ Copper/Manganese/ Zinc 1 ml/Insulin Human Regular 20 units/Amino Acids/ Dextrose 1,119.2 ml @ 47 mls/hr [id number] IV 02/17/24 22:00 02/18/24 21:59 02/17/24 21:51 47 MLS/HR Fat Emulsion Intravenous 100 ml/Sodium Acetate 30 meq/Sodium Phosphate 40 meq/ Potassium Chloride 20 meq/ Potassium Acetate 40 meq/Magnesium Sulfate 18 meq/ Multivitamins 10 ml/Chromium/ Copper/Manganese/ Zinc 1 ml/Insulin Human Regular 18 units/Amino Acids/ Dextrose/Purified Water 1,270.68 ml @ 53 mls/hr [id number] IV 02/18/24 22:00 02/19/24 21:59 objective General: NAD, AAOX3 Chest: lung paulino clear to auscultation Heart: RRR, no murmur Abdomen: non-distended, no tenderness to palpation, +BS laboratory and microbiology Laboratory Tests 02/18/24 09:06 Test 02/18/24 09:06 Range/Units Serum Glucose 267 H 74-106 mg/dL Problems(with codes): (1) COVID-19 (2) Elevated liver enzymes (3) Pneumonia (4) Respiratory failure (5) Hypernatremia (6) CHF (congestive heart failure) (7) Dyspnea Prognosis PLAN I will continue to monitor this patient daily and if his overall medical condition and swallowing does not improve then I will rediscuss the possibility of a PEG tube placement Continue pureed diet with the assistance and nectar thickened fluid if he can not tolerated Continue IV Clinimix and supportive care and repeat swallow eval next week Defer PEG tube placement for now Dietary Evaluation Review Comments: 1) Consider 1 pkt STACEY BIDWM for wound 2) If GI is accessible consider Glucerna 1.2 @ 60ml/hr x24 hrs to meet estimated needs 3) Advance pt diet when medically feasible to a CCHO 60g/Cardiac diet 4) Continue current plan of care Expected Outcomes/Goals: 1) Pt to receive adequate nutrition within 7 days of NPO status 2) Pt diet to advance 3) F/U in 2-3 days Plan discussed with: Other (Dr Ulloa) BRODERICK DAMIAN MD Feb 18, 2024 19:20
[2024-02-18] MEDS: TPN PER PHARMACY IV NR (22:59)
[2024-02-19 01:00] VITALS: BP 105/69; PULSE 107; RESP 17; TEMP 97.6; O2SAT 94
[2024-02-19 05:00] VITALS: BP 102/59; PULSE 95; RESP 18; TEMP 97.9; O2SAT 96
[2024-02-19 06:14] LABS: Basophils # (auto) 0.1 10 ^3/uL (0-0.2); Hemoglobin 10.4 g/dL (13.5-17.5); Mean Corpuscular Volume 102.1 fL (80.0-100.0); Neutrophils # (auto) 8.9 10 ^3/uL (1.6-8.6); White Blood Cell 11.5 10^3/uL (4.4-10.8)
[2024-02-19 06:18] LABS: Basophils % (auto) 0.7 % (0.0-2.0); Eosinophils # (auto) 0 10 ^3/uL (0-0.8); Eosinophils % (auto) 0.4 % (0.0-7.0); Hematocrit 31.5 % (41.0-53.0); Lymphocytes # (auto) 1.8 10 ^3/uL (0.4-5.4); Lymphocytes % (auto) 15.4 % (10.0-50.0); Mean Corpuscular Hemoglobin 33.6 pg (28.0-32.0); Mean Corpuscular Hgb Conc. 32.9 g/dL (32.0-36.0); Monocytes # (auto) 0.7 10 ^3/uL (0-1.3); Monocytes % (auto) 6.4 % (0.0-12.0); Neutrophils % (auto) 77.1 % (37.0-80.0); Platelet Count (auto) 457 10^3/uL (140-450); Red Blood Cells 3.09 10^6/uL (4.5-5.90)
[2024-02-19 06:21] LABS: Anion Gap 1 (5-15); Calcium 8.1 mg/dL (8.7-10.4); Carbon Dioxide 30 mmol/L (20-31); Chloride 104 mmol/L (98-107); Potassium 3.8 mmol/L (3.5-5.1); Sodium 135 mmol/L (136-145)
[2024-02-19 06:26] LABS: Albumin 2.7 g/dL (3.2-4.8); GFR African American 116 mL/min; GFR Non-African American 96 mL/min
[2024-02-19 06:27] LABS: BUN/Creatinine Ratio 24.1 (10.0-20.0); Blood Urea Nitrogen 20 mg/dL (9-23); Glucose 234 mg/dL (74-106)
[2024-02-19 06:29] LABS: Phosphorus 1.6 mg/dL (2.4-5.1)
[2024-02-19 08:00] VITALS: PULSE 87
[2024-02-19 09:00] VITALS: BP 104/68; PULSE 89; RESP 16; TEMP 97.8; O2SAT 96
[2024-02-19 13:00] VITALS: BP 119/64; PULSE 60; RESP 18; TEMP 98; O2SAT 96
[2024-02-19 13:29] LABS: COVID19 ANTIGEN SOFIA FIA POSITIVE (NEGATIVE)
[2024-02-19] MEDS: SODIUM PHOSPHATES 40 MEQ in D5W 5% 250 ML IV ONE (15:00)
--- NOTE | 2024-02-19 15:19 | DVHDSRES ---
Discharge Summary Date of Admission Resident Creating Document: DAVID TEMPLE RESIDENT Feb 12, 2024 at 22:07 Date of Discharge: Feb 19, 2024 Admitting Diagnosis Altered level of consciousness and acute respiratory distress Wounds: No wounds present at this time Labs/Diagnostic Data: Laboratory Results Test 02/19/24 11:30 02/19/24 05:58 02/19/24 04:42 02/18/24 09:06 SARS-CoV-2 Antigen (Rapid) Positive (NEGATIVE) POC Glucose 214 mg/dl (70-106) White Blood Count 11.5 10^3/uL (4.4-10.8) Red Blood Count 3.09 10^6/uL (4.5-5.90) Hemoglobin 10.4 g/dL (13.5-17.5) Hematocrit 31.5 % (41.0-53.0) Mean Corpuscular Volume 102.1 fL (80.0-100.0) Mean Corpuscular Hemoglobin 33.6 pg (28.0-32.0) Mean Corpuscular Hemoglobin Concent 32.9 g/dL (32.0-36.0) Red Cell Distribution Width 14.0 % (11.8-14.3) Platelet Count 457 10^3/uL (140-450) Mean Platelet Volume 7.0 fL (6.9-10.8) Neutrophils (%) (Auto) 77.1 % (37.0-80.0) Lymphocytes (%) (Auto) 15.4 % (10.0-50.0) Monocytes (%) (Auto) 6.4 % (0.0-12.0) Eosinophils (%) (Auto) 0.4 % (0.0-7.0) Basophils (%) (Auto) 0.7 % (0.0-2.0) Neutrophils # (Auto) 8.9 10 ^3/uL (1.6-8.6) Lymphocytes # (Auto) 1.8 10 ^3/uL (0.4-5.4) Monocytes # (Auto) 0.7 10 ^3/uL (0-1.3) Eosinophils # (Auto) 0 10 ^3/uL (0-0.8) Basophils # (Auto) 0.1 10 ^3/uL (0-0.2) Nucleated Red Blood Cells 0.0 % Sodium Level 135 mmol/L (136-145) Potassium Level 3.8 mmol/L (3.5-5.1) Chloride Level 104 mmol/L (98-107) Carbon Dioxide Level 30 mmol/L (20-31) Anion Gap 1 (5-15) Blood Urea Nitrogen 20 mg/dL (9-23) Creatinine 0.83 mg/dL (0.700-1.30) Glomerular Filtration Rate Calc 92 mL/min (>90) Estimated GFR () 116 mL/min Estimated GFR (Non- 96 mL/min BUN/Creatinine Ratio 24.1 (10.0-20.0) Serum Glucose 234 mg/dL (74-106) Calcium Level 8.1 mg/dL (8.7-10.4) Phosphorus Level 1.6 mg/dL (2.4-5.1) Magnesium Level 2.0 mg/dL (1.6-2.6) Albumin 2.7 g/dL (3.2-4.8) Total Bilirubin 0.4 mg/dL (0.2-1.0) Aspartate Amino Transferase (AST) 23 U/L (13-40) Alanine Aminotransferase (ALT) 18 U/L (7-40) Alkaline Phosphatase 68 U/L (46-116) Total Protein 5.9 g/dL (5.7-8.2) Test 02/17/24 04:56 02/16/24 04:36 02/15/24 14:41 02/14/24 15:45 Random Vancomycin Level 12.1 ug/mL (5-10) Triglycerides Level 132 mg/dL (< 150) Prothrombin Time 11.9 sec (9.3-11.8) Prothrombin Time INR 1.13 (0.9-1.15) Activated Partial Thromboplast Time 29.7 SEC (24.5-34.5) Vancomycin Level Trough 27.3 ug/mL (5-10) Test 02/13/24 12:20 02/13/24 02:17 02/13/24 00:52 02/12/24 18:37 Ammonia < 10 umol/L (11-32) Cholesterol Level 119 mg/dL (< 200) LDL Cholesterol 62 mg/dL (< 100) HDL Cholesterol 29 mg/dL (40-59) Urine Color Yellow (Yellow) Urine Clarity Ex.turbid (Clear) Urine pH 5.5 (5.0-9.0) Urine Specific [place] 1.018 (1.001-1.035) Urine Protein 1+ (Negative) Urine Ketones Negative (Negative) Urine Blood 3+ /uL (Negative) Urine Nitrite Negative (Negative) Urine Bilirubin Negative (Negative) Urine Urobilinogen Normal mg/dL (Negative) Urine Leukocyte Esterase Negative /uL (Negative) Urine RBC 228 /hpf (0 - 3) Urine WBC <1 /hpf (0 - 3) Urine Squamous Epithelial Cells None seen /hpf (<5) Urine Bacteria Few /hpf (None Seen) Urine Mucus Few (None Seen) Urine Yeast (Budding) Loaded /hpf (None Seen) Urine Glucose Normal mg/dL (Normal) Influenza Type A Antigen Negative (Negative) Influenza Type B Antigen Negative (Negative) Troponin I High Sensitivity 15 ng/L (</=54) Test 02/12/24 17:23 02/12/24 15:12 Blood Gas Specimen Type Arterial Blood Gas Sample Site Left radial Blood Gas Patient Temperature 37.0 Arterial Blood Date Drawn [id number] Arterial Blood pH 7.474 (7.350-7.450) Arterial Blood Partial Pressure CO2 35.9 mmHg (35.0-48.0) Arterial Blood Partial Pressure O2 163.8 mmHg (83.0-108.0) Arterial Blood HCO3 25.8 mmol/L (21.0-28.0) Arterial Blood Oxygen Saturation 99.3 % (94.0-98.0) Arterial Blood Base Excess 2.4 mmol/L (-2.0-3.0) Arterial Blood Oxyhemoglobin 98.4 % (94.0-98.0) Arterial Blood Carboxyhemoglobin 0.3 % (0.5-1.5) Arterial Blood Methemoglobin 0.6 % (0.0-1.5) Anthony Test Yes Blood Gas Total Hemoglobin 12.60 g/dL (13.5-17.5) Blood Gas Liter Flow 5.00 Blood Gas Modality Mask - simple Blood Gas Spontaneous Rate 20 FiO2 % 40.0 Lactic Acid Level 1.2 mmol/L (0.4-2.0) B-Type Natriuretic Peptide 39.91 pg/mL (0-100) Other Laboratory Tests 02/19/24 04:42 Brief Hx & Hospital Course: This is a 73-year-old male with PMH of CHF, diabetes mellitus, DKA, AFib, hypertension, hyperlipidemia, advanced dementia, peripheral neuropathy, anxiety, CAD, BPH and polysubstance abuse disorder presented to the ED with altered level of consciousness since morning prior to this admission. Patient came from [facility] acute care due to abnormal level of potassium 5.3. On admission patient was on alert and oriented x2, patient came from [facility] (SNF facility). The patient was discharged on 01/31/2024. At that time the patient was treated for acute on chronic systolic heart failure and aspiration pneumonia for which the patient received IV Zosyn and then was switched to IV Bactrim due to sputum culture growing Burkholderia cepacia. At this time, the patient came due to ALOC with mild SOB. Initial chest x-ray was showing possible vascular congestion with bibasilar patchy infiltrates. A CT scan of the head without contrast was performed which came back unremarkable. Patient tested positive for COVID-19 but did not required elevated amounts of oxygen during this hospitalization. The patient was initially started on IV vancomycin and cefepime due to recent medical history of hospitalization three weeks ago during one month in the hospital and treated with IV Zosyn. The patient also came from a alf facility which all were risk factors for MRSA and Pseudomonas. The patient was restarted on carvedilol 3.125 b.i.d., gabapentin 300 mg b.i.d. and rest of home medications. The patient initially failed swallow evaluation, reason why was started initially on Clinimix and then was transitioned to TPN while was evaluated by GI for possible PEG tube placement. GI was on board, assessed the patient and determined that the patient was able to swallow and tolerate pureed diet so was not a candidate for PEG tube placement at this time. The patient is currently tolerating pureed diet but it still at significant high risk of aspiration. GI recommended to try to continue pureed diet at this time. Today patient was evaluated, and reporting feeling minimally fatigued and weak. Otherwise the patient has no respiratory distress and is not requiring oxygen supplementation at this time. Labs are grossly unremarkable and patient will be discharged to SNF to [facility]. Patient agrees and understands the plan. ROS Constitutional: Denies weight loss, fever and chills. HEENT: Denies changes in vision and hearing. Respiratory: Denies shortness of breath and cough Cardiovascular: Denies chest discomfort or palpitations GI: Denies abdominal pain, nausea, vomiting and diarrhea. : Denies dysuria and urinary frequency. Musculoskeletal: Denies myalgias and joint pain Skin: Denies rash and pruritus. Neurological: Denies dizziness, headache, vision or hearing problems Physical Examination General: Patient alert and oriented in person and place but not time. Patient has underlying advanced dementia but is following commands. HEENT: Normocephalic, atraumatic, moist mucous membranes Respiratory/pulmonary: There are still bilateral coarse sounds with a associated secretions present but otherwise bilat lungs sounds grossly clear. No wheezes at this time Cardiovascular: Normal heart sounds S1 and S2 with no associated murmurs Abdomen: Abdomen nondistended, there is no pain to palpation in any of the abdominal quadrants, no palpable masses. Extremities: Left upper extremity is bigger in size compared to right upper extremity. There is no peripheral edema present at the lower extremities. Peripheral Pulses: 3+ Radial (R). 3+ Radial (L). 3+ Dorsalis pedis (R). 3+ Dorsalis pedis(L) Skin: No rashes or pruritus, there is no sacral edema present at this time. Neurological: Patient has underlying dementia, alert and oriented x2. Cranial nerves unable to be evaluated independently due to gen weakness. Consults/Reason for consult N/A Operations or Procedures CHEST RADIOGRAPH Indication:sob Technique: Single frontal view of the chest was obtained Comparison: XY CHEST PORTABLE on DOS: 01/27/24, XY CHEST XRAY 1 VIEW on DOS: 01/26/24, XY CHEST XRAY 1 VIEW on DOS: 01/25/24 FINDINGS: Lines and Tubes: None Lungs: Interstitial prominence of bilateral lower lung zones. Pleura: No effusion. No pneumothorax. Cardiomediastinal contours: Unremarkable Bones: No acute osseous abnormality. IMPRESSION: Interstitial prominence bilateral lower lung zones which may be from fibrotic changes with underlying pneumonia / atelectasis not excluded. EXAM: CT HEAD WITHOUT CONTRAST INDICATION: Altered level of consciousness TECHNIQUE: CT of the head without intravenous contrast. Radiation Dose Information: CT Dose: CTDI volume is 60.63 mGy. Dose-length product is 971.84 mGy*cm The dose indicators for CT are the volume Computed Tomography (CT) Dose Index (CTDIvol) and the Dose Length Product (DLP), and are measured in units of mGy and mGy-cm, respectively. These indicators are not patient dose, but values generated from the CT scanner acquisition factors. The report includes radiation exposure data for exposures received during this examination. COMPARISON: CT HEAD WITHOUT CONTRAST on DOS: 01/08/24 FINDINGS: There is no evidence of acute intracranial hemorrhage, extra-axial collection, mass effect, midline shift, herniation or hydrocephalus. The ventricles, sulci and cisterns are age appropriate. The german-white differentiation is intact. Patchy periventricular and subcortical white matter hypoattenuation is nonspecific but may be related to small vessel ischemic disease. The visualized paranasal sinuses and mastoid air cells are clear. The surrounding soft tissues and osseous structures are unremarkable. IMPRESSION: No acute intracranial abnormality. EXAM: XY CHEST PORTABLE CLINICAL HISTORY: NGT PLACEMENT TECHNIQUE: Single AP view of the chest WID: COMPARISON: XY CHEST PORTABLE on DOS: 02/12/24 FINDINGS: Lines and tubes: NG tube in place which descends beneath the level of the diaphragm and tip not visualized in field of view. Chest: The heart size and pulmonary vasculature is within normal limits. No pleural effusion or pneumothorax. There are reticular opacities in the bilateral lung bases, greater on the left. The osseous structures are grossly intact. Multilevel thoracic spondylosis. IMPRESSION: NG tube in place which descends beneath the level of the diaphragm and tip not visualized in field of view. Condition at Discharge: Stable Final Diagnosis/Problems List Altered level of consciousness likely due to acute metabolic encephalopathy Acute hypoxic respiratory failure likely due to Covid 19 pneumonia, R/O gram +/- pneumonia SHELLI on CKD stage II Acute on chronic systolic heart failure (HFrEF 20%) Dyslipidemia Primary hypertension Type 2 diabetes mellitus BPH Discharge Disposition: Group Home Facility Discharge Instruct/Medications Diet: Cardiac 2g Na,low cholest Activity: No Restrictions, As Tolerated Follow Up/Referral: F/U with PCP in 1-2 weeks Medications: Continue meds at SNF Discharge Statement: "Patient was advised to return to the ER or call 911 if any headaches, dizziness, shortness of breath, chest pain, abdominal pain, bleeding, fevers, or worsening of medical condition. Patient was counseled about treatment plan, medications, possible side effects, patientverbalized understanding. All questions were answered to the best of my ability. This discharge took greater then 30 minutes in planning, reviewing documentation, counseling the patient, and discussing with other team members." ASSESSMENT ASSESSMENT Assessment Altered level of consciousness likely due to acute metabolic encephalopathy Acute hypoxic respiratory failure likely due to Covid 19 pneumonia, R/O gram +/- pneumonia SHELLI on CKD stage II Acute on chronic systolic heart failure (HFrEF 20%) Dyslipidemia Primary hypertension Type 2 diabetes mellitus BPH Date of Service: Feb 19, 2024 Billing Provider: HÉCTOR RIBERA MD Common Visit Codes: 41800-WCB/OBS DISCH DAY >30min DAVID TEMPLE RESIDENT Feb 19, 2024 15:19 HÉCTOR RIBERA MD Feb 19, 2024 20:50
--- NOTE | 2024-02-19 18:24 | DVHPN2 ---
Progress Note - Dictate Date Seen: Feb 19, 2024 Has the PT tested + for MRSA If YES, has PT been informed?: No Medical Necessity Reason Pt with a Central, PICC or Fol: No Subjective Patient is able to tolerate pureed diet with the assistance and he takes his medications with applesauce Patient does not do well with liquids even nectar thickened liquids He was on IV fluids and IV Clinimix Pt is COVID positive vital signs Vital Sign Date Time Temp Pulse Resp B/P (MAP) Pulse Ox O2 Delivery O2 Flow Rate FiO2 02/19/24 13:00 98.0 60 18 119/64 (82) 96 98.0 02/19/24 08:00 Room Air* 0 21 Total Intake and Output 02/18/24 02/18/24 02/19/24 15:00 23:00 07:00 Intake Total 50 ml 1534 ml 175 ml Output Total 1050 ml 850 ml Balance 50 ml 484 ml -675 ml medications Current Medications Medications Dose Ordered Sig/Jessica Route Start Time Stop Time Status Last Admin Dose Admin Acetaminophen 325 mg Q4HP PRN PO 02/12/24 22:15 02/17/24 22:01 325 MG Acetaminophen/ Hydrocodone Bitart 1 tab Q4HP PRN PO 02/12/24 22:15 Ondansetron HCl 4 mg Q4HP PRN IV 02/12/24 22:15 Enoxaparin Sodium 40 mg DAILY SC 02/13/24 10:00 02/19/24 11:20 40 MG Nitroglycerin 0.4 mg Q5MINP PRN SL 02/12/24 22:15 Morphine Sulfate 2 mg Q30M PRN IV 02/12/24 22:15 Carvedilol 3.125 mg BID PO 02/13/24 10:00 02/19/24 11:20 3.125 MG Gabapentin 300 mg BID PO 02/13/24 10:00 02/19/24 11:20 300 MG Atorvastatin Calcium 40 mg HS PO 02/13/24 22:00 02/18/24 23:15 40 MG Tamsulosin HCl 0.4 mg QPM PO 02/13/24 18:00 02/19/24 17:59 0.4 MG Aspirin 81 mg DAILY PO 02/14/24 10:00 02/19/24 11:18 81 MG Enteral Nutritional Formula 1,000 ml 30ML/HR GT 02/14/24 10:15 Diagnostic Test (Pha) 1 strip Q6HR 02/14/24 18:00 02/19/24 18:12 1 STRIP Insulin Human Regular FOLLOW SLIDING SCALE Q6HR SC 02/14/24 18:00 02/19/24 18:12 16 UNITS Dextrose 50 ml UD IV 02/14/24 18:00 Amino Acids 0 ml @ 0 mls/hr PER PHARMACY IV 02/15/24 14:15 Sodium Chloride 10 ml QSHIFT@10,22 IV 02/15/24 22:00 02/19/24 11:18 10 ML Cefepime HCl 50 ml @ 12.5 mls/hr Q8H IV 02/16/24 14:00 02/19/24 16:16 12.5 MLS/HR Fat Emulsion Intravenous 100 ml/Sodium Acetate 30 meq/Sodium Phosphate 40 meq/ Potassium Chloride 20 meq/ Potassium Acetate 40 meq/Magnesium Sulfate 18 meq/ Multivitamins 10 ml/Chromium/ Copper/Manganese/ Zinc 1 ml/Insulin Human Regular 18 units/Amino Acids/ Dextrose/Purified Water 1,270.68 ml @ 53 mls/hr [id number] IV 02/18/24 22:00 02/19/24 21:59 02/18/24 22:59 53 MLS/HR Fat Emulsion Intravenous 100 ml/Sodium Phosphate 20 meq/ Potassium Chloride 30 meq/ Potassium Phosphate 44 meq/ Magnesium Sulfate 18 meq/ Multivitamins 10 ml/Chromium/ Copper/Manganese/ Zinc 1 ml/Insulin Human Regular 22 units/Amino Acids/ Dextrose/Purified Water 1,245.72 ml @ 53 mls/hr [id number] IV 02/19/24 22:00 02/20/24 21:30 objective General: NAD, AAOX3 Chest: lung paulino clear to auscultation Heart: RRR, no murmur Abdomen: non-distended, no tenderness to palpation, +BS laboratory and microbiology Laboratory Tests 02/19/24 04:42 Test 02/19/24 04:42 Range/Units Serum Glucose 234 H 74-106 mg/dL Problems(with codes): (1) COVID-19 (2) Elevated liver enzymes (3) Pneumonia (4) Respiratory failure (5) CHF (congestive heart failure) (6) Generalized weakness Prognosis PLAN Continue pureed diet with the assistance and nectar thickened fluid if he can not tolerate it Continue IV Clinimix and supportive care and repeat swallow eval next week Defer PEG tube placement for now Discharge planning is in progress to SNF; patient is to go with a PICC line for IV antibiotics and possible IV nutrition if required Dietary Evaluation Review Comments: 1) Consider 1 pkt STACEY BIDWM for wound 2) If GI is accessible consider Glucerna 1.2 @ 60ml/hr x24 hrs to meet estimated needs 3) Advance pt diet when medically feasible to a CCHO 60g/Cardiac diet 4) Continue current plan of care Expected Outcomes/Goals: 1) Pt to receive adequate nutrition within 7 days of NPO status 2) Pt diet to advance 3) F/U in 2-3 days Plan discussed with: Other (Dr Ulloa) BRODERICK DAMIAN MD Feb 19, 2024 18:24
[2024-02-19] MEDS ORDERED: TPN PER PHARMACY IV NR (22:00)
== END 2024-02-19 21:00 | DRG 137 ==
LOC: EDBD 14:18 → ER 14:33 → OVERFLOW 22:07 → CENTRAL 02-13 21:45 → TELE-CENTR 02-14 06:48
PROVIDERS: ADMIT Internal Medicine Geriatric Medicine; ATTEND Internal Medicine Geriatric Medicine
PROC: 02HV33Z Insertion of Infusion Device into Superior Vena Cava, Percutaneous Approach (ICD-10-PCS; principal; 2024-02-15)
PROC: B548ZZA Ultrasonography of Superior Vena Cava, Guidance (ICD-10-PCS; 2024-02-15)
DX: U07.1 COVID-19 (principal); J96.01 Acute respiratory failure with hypoxia; J12.82 Pneumonia due to coronavirus disease 2019; G93.41 Metabolic encephalopathy; I50.23 Acute on chronic systolic (congestive) heart failure; E87.0 Hyperosmolality and hypernatremia; E11.22 Type 2 diabetes mellitus with diabetic chronic kidney disease; I13.0 Hypertensive heart and chronic kidney disease with heart failure and stage 1 through stage 4 chronic kidney disease, or unspecified chronic kidney disease; E78.5 Hyperlipidemia, unspecified; E11.42 Type 2 diabetes mellitus with diabetic polyneuropathy; F03.90 Unspecified dementia, unspecified severity, without behavioral disturbance, psychotic disturbance, mood disturbance, and anxiety; I48.91 Unspecified atrial fibrillation; I25.10 Atherosclerotic heart disease of native coronary artery without angina pectoris; E87.6 Hypokalemia; N18.2 Chronic kidney disease, stage 2 (mild); N17.9 Acute kidney failure, unspecified; N40.0 Benign prostatic hyperplasia without lower urinary tract symptoms; Z87.442 Personal history of urinary calculi; Z99.81 Dependence on supplemental oxygen; Z79.899 Other long term (current) drug therapy
CPT/HCPCS: 36415; 36569; 36600; 70450; 71045; 76937; 80048; 80053; 80061; 80069; 80202; 81001; 82140; 82565; 82805; 82962; 83605; 83735; 83880; 84100; 84478; 84484; 85025; 85610; 85730; 87081; 87426; 87804; 92507; 92610; 93005; 97110; 97163; 97530; G0378; J1815; J3480; J7060